=== PATIENT | female | born 1990 | race Caucasian/White ===

== ENCOUNTER 2018-06-02 06:55 | Emergency (ER) | payer MEDICAID, SELFPAY ==
[2018-06-02 07:55] LABS: Absolute Lymphocytes (CBC) 2.1 K/uL (0.7-4.9); Absolute Monocytes 0.4 K/uL (0.1-1.3); Absolute Neutrophil 4.2 K/uL (1.8-8.0); Basophils % 0.5 % (0-1.3); Eosinophils % 1.3 % (0-4.4); Lymphocytes % 31.2 % (15.3-44.8); MCH 32.2 pg (27.0-35.0); MCV 92.1 fL (80-100); MPV 10.5 fL (7.6-11.3); Monocytes % 5.3 % (3.3-12.3); RBC Red Blood Cell Count 4.56 M/uL (3.86-4.86)
[2018-06-02 08:13] LABS: BUN Blood Urea Nitrogen 10 mg/dL (7-18); Bicarbonate 24 mmol/L (21-32); Glucose Level 97 mg/dL (74-106); Potassium 3.7 mmol/L (3.5-5.1); Sodium Level 137 mmol/L (136-145)
[2018-06-02 08:22] LABS: HCG, Quantitative 1038 mIU/mL (1-3)
[2018-06-02 08:42] LABS: Urine RBC <5 /HPF (NONE SEEN)
[2018-06-02 08:43] LABS: Urine Bacteria <20 /HPF (<20); Urine Culture Reflex Order NOT NEEDED
[2018-06-02 09:21] LABS: Urine Blood NEGATIVE (NEG); Urine Glucose NEGATIVE (NEG); Urine Protein NEGATIVE (NEG); Urine Specific Gravity 1.025 (1.005-1.030)
--- NOTE | 2018-06-02 10:07 | EDPHYS ---
Physician Documentation [facility] Name: Verenice Ovalle Age: 27 yrs Sex: Female : 1990 Arrival Date: 06/02/2018 Time: 06:58 Bed 8 Private MD: ED Physician Patric Martinez HPI: 06/02 07:42 This 27 yrs old Female presents to ER via Ambulatory with complaints of rn Vaginal Bleeding, + Preg <12wks. 07:42 The patient presents to the emergency department with vaginal bleeding, that is light, rn with no clots. The estimated gestational age is 6 weeks. course: care: none, Leakage of Fluid: none appreciated, Ultrasound: the patient has not had an ultrasound. Previous pregnancies: in previous pregnancies patient has had. The patient has experienced similar episodes in the past. at approx 6-7 weeks by LMP presents with vaginal bleeding, light, assoc with lower abd cramping, similar episodes in past with 2 previous miscarriages as well as when she had her daughter. No trauma. States is RH-.. 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 - Social history:: Smoking status: Patient/guardian denies using tobacco. - Ebola Screening: : No symptoms or risks identified at this time. - Family history:: not pertinent. - Hospitalizations: : No recent hospitalization is reported. ROS: 07:42 Constitutional: Negative for fever, chills, and weight loss, Eyes: Negative for injury, rn pain, redness, and discharge, Neck: Negative for injury, pain, and swelling, Cardiovascular: Negative for chest pain, palpitations, and edema, Respiratory: Negative for shortness of breath, cough, wheezing, and pleuritic chest pain, Abdomen/GI: + lower abd cramping Back: Negative for injury and pain, : + vaginal bleeding MS/Extremity: Negative for injury and deformity, Skin: Negative for injury, rash, and discoloration, Neuro: Negative for headache, weakness, numbness, tingling, and seizure. Exam: 07:42 Constitutional: This is a well developed, well nourished patient who is awake, alert, rn and in no acute distress. Head/Face: Normocephalic, atraumatic. Eyes: Pupils equal round and reactive to light, extra-ocular motions intact. Lids and lashes normal. Conjunctiva and sclera are non-icteric and not injected. Cornea within normal limits. Periorbital areas with no swelling, redness, or edema. Abdomen/GI: soft, non-tender Back: No spinal tenderness. No costovertebral tenderness. Full range of motion. Skin: Warm, dry with normal turgor. Normal color with no rashes, no lesions, and no evidence of cellulitis. MS/ Extremity: Pulses equal, no cyanosis. Neurovascular intact. Full, normal range of motion. Equal circumference. Neuro: Awake and alert, GCS 15, oriented to person, place, time, and situation. Cranial nerves II-XII grossly intact. Motor strength 5/5 in all extremities. Sensory grossly intact. Cerebellar exam normal. Normal gait. Vital Signs: 07:03 BP 139 / 99; Pulse 87; Resp 18 S; Temp 98.8(O); Pulse Ox 98% on R/A; Weight 86.18 kg aa5 (R); Height 5 ft. 10 in. (177.80 cm) (R); Pain 7/10; 07:03 Body Mass Index 27.26 (86.18 kg, 177.80 cm) aa5 MDM: 07:01 Patient medically screened. rn 10:05 Differential diagnosis: ectopic . Data reviewed: vital signs, nurses notes, rn family practice test result(s), radiologic studies, ultrasound, and as a result, I will discharge patient. Counseling: I had a detailed discussion with the patient and/or guardian regarding: the historical points, exam findings, and any diagnostic results supporting the discharge/admit diagnosis, lab results, radiology results, the need for outpatient follow up, to return to the emergency department if symptoms worsen or persist or if there are any questions or concerns that arise at home. Special discussion: I discussed with the patient/guardian in detail that at this point there is no indication for admission to the hospital. It is understood, however, that if the symptoms persist or worsen the patient needs to return immediately for re-evaluation. Based on the history and exam findings, there is no indication for further emergent testing or inpatient evaluation. I discussed with the patient/guardian the need to see the OB Gyne specialist for further evaluation of the symptoms. ED course: Unclear ultrasound, mild bleeding, normal labs, normal urine, UPT +, beta 1000, return in 48 hours for repeat. Rhogam given.. 06/02 07:13 Order name: Quantitative Hcg; Complete Time: 08:39 rn 06/02 07:13 Order name: Abo/rh Typing 06/02 07:13 Order name: Basic Metabolic Panel; Complete Time: 08:39 rn 06/02 07:13 Order name: CBC with Diff; Complete Time: 08:03 rn 06/02 08:06 Order name: Urine Microscopic Only; Complete Time: 10:04 06/02 08:11 Order name: Urine Dipstick--Ancillary (enter results); Complete Time: 10:04 06/02 07:13 Order name: US Transvaginal Ob; Complete Time: 10:30 rn 06/02 08:11 Order name: Urine --Ancillary (enter results); Complete Time: 10:04 06/02 08:51 Order name: Antibody Screen [facility] 06/02 09:16 Order name: Rh Typing [facility] 06/02 09:16 Order name: Fetalscreen [facility] 06/02 09:16 Order name: Cord Rh type [facility] 06/02 09:16 Order name: Rhogam [facility] 06/02 07:13 Order name: Urine Test (obtain specimen); Complete Time: 07:48 06/02 07:13 Order name: IV Saline Lock; Complete Time: 07:43 06/02 07:13 Order name: Labs collected and sent; Complete Time: 07:43 rn 06/02 07:13 Order name: NPO; Complete Time: 07:43 rn 06/02 07:13 Order name: Urine Dipstick-Ancillary (obtain specimen); Complete Time: 07:43 rn Administered Medications: 10:28 Drug: RhoGAM (Human) 300 mcg Route: IM; Site: right deltoid; jl7 10:52 Follow up: Response: No adverse reaction aa5 Disposition: 06/02/18 10:06 Discharged to Home. Impression: Threatened . - Condition is Stable. - Discharge Instructions: Threatened Miscarriage, Vaginal Bleeding During , First Trimester, Pelvic Rest. - Medication Reconciliation Form, Thank You Letter, Antibiotic Education, Prescription Opioid Use form. - Follow up: Private Physician; When: As needed; Reason: Recheck today's complaints, Re-evaluation by your physician. - Problem is new. - Symptoms have improved. Signatures: Dispatcher [employer] EDMS Patric Martinez MD MD rn Calderon, Audri RN RN aa5 Misty Gómez RN RN jl7 Corrections: (The following items were deleted from the chart) 10:54 10:06 06/02/2018 10:06 Discharged to Home. Impression: Threatened . Condition aa5 is Stable. Forms are Medication Reconciliation Form, Thank You Letter, Antibiotic Education, Prescription Opioid Use. Follow up: Private Physician; When: As needed; Reason: Recheck today's complaints, Re-evaluation by your physician. Problem is new. Symptoms have improved. rn
--- NOTE | 2018-06-02 10:07 | ER ---
Nurse's Notes [facility] Name: Verenice Ovalle Age: 27 yrs Sex: Female : 1990 Arrival Date: 06/02/2018 Time: 06:58 Bed 8 Private MD: Diagnosis: Threatened Presentation: 06/02 07:00 Presenting complaint: Patient states: lower abd cramping and vaginal bleeding that aa5 began this morning. 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 Pt reports positive test yesterday. 07:00 Transition of care: patient was not received from another setting of care. Onset of aa5 symptoms was June 02, 2018. Risk Assessment: Do you want to hurt yourself or someone else? Patient reports no desire to harm self or others. Initial Sepsis Screen: Does the patient meet any 2 criteria? No. Patient's initial sepsis screen is negative. Does the patient have a suspected source of infection? No. Patient's initial sepsis screen is negative. Care prior to arrival: None. 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 - Social history:: Smoking status: Patient/guardian denies using tobacco. - Ebola Screening: : No symptoms or risks identified at this time. - Family history:: not pertinent. - Hospitalizations: : No recent hospitalization is reported. Screenin:37 Abuse screen: Denies threats or abuse. Denies injuries from another. Nutritional jl7 screening: No deficits noted. Tuberculosis screening: No symptoms or risk factors identified. Fall Risk IV access (20 points). Total Babocck Fall Scale indicates No Risk (0-24 pts). Assessment: 07:37 Obstetrical Assessment: General assessment: awake and alert, skin warm and dry, jl7 respirations even and unlabored. Pain: Complains of pain in suprapubic area Quality of pain is described as crampy, Pain began This morning Is continuous. GI: No signs and/or symptoms were reported involving the gastrointestinal system. : Reports cramping, vaginal bleeding that is light flow. 08:30 Reassessment: No changes from previously documented assessment. Patient and/or family jl7 updated on plan of care and expected duration. Pain level reassessed. Patient is alert, oriented x 3, equal unlabored respirations, skin warm/dry/pink. 09:48 Reassessment: Patient appears in no apparent distress at this time. Patient and/or sg family updated on plan of care and expected duration. Pain level reassessed. awaiting lab results at this time, pt stated understanding, will continue to monitor. 10:06 Reassessment: Awaiting RhoGam from blood bank. Updated pt, pt verbalized understanding. jl7 10:52 Reassessment: Patient is alert, oriented x 3, equal unlabored respirations, skin aa5 warm/dry/pink. Vital Signs: 07:03 BP 139 / 99; Pulse 87; Resp 18 S; Temp 98.8(O); Pulse Ox 98% on R/A; Weight 86.18 kg aa5 (R); Height 5 ft. 10 in. (177.80 cm) (R); Pain 7/10; 07:03 Body Mass Index 27.26 (86.18 kg, 177.80 cm) aa5 Vitals: 07:40 Heart Tones Does not meet criteria. jl7 ED Course: 06:58 Patient arrived in ED. am2 07:00 Arm band placed on Patient placed in an exam room, on a stretcher. aa5 07:01 Patric Martinez MD is Attending Physician. rn 07:07 Triage completed. aa5 07:16 Radiology exam delayed due to lab results not completed at this time. (HCG) aa4 test not completed at this time. 07:34 Misty Gómez, RN is Primary Nurse. jl7 07:37 Patient has correct armband on for positive identification. Placed in gown. Bed in low jl7 position. Call light in reach. Side rails up X 1. Pulse ox on. NIBP on. 07:37 Initial lab(s) drawn, by me, sent to lab. Inserted saline lock: 20 gauge in right jl7 antecubital area, using aseptic technique. Blood collected. 08:09 Urine collected: clean catch specimen, clear, eusebio colored. jb1 08:41 US Transvaginal Ob In Process Unspecified. EDMS 10:51 No provider procedures requiring assistance completed. IV discontinued, intact, aa5 bleeding controlled, No redness/swelling at site. Pressure dressing applied. Administered Medications: 10:28 Drug: RhoGAM (Human) 300 mcg Route: IM; Site: right deltoid; jl7 10:52 Follow up: Response: No adverse reaction aa5 Outcome: 10:06 Discharge ordered by . rn 10:52 Discharged to home ambulatory. aa5 10:52 Condition: stable 10:52 Discharge instructions given to patient, Instructed on discharge instructions, follow up and referral plans. Demonstrated understanding of instructions, follow-up care. 10:54 Patient left the ED. aa5 Signatures: Dispatcher [employer] EDMS Michael Casiano jb1 Marvin Schreiber RN RN Kira Hagan4 Patric Martinez MD MD rn Calderon, Audri, RN RN aa5 Misty Gómez RN RN jl7 Kira Jurado
--- NOTE | 2018-06-02 10:11 | RAD REPORT ---
EXAM DESCRIPTION: US - Transvaginal OB - 06/02/2018 9:11 am CLINICAL HISTORY: Abd pain;Vaginal bleeding COMPARISON: TRANSVAGINALOB dated 03/26/2014 FINDINGS: An irregularly-shaped collection is present in the fundal region of the endometrium measur ing 15 x 13 x 6 mm. This does not have the appearance or shape of a normal gestational sac. There is no abnormal internal IUP finding. Endometrial thickening is seen to measure up to 2 cm. The maternal adnexa and ovaries are within normal limits. Normal Doppler blood flow was demonstrated to both ovaries. 2.8 x 2.6 cm right ovarian cyst. IMPRESSION: Normal findings of an IUP are not seen. There is an a irregular shaped fluid collection in the fundal endometrium. In the setting of a positive HCG, findings indicate a of unknown location. Advise follow-up serial HCG levels and ultrasound in 10-12 days.
== END 2018-06-02 10:54 | disposition home or self-care (01) ==
LOC: ER 06:55
DX: O20.0 Threatened abortion (principal); Z3A.01 Less than 8 weeks gestation of pregnancy; Z88.0 Allergy status to penicillin
CPT/HCPCS: 36415; 76817; 80048; 81003; 81015; 81025; 84702; 85025; 86850; 86900; 86901; 96372; 99284; J2790

== ENCOUNTER 2018-06-04 06:39 | Emergency (ER) | payer OTHER, SELFPAY ==
--- NOTE | 2018-06-04 08:01 | ER ---
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 Transition of care: patient was not received from another setting of care. Onset of symptoms is unknown. Risk Assessment: Do you want to hurt yourself or someone else? Patient reports no desire to harm self or others. Initial Sepsis Screen: Does the patient meet any 2 criteria? No. Patient's initial sepsis screen is negative. Does the patient have a suspected source of infection? No. Patient's initial sepsis screen is negative. Care prior to arrival: None. 07:03 Method Of Arrival: Ambulatory bb 07:03 Acuity: YUDI 4 bb Triage Assessment: 07:06 General: Appears in no apparent distress. Behavior is calm, cooperative. Pain: Denies bb pain. Neuro: Level of Consciousness is awake, alert, obeys commands, Oriented to person, place, time, situation. : Denies vaginal bleeding. SLP: 07:06 4, Full Term 1, Premature 0, 2, Living 1, LMP 04/19/2018 bb Historical: - Allergies: 07:06 PENICILLINS; bb - Home Meds: 07:06 None [Active]; bb - PMHx: 07:06 None; bb - PSHx: 07:06 Tonsillectomy; bb - Immunization history:: Adult Immunizations up to date. - Social history:: Smoking status: Patient/guardian denies using tobacco, Patient/guardian denies using alcohol, street drugs. - Ebola Screening: : No symptoms or risks identified at this time. Screenin:08 Abuse screen: Denies threats or abuse. Nutritional screening: No deficits noted. bb Tuberculosis screening: No symptoms or risk factors identified. Fall Risk None identified. Assessment: 07:08 Reassessment: No changes from previously documented assessment. see triage assessment. bb 07:54 Reassessment: Patient appears in no apparent distress at this time. Patient and/or em family updated on plan of care and expected duration. Pain level reassessed. Patient is alert, oriented x 3, equal unlabored respirations, skin warm/dry/pink. Vital Signs: 07:06 BP 134 / 96; Pulse 77; Resp 16 S; Temp 98.4(O); Pulse Ox 97% on R/A; Weight 86.18 kg bb (R); Height 5 ft. 10 in. (177.80 cm) (R); Pain 0/10; 07:54 BP 128 / 86; Pulse 68; Resp 19; Pulse Ox 100% on R/A; Pain 0/10; em 07:06 Body Mass Index 27.26 (86.18 kg, 177.80 cm) ED Course: 06:41 Patient arrived in ED. 07:02 Brittni Carl NP is PHCP. 1 07:02 Kenrick Main MD is Attending Physician. 1 07:05 Triage completed. bb 07:06 Arm band placed on Patient placed in an exam room, on a stretcher, on pulse oximetry. bb 07:08 Patient has correct armband on for positive identification. Bed in low position. Call bb light in reach. Side rails up X 1. 07:08 No provider procedures requiring assistance completed. 07:09 Louie Marie LVN is Primary Nurse. em 08:00 Alli Biswas MD is Referral Physician. rh1 08:17 Patient did not have IV access during this emergency room visit. em Administered Medications: No medications were administered Outcome: 08:00 Discharge ordered by MD. 1 08:17 Discharged to home ambulatory. em 08:17 Condition: good 08:17 Discharge instructions given to patient, Instructed on discharge instructions, follow up and referral plans. Demonstrated understanding of instructions, follow-up care. 08:18 Patient left the ED. em Signatures: Vannesa Vazquez Louie Marie LVN LVN em Tracy Lee RN RN bb Brittni Carl NP HYDRAULIC DREDGE OPERATOR rh1
--- NOTE | 2018-06-04 08:01 | EDPHYS ---
Physician Documentation [facility] Name: Verenice Ovalle Age: 27 yrs Sex: Female : 1990 Arrival Date: 06/04/2018 Time: 06:41 Bed 18 Private MD: ED Physician Kenrick Main HPI: 06/04 07:15 This 27 yrs old Female presents to ER via Ambulatory with complaints of Want rh1 hcg levels checked. 07:15 She was here 2 days ago with Hcg 1000 and here to have repeat level. US showed rh1 irregular fluid collection in fundus, without normal IUP findings. She denies any further bleeding, last night had some cramping which is resolved today.. Onset: The symptoms/episode began/occurred 3 day(s) ago. Associated signs and symptoms: The patient has no apparent associated signs or symptoms. Severity of symptoms: At their worst the symptoms were moderate in the emergency department the symptoms have improved. The patient has experienced similar episodes in the past. The patient has been recently seen by a physician: 2 day(s) ago. 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 - Social history:: Smoking status: Patient/guardian denies using tobacco, Patient/guardian denies using alcohol, street drugs. - Ebola Screening: : No symptoms or risks identified at this time. ROS: 07:15 Constitutional: Negative for fever, chills rh1 07:15 Cardiovascular: Negative for chest pain, edema. 07:15 Respiratory: Negative for shortness of breath. 07:15 Abdomen/GI: Negative for abdominal pain, nausea, vomiting, and diarrhea. 07:15 : Negative for vaginal bleeding, vaginal discharge. 07:15 Skin: Negative for diaphoresis, discoloration. 07:15 Neuro: Negative for dizziness, syncope, near syncope. 07:15 All other systems are negative. Exam: 07:15 Constitutional: This is a well developed, well nourished patient who is awake, alert, rh1 and in no acute distress. Head/Face: Normocephalic, atraumatic. Cardiovascular: Regular rate and rhythm with a normal S1 and S2. No gallops, murmurs, or rubs. No JVD. No pulse deficits. Respiratory: Lungs have equal breath sounds bilaterally, clear to auscultation. No rales, rhonchi or wheezes noted. No increased work of breathing. Abdomen/GI: Soft, non-tender, with normal bowel sounds. No distension. No guarding or rebound. No evidence of tenderness throughout. Back: No spinal tenderness. No costovertebral tenderness. Full range of motion. Skin: Warm, dry with normal turgor. Normal color with no rashes, no lesions, and no evidence of cellulitis. 07:15 Eyes: Pupils: equal, right pupil is approximately 3 mm(s), left pupil is approximately 3 mm(s), Extraocular movements: intact throughout. 07:15 Cardiovascular: Edema: is not appreciated. 07:15 Musculoskeletal/extremity: Calves: are non-tender, have equal circumference. 07:15 Neuro: Orientation: is normal, to person, place \T\ time. Mentation: is normal, lucid, able to follow commands, Motor: is normal, moves all fours, Sensation: is normal, no obvious gross deficits, Gait: is steady, at a normal pace, without difficulty. Vital Signs: 07:06 BP 134 / 96; Pulse 77; Resp 16 S; Temp 98.4(O); Pulse Ox 97% on R/A; Weight 86.18 kg bb (R); Height 5 ft. 10 in. (177.80 cm) (R); Pain 0/10; 07:54 BP 128 / 86; Pulse 68; Resp 19; Pulse Ox 100% on R/A; Pain 0/10; em 07:06 Body Mass Index 27.26 (86.18 kg, 177.80 cm) bb MDM: 07:15 Patient medically screened. rh1 07:59 Data reviewed: vital signs, nurses notes, lab test result(s), and as a result, I will 1 discharge patient. Data interpreted: Pulse oximetry: on room air is 97 %. Interpretation: normal. Counseling: I had a detailed discussion with the patient and/or guardian regarding: the historical points, exam findings, and any diagnostic results supporting the discharge/admit diagnosis, lab results, the need for outpatient follow up, an OB/Gyne specialist, to return to the emergency department if symptoms worsen or persist or if there are any questions or concerns that arise at home. 06/04 07:09 Order name: HCG-Quantitative; Complete Time: 07:59 rh1 Administered Medications: No medications were administered Disposition: 08:19 Co-signature as Attending Physician, Kenrick Main MD I agree with the assessment and kdr plan of care. Disposition: 06/04/18 08:00 Discharged to Home. Impression: Threatened . - Condition is Stable. - Discharge Instructions: Threatened Miscarriage, Vaginal Bleeding During , First Trimester, Pelvic Rest. - Medication Reconciliation Form, Thank You Letter, Antibiotic Education, Prescription Opioid Use form. - Follow up: Alli Biswas MD; When: 1 - 2 days; Reason: Further diagnostic work-up, Recheck today's complaints, Continuance of care. Follow up: Emergency Department; When: As needed; Reason: Fever > 102 F, If symptoms return, Trouble breathing, Worsening of condition. - Problem is an ongoing problem. - Symptoms are unchanged. - Notes: 06/03/18: Hcg 1038 06/04/18: Hcg [address] Biswas in 2 - 3 days for re - check of Hcg and repeat US. Signatures: Dispatcher [employer] Knerick Valdes MD MD kdr Munoz, Edgar, VEGETABLE GROWER VEGETABLE GROWER em Tracy Lee, RAAD RN Brittni Acosta, WAITER/WAITRESS CAFETERIA WAITER/WAITRESS CAFETERIA rh1 Corrections: (The following items were deleted from the chart) 07:17 07:15 She was here 2 days ago with Hcg 1000 and here to have repeat level. She denies rh1 any further bleeding, last night had some cramping which is resolved today.. rh1 08:18 08:00 06/04/2018 08:00 Discharged to Home. Impression: Threatened . Condition em is Stable. Forms are Medication Reconciliation Form, Thank You Letter, Antibiotic Education, Prescription Opioid Use. Follow up: Alli Biswas; When: 1 - 2 days; Reason: Further diagnostic work-up, Recheck today's complaints, Continuance of care. Follow up: Emergency Department; When: As needed; Reason: Fever > 102 F, If symptoms return, Trouble breathing, Worsening of condition. Problem is an ongoing problem. Symptoms are unchanged. rh1
== END 2018-06-04 08:18 | disposition home or self-care (01) ==
LOC: ER 06:39
DX: O20.0 Threatened abortion (principal); Z3A.01 Less than 8 weeks gestation of pregnancy; Z88.0 Allergy status to penicillin
CPT/HCPCS: 36415; 84702; 99283

== ENCOUNTER 2018-06-18 20:02 | Emergency (ER) | payer OTHER ==
[2018-06-18 20:40] LABS: Urine Blood NEGATIVE (NEG); Urine Glucose NEGATIVE (NEG); Urine Protein NEGATIVE (NEG); Urine pH 6.5 (5.0-7.0)
[2018-06-18 20:48] LABS: Absolute Lymphocytes (CBC) 2.2 K/uL (0.7-4.9); Absolute Monocytes 0.5 K/uL (0.1-1.3); Absolute Neutrophil 7.8 K/uL (1.8-8.0); Basophils % 0.5 % (0-1.3); Eosinophils % 0.4 % (0-4.4); Lymphocytes % 20.8 % (15.3-44.8); MCH 31.8 pg (27.0-35.0); MCV 91.2 fL (80-100); MPV 10.3 fL (7.6-11.3); Monocytes % 4.8 % (3.3-12.3); RBC Red Blood Cell Count 4.72 M/uL (3.86-4.86)
[2018-06-18 21:38] LABS: BUN Blood Urea Nitrogen 9 mg/dL (7-18); Bicarbonate 25 mmol/L (21-32); Glucose Level 91 mg/dL (74-106); HCG, Quantitative 39188 mIU/mL (1-3); Potassium 3.7 mmol/L (3.5-5.1); Sodium Level 139 mmol/L (136-145)
--- NOTE | 2018-06-18 22:38 | RAD REPORT ---
EXAM DESCRIPTION: US - Transvaginal OB - 06/18/2018 10:24 pm CLINICAL HISTORY: ABD CRAMPING, COMPARISON: Transvaginal OB dated 06/02/2018 FINDINGS: A single gestational sac is seen within the uterus. The shape of the sac is within normal limits for gestational age. Within the sac is a single pole with crown-rump length of 11 mm, co rrelating to estimated gestational age of 7 weeks 1 day. Estimated date of delivery is 02/04/2019. Heart rate is 140 BPM, normal. The placenta is not yet developed due to early gestational age. The maternal adnexa and right ovary are within normal limits. Normal Doppler blood flow was demonstra lul to the right ovary. The left ovary was obscured by bowel gas. IMPRESSION: Single live early intrauterine gestation with estimated gestational age of 7 weeks 0 day s, EMA 02/04/2019. No unusual or unexpected finding.
--- NOTE | 2018-06-18 22:52 | ER ---
Nurse's Notes [facility] Name: Verenice Ovalle Age: 27 yrs Sex: Female : 1990 Arrival Date: 06/18/2018 Time: 20:03 Bed 24 Private MD: Diagnosis: related conditions, unspecified, first trimester Presentation: 06/18 20:07 Presenting complaint: Patient states: I was and I think I had a miscarriage la1 one month ago, I had an ultrasound at that time and it said there was no sac or anything and told be to follow up with an OB. I have not been able to get an appointment so I am here to get checked out. Pt denies vaginal bleeding or discharge. Transition of care: patient was not received from another setting of care. Onset of symptoms was June 18, 2018. Risk Assessment: Do you want to hurt yourself or someone else? Patient reports no desire to harm self or others. Initial Sepsis Screen: Does the patient meet any 2 criteria? No. Patient's initial sepsis screen is negative. Does the patient have a suspected source of infection? No. Patient's initial sepsis screen is negative. Care prior to arrival: None. 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 - Social history:: Smoking status: Patient/guardian denies using tobacco. - Ebola Screening: : No symptoms or risks identified at this time. Screenin:15 Abuse screen: Denies threats or abuse. Denies injuries from another. Nutritional kr2 screening: No deficits noted. Tuberculosis screening: No symptoms or risk factors identified. Fall Risk None identified. Assessment: 20:15 General: Appears in no apparent distress. comfortable, well groomed, well developed, kr2 well nourished, Behavior is calm, cooperative, appropriate for age. Pain: Denies pain. Neuro: Level of Consciousness is awake, alert, obeys commands, Oriented to person, place, time, situation, Appropriate for age. Cardiovascular: Capillary refill < 3 seconds in bilateral fingers Patient's skin is warm and dry. Respiratory: Airway is patent Respiratory effort is even, unlabored, Respiratory pattern is regular, symmetrical, Breath sounds are clear bilaterally. GI: Abdomen is flat, non-distended. : Urine is clear, Denies vaginal bleeding. EENT: Oral mucosa is moist. Derm: Skin is intact, is healthy with good turgor, Skin is pink, warm \T\ dry. Musculoskeletal: Circulation, motion, and sensation intact. 21:15 Reassessment: Patient appears in no apparent distress at this time. Patient and/or kr2 family updated on plan of care and expected duration. Pain level reassessed. Patient is alert, oriented x 3, equal unlabored respirations, skin warm/dry/pink. Patient denies pain at this time. 22:04 Reassessment: Patient appears in no apparent distress at this time. Patient and/or kr2 family updated on plan of care and expected duration. Pain level reassessed. Patient is alert, oriented x 3, equal unlabored respirations, skin warm/dry/pink. Ultrasound in room at this time. 22:58 Reassessment: Patient appears in no apparent distress at this time. Patient and/or kr2 family updated on plan of care and expected duration. Pain level reassessed. Patient is alert, oriented x 3, equal unlabored respirations, skin warm/dry/pink. Patient denies pain at this time. Vital Signs: 20:08 BP 120 / 81; Pulse 85; Resp 16; Temp 97.3; Pulse Ox 98% on R/A; Weight 88 kg; Height 5 la1 ft. 10 in. (177.80 cm); 22:00 BP 122 / 78; Pulse 80; Resp 16; Pulse Ox 100% ; kr2 23:00 BP 118 / 80; Pulse 84; Resp 17; Pulse Ox 99% ; kr2 20:08 Body Mass Index 27.84 (88.00 kg, 177.80 cm) la1 ED Course: 20:03 Patient arrived in ED. es 20:07 Arm band placed on right wrist. la1 20:08 Triage completed. la1 20:09 Declan Melendrez PA is PHCP. cp 20:09 Wyatt Lopez MD is Attending Physician. cp 20:15 Bed in low position. Call light in reach. Side rails up X 1. Side rails up X2. jp3 20:30 Urine collected: clean catch specimen, clear, eusebio colored. jp3 20:45 Initial lab(s) drawn, by me, sent to lab. Inserted saline lock: 20 gauge in right jp3 antecubital area, using aseptic technique. Blood collected. 20:45 T\T\S collected, blood band applied to patient. jp3 20:46 Warm blanket given. Pillow given. Pulse ox on. NIBP on. jp3 20:47 Quantitative Hcg Sent. jp3 20:47 Abo/rh Typing Sent. jp3 20:47 Basic Metabolic Panel Sent. jp3 20:47 CBC with Diff Sent. jp3 21:40 Eugenia Nicole, RN is Primary Nurse. kr2 22:25 Transvaginal Ob In Process Unspecified. EDWA 22:41 Romaine Davila MD is Referral Physician. cp 22:59 No provider procedures requiring assistance completed. IV discontinued, intact, kr2 bleeding controlled, No redness/swelling at site. Pressure dressing applied. Administered Medications: No medications were administered Outcome: 22:42 Discharge ordered by MD. cp 22:59 Discharged to home ambulatory. kr2 22:59 Condition: good 22:59 Discharge instructions given to patient, Instructed on discharge instructions, follow up and referral plans. medication usage, Demonstrated understanding of instructions, follow-up care, medications, Prescriptions given X 1. 23:01 Patient left the ED. kr2 Signatures: Dispatcher [employer] EDWA Vannesa Vazquez Lee, RN RN la1 Declan Melendrez PA PA Eugenia Nicole, RAAD RN kr2 [place] jp3 Corrections: (The following items were deleted from the chart) 22:59 20:15 : Urine is clear, kr2 kr2
--- NOTE | 2018-06-18 22:52 | EDPHYS ---
Physician Documentation [facility] Name: Verenice Ovalle Age: 27 yrs Sex: Female : 1990 Arrival Date: 06/18/2018 Time: 20:03 Bed 24 Private MD: ED Physician Wyatt Lopez HPI: 06/18 20:30 This 27 yrs old Female presents to ER via Ambulatory with complaints of CHECK cp FOR BABY. 20:30 The patient presents to the emergency department with lower lateral abdomen cramping. cp 20:30 course: care: none, Leakage of Fluid: none appreciated, Ultrasound: cp the patient had an ultrasound, which showed no gestational sac noted. Associated signs and symptoms: Pertinent positives: vaginal discharge, Pertinent negatives: chest pain, diarrhea, dysuria, fever, vaginal bleeding, vomiting. 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 - Social history:: Smoking status: Patient/guardian denies using tobacco. - Ebola Screening: : No symptoms or risks identified at this time. ROS: 20:35 Constitutional: Negative for body aches, chills, fever, poor PO intake. cp 20:35 Eyes: Negative for injury, pain, redness, and discharge. cp 20:35 ENT: Negative for drainage from ear(s), ear pain, sore throat, difficulty swallowing, difficulty handling secretions. 20:35 Cardiovascular: Negative for chest pain, palpitations. 20:35 Respiratory: Negative for cough, shortness of breath, wheezing. 20:35 Abdomen/GI: Positive for abdominal cramps, of the lateral lower abomen bilaterally, Negative for vomiting, diarrhea, constipation, anorexia, black/tarry stool, rectal bleeding. 20:35 Back: Negative for pain at rest, pain with movement. 20:35 : Positive for vaginal discharge, Negative for urinary symptoms, vaginal bleeding, leakage of fluids. 20:35 Skin: Negative for cellulitis, rash. 20:35 Neuro: Negative for altered mental status, headache, weakness. Exam: 20:42 Constitutional: The patient appears in no acute distress, alert, awake, non-toxic, well cp developed, well nourished. 20:42 Head/Face: Normocephalic, atraumatic. cp 20:42 Eyes: Periorbital structures: appear normal, Conjunctiva: normal, no exudate, no injection, Sclera: no appreciated abnormality, Lids and lashes: appear normal, bilaterally. 20:42 ENT: External ear(s): are unremarkable, Nose: is normal, Mouth: Lips: moist, Oral mucosa: pink and intact, moist, Posterior pharynx: is normal, airway is patent, no erythema, no exudate, Voice: is normal. 20:42 Chest/axilla: Inspection: normal, Palpation: is normal, no crepitus, no tenderness. 20:42 Cardiovascular: Rate: normal, Rhythm: regular, Edema: is not appreciated. 20:42 Respiratory: the patient does not display signs of respiratory distress, Respirations: normal, no use of accessory muscles, no retractions, no splinting, no tachypnea, labored breathing, is not present, Breath sounds: are clear throughout, no decreased breath sounds, no stridor, no wheezing. 20:42 Abdomen/GI: Inspection: abdomen appears normal, Bowel sounds: active, all quadrants, Palpation: abdomen is soft and non-tender, in all quadrants, rebound tenderness, is not appreciated, voluntary guarding, is not appreciated, involuntary guarding, is not appreciated. 20:42 Back: pain, is absent, ROM is normal. 20:42 Skin: cellulitis, is not appreciated, no rash present. 20:42 Neuro: Orientation: to person, place \T\ time. Mentation: is normal, Cerebellar function: is grossly normal, Motor: is normal, Sensation: is normal. Vital Signs: 20:08 BP 120 / 81; Pulse 85; Resp 16; Temp 97.3; Pulse Ox 98% on R/A; Weight 88 kg; Height 5 la1 ft. 10 in. (177.80 cm); 22:00 BP 122 / 78; Pulse 80; Resp 16; Pulse Ox 100% ; kr2 23:00 BP 118 / 80; Pulse 84; Resp 17; Pulse Ox 99% ; kr2 20:08 Body Mass Index 27.84 (88.00 kg, 177.80 cm) la1 MDM: 20:10 Patient medically screened. cp 20:30 Differential diagnosis: STD, ectopic . cp 22:40 Data reviewed: vital signs, nurses notes, lab test result(s), radiologic studies, cp ultrasound. 22:40 Counseling: I had a detailed discussion with the patient and/or guardian regarding: the cp historical points, exam findings, and any diagnostic results supporting the discharge/admit diagnosis, lab results, radiology results, the need for outpatient follow up, an OB/Gyne specialist, to return to the emergency department if symptoms worsen or persist or if there are any questions or concerns that arise at home. 06/18 20:24 Order name: Urine Dipstick--Ancillary (enter results); Complete Time: 21:04 mw2 06/18 20:24 Order name: Urine --Ancillary (enter results); Complete Time: 21:04 mw2 06/18 21:05 Interpretation: Abnormal: URINE PREG POS. cp 06/18 20:25 Order name: Quantitative Hcg; Complete Time: 21:40 06/18 20:25 Order name: Abo/rh Typing; Complete Time: 21:40 06/18 20:25 Order name: Basic Metabolic Panel; Complete Time: 21:40 06/18 20:25 Order name: CBC with Diff; Complete Time: 21:04 06/18 20:10 Order name: Urine Dipstick-Ancillary (obtain specimen); Complete Time: 20:22 06/18 20:10 Order name: Urine Test (obtain specimen); Complete Time: 20:22 06/18 20:25 Order name: IV Saline Lock; Complete Time: 20:47 06/18 20:25 Order name: Labs collected and sent; Complete Time: 20:47 06/18 20:25 Order name: NPO; Complete Time: 20:47 06/18 21:40 Order name: US Transvaginal Ob cp Administered Medications: No medications were administered Disposition: 06/18/18 22:42 Discharged to Home. Impression: related conditions, unspecified, first trimester. - Condition is Stable. - Discharge Instructions: Abdominal Pain During . - Prescriptions for Vitamin 27- 0.8 mg Oral Tablet - take 1 tablet by ORAL route once daily; 60 tablet. - Medication Reconciliation Form, Thank You Letter, Antibiotic Education, Prescription Opioid Use form. - Follow up: Romaine Davila MD; When: 1 week; Reason: Recheck today's complaints. - Problem is new. - Symptoms have improved. Addendum: 06/26/2018 20:00 Co-signature as Attending Physician, Wyatt Lopez MD. tony [email or web address] Signatures: Dispatcher [employer] EDWyatt De Leon MD MD pkl Attema, Lee RN RN la1 Declan Melendrez PA PA Eugenia Cannon RN RN kr2 Corrections: (The following items were deleted from the chart) 06/18 23:01 22:42 06/18/2018 22:42 Discharged to Home. Impression: related conditions, kr2 unspecified, first trimester. Condition is Stable. Forms are Medication Reconciliation Form, Thank You Letter, Antibiotic Education, Prescription Opioid Use. Follow up: Romaine Davila; When: 1 week; Reason: Recheck today's complaints. Problem is new. Symptoms have improved. cp
== END 2018-06-18 23:01 | disposition home or self-care (01) ==
LOC: ER 20:02
DX: O26.891 Other specified pregnancy related conditions, first trimester (principal); R10.9 Unspecified abdominal pain; Z3A.01 Less than 8 weeks gestation of pregnancy
CPT/HCPCS: 36415; 76817; 80048; 81003; 81025; 84702; 85025; 86900; 86901; 99284

== ENCOUNTER 2022-12-13 01:46 | Observation (INO) | payer OTHER, SELFPAY ==
--- OUTSIDE RECORDS SUMMARY | 2022-12-13 01:49 | XMS REPORT | Continuity of Care Document ---
:1990 Author Organization [facility] t Address [address] [place] [address] [place] [id number] Care Team Providers Name Role Phone STELLA WHEELER Primary Care Physician Unavailable STELLA WHEELER Attending Clinician Unavailable Stella Wheeler MD Attending Clinician 2, [facility] Lab Attending Clinician Unavailable MEAGAN GRACE Attending Clinician Unavailable Meagan Grace MD Attending Clinician Frank Gonsalves MD Attending Clinician Ultrasound, Adc Mf Attending Clinician Unavailable Ortega Sommer MD Attending Clinician [phone] ORTEGA SOMMER Attending Clinician Unavailable Doctor Unassigned, [place] Attending Clinician Unavailable Khushboo Mcgovern MD Attending Clinician Jm Turner Attending Clinician KHUSHBOO MCGOVERN Attending Clinician Unavailable Angela Escoto PA-C Attending Clinician ANGELA ESCOTO Attending Clinician Unavailable Nurse, [facility] Attending Clinician Unavailable Pob, Ad[facility] Lab Main Attending Clinician Unavailable Only, Adc Test Attending Clinician Unavailable Room, Adc Wh Nst Attending Clinician Unavailable Ultrasound, [facility] Attending Clinician Unavailable Luanne JIMÉNEZ, Nano Amezquita Attending Clinician Jacqui Esposito MD Attending Clinician MEAGAN GRACE Admitting Clinician Unavailable LIAM, STELLA BARILLAS Admitting Clinician Unavailable Meagan Grace MD Admitting Clinician KHUSHBOO MCGOVERN Admitting Clinician Unavailable Khushboo Mcgovern MD Admitting Clinician Stella Wheeler MD Admitting Clinician Payers Payer Name Policy Type Policy Number Effective Date Expiration Date Paulo pabon [facility] [id number] 2020 00:00:00 [place] OF [place] [id number] 2020 00:00:00 Problems Condition Condition Condition Status Onset Resolution Last Treating Co mments Source Name Details Category Date Date Treatment Clinician Date Acute low Acute low Disease Active Uni vers back pain back pain 03-02 ity of without without 00:00: [place] sciatica, sciatica, 00 Medi ameena unspecifie unspecifie Br anch d back d back pain pain laterality laterality Acute Acute Disease Active Univers nonintract nonintract 8 it y of able able 00:00: [place] headache, headache, 00 Medi ameena unspecifie unspecifie Br anch d headache d headache type type Acute Acute Disease Active Univers blood loss blood loss 7-28 it y of anemia anemia 00:00: [place] [address] [facility] Branch Liveborn Liveborn Disease Active Unive rs infant, of infant, of 7-27 [place] y of [place] , , 00 [place] dical born in born in [facility] hospital by vaginal by vaginal delivery delivery Mild Mild Disease Active Univers pre-eclamp pre-eclamp 7-26 it y of jr in jr in 00:00: [place] third third 00 Medical trimester trimester Bran ch Obesity Obesity Disease Active Univers (BMI (BMI 5-26 ity of 30-39.9) 30-39.9) 00:00: [place] 00 Medical Branch History of History of Disease Active U john paul depression depression -03 it y of 00:00: [place] 00 [facility] Obesity Obesity Disease Active Univers during during 01-29 [place] [facility] Allergies, Adverse Reactions, Alerts Allergy Allergy Status Severity Reaction(s) Onset Inactive Treating Comm ents Source Name Type Date Date Clinician Penicill Propensi Active Hives Patient Unive rs in ty to 12-30 reported ity of adverse 00:00: hives and [place] reaction 00 itching, Medica l s denies Branch having her throat swell or close up PENICILL DRUG Active Hives Univers IN INGREDI 12-30 ity of 00:00: [place] 00 [facility] Social History Social Habit Start Date Stop Date Quantity Comments Source History of Current smoker [place] of tobacco use [facility] Exposure to 2022-03-14 2022-03-24 Not sure [facility] SARS-CoV-2 00:00:00 14:02:00 [facility] (event) [place] Alcohol intake 2022-03-24 2022-03-24 Ex-drinker [facility] 00:00:00 00:00:00 (finding) [facility] Tobacco use and 2022-02-12 2022-02-12 Smokeless tobacco Un iversity of exposure 00:00:00 00:00:00 non-user [facility] Sex [birth year] Universit y of 00:00:00 00:00:00 [facility] Smoking Status Start Date Stop Date Source Ex-smoker 2022-02-12 00:00:00 2022-02-12 00:00:00 Universi ty of [facility] Medications Ordered Filled Start Stop Current Ordering Indication Dosage Frequency Signature Comments Components Source Medication Medication Date Date Medication? Clinician (SIG) Name Name acetaminoph Yes [id number] 1{capsu Take 1 Univers en-caff-but 8- le} capsule by it y of albital 00:00: mouth [place] (ESGIC) per 00 every 4 Medic al capsule (four) Branch hours as needed (headache) . acetaminoph Yes [id number] 1{capsu Take 1 Univers en-caff-but 8- le} capsule by it y of albital 00:00: mouth [place] (ESGIC) per 00 every 4 Medic al capsule (four) Branch hours as needed (headache) . acetaminoph Yes [id number] 1{capsu Take 1 Univers en-caff-but 8- le} capsule by it y of albital 00:00: mouth [place] (ESGIC) per 00 every 4 Medic al capsule (four) Branch hours as needed (headache) . docusate 0 Yes [id number] 200mg Take 2 U nivers 100 mg 7-28 capsules ity of capsule 00:00: by mouth [place] 00 once daily Medical as needed Branch for Constipati on. ferrous 0 Yes [id number] 325mg Take 1 Un iggy sulfate 325 7-28 tablet by ity of mg (65 mg 00:00: [place] iron) 00 the Medical tablet morning. Branch ibuprofen 2021-0 Yes [id number] 600mg Take 1 Univers 600 mg 7-28 tablet by ity of tablet 00:00: mouth [place] 00 every 6 Medical (six) Branch hours as needed (Pain). Take with food or milk. PNV 67-iron 0 Yes [id number] 1{capsu Take 1 Univers ps-folate 7-28 le} capsule by ity of no.1-dha 00:00: mouth [place] (VITAFOL 00 daily. Medical ULTRA) 29 Branch mg iron- 1 mg-200 mg Cap docusate 0 Yes [id number] 200mg Take 2 U nivers 100 mg 7-28 capsules ity of capsule 00:00: by mouth [place] 00 once daily Medical as needed Branch for Constipati on. ferrous 2021-0 Yes [id number] 325mg Take 1 Un iggy sulfate 325 7-28 tablet by ity of mg (65 mg 00:00: [place] iron[place] 00 the Medical tablet morning. Branch ibuprofen 2021-0 Yes [id number] 600mg Take 1 Univers 600 mg 7-28 tablet by ity of tablet 00:00: mouth [place] 00 every 6 Medical (six) Branch hours as needed (Pain). Take with food or milk. PNV 67-iron 2021-0 Yes [id number] 1{capsu Take 1 Univers ps-folate 7-28 le} capsule by ity of no.1-dha 00:00: mouth [place] (VITAFOL 00 daily. Medical ULTRA) 29 Branch mg iron- 1 mg-200 mg Cap docusate Yes [id number] 200mg Take 2 U nivers 100 mg 7-28 capsules ity of capsule 00:00: by mouth [place] 00 once daily Medical as needed Branch for Constipati on. ferrous Yes [id number] 325mg Take 1 Un iggy sulfate 325 7-28 tablet by ity of mg (65 mg 00:00: mouth in [facility] s iron) 00 the Medical tablet morning. Branch ibuprofen Yes [id number] 600mg Take 1 Univers 600 mg 7-28 tablet by ity of tablet 00:00: mouth [place] 00 every 6 Medical (six) Branch hours as needed (Pain). Take with food or milk. PNV 67-iron Yes [id number] 1{capsu Take 1 Univers ps-folate 7-28 le} capsule by ity of no.1-dha 00:00: mouth [place] (VITAFOL 00 daily. Medical ULTRA) 29 Branch mg iron- 1 mg-200 mg Cap Immunizations Ordered Filled Immunization Date Status Comments [facility] e Immunization Name Name Rho (d) Immune 2022-02-26 Completed University of Globulin 00:00:00 [facility] Rho (d) Immune 2022-02-26 Completed University of Globulin 00:00:00 [facility] Rho (d) Immune 2022-02-26 Completed University of Globulin 00:00:00 [facility] Rho (d) Immune 2021-12-12 Completed University of Globulin 00:00:00 [facility] Rho (d) Immune 2021-12-12 Completed University of Globulin 00:00:00 [facility] Rho (d) Immune 2021-12-12 Completed University of Globulin 00:00:00 [facility] TDAP 2021-12-04 Completed University of 00:00:00 [facility] TDAP 2021-12-04 Completed University of 00:00:00 [facility] TDAP 2021-12-04 Completed University of 00:00:00 [facility] Rho (d) Immune 2021 Completed University of Globulin 00:00:00 [facility] Rho (d) Immune 2021 Completed University of Globulin 00:00:00 [facility] Rho (d) Immune 2021 Completed University of Globulin 00:00:00 [facility] Influenza Virus 2021-07-28 Completed Universit y of Vaccine Quad IM, 00:00:00 [place] Me dical Preserv and ABX Branch Free 6 MO-64 YRS Influenza Virus 2021-07-28 Completed Universit y of Vaccine [place] IM, 00:00:00 [place] Me dical Preserv and ABX Branch Free 6 MO-64 YRS Influenza Virus 2021-07-28 Completed Universit y of Vaccine [place] IM, 00:00:00 [facility] dical Preserv and ABX Branch Free 6 MO-64 YRS Rho (d) Immune 2020-11-27 Completed University of Globulin 00:00:00 [facility] Rho (d) Immune 2020-11-27 Completed University of Globulin 00:00:00 [facility] Rho (d) Immune 2020-11-27 Completed University of Globulin 00:00:00 [facility] Rho (d) Immune 2020-09-13 Completed University of Globulin 00:00:00 [facility] Rho (d) Immune 2020-09-13 Completed University of Globulin 00:00:00 [facility] Rho (d) Immune 2020-09-13 Completed University of Globulin 00:00:00 [facility] TDAP 2020-09-11 Completed University of 00:00:00 [facility] TDAP 2020-09-11 Completed University of 00:00:00 [facility] TDAP 2020-09-11 Completed University of 00:00:00 [facility] Influenza Virus 2020-06-18 Completed Universit y of Vaccine Quad .5 mL 00:00:00 [facility] IM 6+ MO Branch Influenza Virus 2020-06-18 Completed Universit y of Vaccine [place] .5 mL 00:00:00 [facility] IM 6+ MO Branch Influenza Virus 2020-06-18 Completed Universit y of Vaccine [place] .5 mL 00:00:00 [facility] IM 6+ MO Branch Rho (d) Immune 2019-01-29 Completed University of Globulin 00:00:00 [facility] Rho (d) Immune 2019-01-29 Completed University of Globulin 00:00:00 [facility] Rho (d) Immune 2019-01-29 Completed University of Globulin 00:00:00 [facility] TDAP (ADACEL) 2018-12-30 Completed University of VACCINE 00:00:00 [facility] TDAP (ADACEL) 2018-12-30 Completed University of VACCINE 00:00:00 [facility] TDAP (ADACEL) 2018-12-30 Completed University of VACCINE 00:00:00 [facility] Influenza Virus 2018-06-22 Completed Universit y of Vaccine Quad .5 mL 00:00:00 [facility] IM 6+ MO Branch Influenza Virus 2018-06-22 Completed Universit y of Vaccine Quad .5 mL 00:00:00 [facility] IM 6+ MO Branch Influenza Virus 2018-06-22 Completed Universit y of Vaccine Quad .5 mL 00:00:00 [facility] IM 6+ MO Branch Rho (d) Immune 2018-06-02 Completed University of Globulin 00:00:00 [facility] Rho (d) Immune 2018-06-02 Completed University of Globulin 00:00:00 [facility] Rho (d) Immune 2018-06-02 Completed University of Globulin 00:00:00 [facility] Vital Signs Vital Name Observation Time Observation Value Comments Source Systolic blood 2022-03-24 19:31:00 121 mm[Hg] Univer sity of pressure [facility] Diastolic blood 2022-03-24 19:31:00 77 mm[Hg] Unive rsity of [facility] Heart rate 2022-03-24 19:31:00 78 /min Universi ty [facility] Body temperature 2022-03-24 19:31:00 37.06 Annika [facility] Body height 2022-03-24 19:31:00 167.6 cm [facility] Body weight 2022-03-24 19:31:00 96.888 kg [facility] BMI 2022-03-24 19:31:00 34.48 kg/m2 [facility] Systolic blood 2022-03-04 19:10:00 137 mm[Hg] Univer sity of pressure [facility] Diastolic blood 2022-03-04 19:10:00 80 mm[Hg] Unive rsity of pressure [facility] Heart rate 2022-03-04 19:09:00 91 /min Universi ty [facility] Body temperature 2022-03-04 19:09:00 37.28 Annika [facility] Body height 2022-03-04 19:09:00 167.6 cm Universi ty [facility] Body weight 2022-03-04 19:09:00 96.979 kg Universi ty [facility] BMI 2022-03-04 19:09:00 34.51 kg/m2 Universi [facility] Systolic blood 2022-03-02 19:34:00 142 mm[Hg] [facility] Diastolic blood 2022-03-02 19:34:00 96 mm[Hg] [facility] 2022-03-02 19:33:00 71 /min [facility] Body temperature 2022-03-02 19:33:00 37.06 Annika [facility] Respiratory rate 2022-03-02 19:33:00 19 /min [facility] Body height 2022-03-02 19:33:00 167.6 cm [facility] Body weight 2022-03-02 19:33:00 99.791 kg [facility] BMI 2022-03-02 19:33:00 35.51 kg/m2 [facility] Procedures Procedure Date / Time Performed Performing Clinician Sourc e COMP. METABOLIC PANEL 2022-03-02 20:12:00 Stella Wheeler [facility] ([id number]) [facility] Encounters Start End Encounter Admission Attending Care Care Encounter Source Date/Time Date/Time Type Type Clinicians Facility Department ID 2021-09-20 Outpatient X [facility]ADE [id number] Univers 19:19:16 ity [facility] 2021-06-01 Outpatient P [facility]ADE [id number] Univers 14:01:23 ity [facility] 2021-06-01 Outpatient P [facility] WADE [id number] Univers 13:56:21 ity [facility] 2022-09-28 2022-09-28 Outpatient R STELLA WHEELER WYDENEEN [facility] [id number] Univers 09:30:00 09:30:00 ity [facility] 2022-03-24 2022-03-24 Outpatient R STELLA WHEELER [facility] [id number] Univers 14:15:00 15:03:40 ity [facility] 2022-03-24 2022-03-24 Routine Stella Wheeler WYDENEEN [id number] Univers 14:15:00 15:03:40 Cam [place] [id number] ity of [place].2.[place].2.686 [place] [id number] [facility] [address] [facility] 2022-03-04 2022-03-04 Routine Liam [facility] [id number] Univers 14:00:00 14:15:00 Cam [place] [id number] ity of [place] 4.[place].7.2.686 [place] PROF[place] [id number] [address] 2022-03-04 2022-03-04 Outpatient R [facility] [id number] Univers 14:00:00 14:00:00 ity of [facility] 2022-03-02 2022-03-02 Hammer Repairer 2, Adc Lab [facility] [id number] Univers 14:45:00 15:00:00 Visit Stella WheelerTON [id number] ity of [place] 4.2.7.2.686 [place] PROF[place] [id number] [address] 2022-03-02 2022-03-02 Outpatient R STELLA WHEELER [facility] [id number] Univers 13:45:00 14:57:40 ity of [facility] 2022-03-02 2022-03-02 Routine Liam [facility] [id number] Univers 13:45:00 14:57:40 Cam [place] [id number] ity of Visit [place] 4.2.7.2.686 [place] PROFESS[place] [id number] [address] 2022-03-02 2022-03-02 Outpatient R LIAM STELLA [facility] [id number] Univers 14:00:00 14:00:00 ity of [facility] 2022-02-24 2022-02-26 [facility] [id number] Univers 13:41:00 15:00:00 MEAGAN ity of [facility] 2022-02-24 2022-02-26 [facility] Stella Wheeler [facility] [id number] Univers 13:41:00 15:00:00 Encounter Sanjay, Meagan Muñoz DELL [id number] ity of [facility] 4.2.7.2.686 [facility] [id number] [address] 2022-02-26 2022-02-26 Outpatient R STELLA WHEELER [facility] [id number] Univers 13:00:00 13:00:00 ity [facility] 2022-02-25 2022-02-25 [facility] [id number] [id number] Univers 01:43:00 07:18:00 Event Frank Bates DELL [id number] ity of [place] 4.2.7.2.686 [facility] [id number] [address] 2022-02-24 2022-02-24 Anest[facility] [id number] Univers 21:59:05 21:59:05 Event Frank Bates DELL [id number] ity of [facility] 4.2.7.2.686 [facility] [id number] [address] 2022-02-24 2022-02-24 Hammer Repairer Ultrasound, [facility] 1.2 .840.114 [id number] Univers 08:30:00 09:00:00 Visit Ortega Sommer 350.1 .13.10 ity of [facility] 4.2.7.2.686 [facility] PROFESSIO [id number] Ok dical [facility] 134 Branch [facility] 2022-02-24 2022-02-24 Outpatient P HARRISON [facility] [id number] Univers 08:30:00 08:30:00 OSEI it y of Paulo VIVAS [facility] 2022-02-24 2022-02-24 Orders Doctor ULLOA 1.2.840.114 [id number] Univers 00:00:00 00:00:00 Only Unassigned, BRIANNA 350.1.13.[address] [facility] 4.2.7.2.686 Ralf as [id number] [facility] 009 [place] 2022-02-19 2022-02-19 Outpatient R STELLA WHEELER [facility] [id number] Univers 13:00:00 14:16:03 ity of [facility] 2022-02-19 2022-02-19 Routine Stella Wheeler [facility] [id number] Univers 13:00:00 14:16:03 Cam [place] 350.1.13.10 ity of Visit [place] 4.2.7.2.[place] PROF[place] [id number] Ok dical NAL [address] [place] [address] 2022-02-13 2022-02-13 Routine Khushboo Mcgovern [facility] 1.2.840.114 [id number] Univers 16:00:00 16:00:00 [place] 350.1.13.10 ity of Visit [place] 4.2.7.2.686 [place] [id number] Ok dicor NAL [address] [place] [address] 2022-02-13 2022-02-13 Outpatient X STELAL WHEELER [facility] [id number] Univers 11:27:00 14:20:00 ity of [facility] 2022-02-13 2022-02-13 Emergency AmyJm Lorenza [facility] 1.2.840. [id number] Univers 11:27:00 14:20:00 Khushboo Mcgovern 350.1.13.10 ity of Stella Wheeler [place] 4.2.7.2.686 [facility] [id number] [facility] 083 [place] 2022-02-13 2022-02-13 Outpatient R KHUSHBOO MCGOVERN [facility] [id number] Univers 16:00:00 11:06:42 ity of [facility] 2022-02-13 2022-02-13 Telephone Stella Wheeler [facility] 1.2.840.114 [id number] Univers 00:00:00 00:00:00 Cam [place] 350.1.13.10 i ty of [place] 4.2.7.2.[place] [id number] Ok dical NAL [address] [facility] 2022-02-13 2022-02-13 Orders Doctor ULLOA 1.2.840.114 [id number] Univers 00:00:00 00:00:00 Only Unassigned, BRIANNA 350.1.13.10 ity of [place] [facility] 4.2.7.2.686 Ralf as [id number] [address] 2022-02-12 2022-02-12 Outpatient R LIAM STELLA [facility] [id number] Univers 08:45:00 09:28:41 ity of [facility] 2022-02-12 2022-02-12 Routine Liam [facility] [id number] Univers 08:45:00 09:28:41 Duncan CARLITOSMIKE 350.1.13.10 ity of Visit [place] 4.2.7.2.686 [place] [id number] Ok dical NAL [address] [place] [address] 2022-02-12 2022-02-12 Outpatient R LIAM STELLA [facility] [id number] Univers 08:45:00 08:45:00 ity of [facility] 2022-02-05 2022-02-05 Hammer Repairer 2, Adc Lab [facility] 1.2.840.114 [id number] Univers 10:00:00 10:15:00 Visit Angela Escoto 350.1.13.10 ity of [place] 4.2.7.2.[place] [id number] Ok dical [facility] [address] [facility] 2022-02-05 2022-02-05 Outpatient R JEVON [facility] [id number] Univers 08:45:00 09:32:56 ANGELA ity [facility] 2022-02-05 2022-02-05 Routine Jevon [facility] [id number] Univers 08:45:00 09:32:56 Angela SHARPE 350.1.13.10 ity of Visit [place] 4.2.7.2.686 [place] [id number] Ok dical NAL [address] [place] [address] 2022-02-05 2022-02-05 Orders Doctor LAILA 1.2.840.114 [id number] Univers 00:00:00 00:00:00 Only Unassigned, BRIANNA 350.1.13.10 ity of [place] [facility] 4.2.7.2.686 Ralf as [id number] [address] 2022-01-30 2022-01-30 Outpatient R SANJAY, [facility] [id number] Univers 08:15:00 08:59:51 MEAGAN ity of [facility] 2022-01-30 2022-01-30 Routine [facility] 1.2.840.114 [id number] Univers 08:15:00 08:59:51 Meagan SHAR[place] 350.1.13.10 ity of Visit [place] 4.2.7.2.686 [place] [id number] Ok dic[address] 2022-01-28 2022-01-28 Telephone Stella Wheeler [facility] 1.2.840.114 [id number] Univers 00:00:00 00:00:00 Duncan SHARPE 350.1.13.10 i ty of [place] 4.2.7.2.686 [place] [id number] Ok dic[address] 2022-01-27 2022-01-27 Hammer Repairer Ultrasound, [facility] 1.2 .840.114 [id number] Univers 08:30:00 09:00:00 Visit Ortega Sommer 350.1 .13.10 ity of [place] 4.2.7.2.686 [place] [id number] Ok dical [address] 2022-01-27 2022-01-27 Outpatient P HARRISON [facility] [id number] Univers 08:30:00 08:30:00 OSEI it y of ORTEGA Bates [facility] 2022-01-22 2022-01-22 Outpatient R STELLA WHEELER [facility] [id number] Univers 08:45:00 09:35:54 ity of [facility] 2022-01-22 2022-01-22 Routine Liam [facility] [id number] Univers 08:45:00 09:35:54 Cam [place] 350.1.13.10 ity of Visit [place] 4.2.7.2.686 [place] [id number] Ok dical [address] 2022-01-13 2022-01-13 Outpatient R JEVON [facility] [id number] Univers 08:45:00 08:45:00 ANGELA ity [facility] 2022-01-09 2022-01-09 Outpatient R KHUSHBOO MCGOVERN [facility] [id number] Univers 15:30:00 15:38:41 ity of [facility] 2022-01-09 2022-01-09 Routine Froilan Khushboo [facility] 1.2.840.114 [id number] Univers 15:30:00 15:38:41 [place] 350.1.13.10 ity of Visit [place] 4.2.7.2.686 [place] [id number] [address] 2022-01-08 2022-01-08 Outpatient R JEVON [facility] [id number] Univers 08:15:00 08:15:00 [facility] 2022-01-06 2022-01-06 Outpatient P [facility] [id number] Univers 14:15:00 14:15:00 ity of [facility] 2021-12-25 2021-12-25 Outpatient R STELLA WHEELER [facility] [id number] Univers 08:15:00 08:50:32 ity of [facility] 2021-12-25 2021-12-25 Routine Stella Wheeler [facility] [id number] Univers 08:15:00 08:50:32 Cam [place] 350.1.13.10 ity of [place] [phone] [place] dic[address] 2021-12-23 2021-12-23 Hammer Repairer Ultrasound, [facility] 1.2 .840.114 [id number] Univers 14:00:00 14:30:00 Visit Ortega Sommer DELL 350.1 .13.10 it[facility] [place] [phone] Ok dical NAL [address] [place] [address] 2021-12-23 2021-12-23 Outpatient P HARRISON [facility] [id number] Univers 14:00:00 14:00:00 NANCYGIL it y of [place] Bates [facility] 2021-12-12 2021-12-12 Outpatient R STELLA WHEELER [facility] [id number] Univers 08:00:00 08:16:05 ity of [facility] 2021-12-12 2021-12-12 Nurse Nurse, [facility] 1.2.840.114 [id number] Univers 08:00:00 08:16:05 Visit Stella Wheeler Duncan SHARPE 350.1.13.10 ity of [place] [phone] Ok dical NAL [address] [place] [address] 2021-12-09 2021-12-09 [facility] 1.2.840.114 [id number] Univers 00:00:00 00:00:00 Duncan SHARPE 350.1.13.10 i ty of [facility] [place] [phone] Ok dical NAL [address] [place] [address] 2021-12-04 2021-12-04 Outpatient R MOHAMUD [facility] [id number] Univers 11:15:00 11:48:04 ity of [facility] 2021-12-04 2021-12-04 Routine Angela Escoto [facility] 1.2.840.11 [id number] Univers 11:15:00 11:48:04 Stella Wheeler DELL 350.1.13.10 ity of [place] [phone] Ok dical NAL [address] [place] [address] 2021-12-04 2021-12-04 Hammer Repairer 2, [facility] Lab [facility] 1.2.840.114 [id number] Univers 09:00:00 09:15:00 Visit Stella Wheeler 350.1.13.10 ity of [place] [id number] [facility] 2021-12-04 2021-12-04 Telephone Stella Wheeler [facility] 1.2.840.114 [id number] Univers 00:00:00 00:00:00 Cam [place] 350.1.13.10 i ty of [place] [phone] [facility] [address] [facility] 2021-11-28 2021-11-28 Telephone Stella Wheeler [facility] 1.2.840.114 [id number] Univers 00:00:00 00:00:00 Cam [place] 350.1.13.10 i ty of [place] [phone] [address] 2021-11-18 2021-11-18 Hammer Repairer Ultrasound, [facility] 1.2 .840.114 [id number] Univers 10:30:00 11:15:00 Visit Ortega Sommer DELL 350.1 .13.10 ity of [place] [phone] [address] 2021-11-18 2021-11-18 Outpatient P [facility] [id number] Univers 10:30:00 10:30:00 OSEI it y of [place] [facility] 2021-11-11 2021-11-11 Refill Liam Stella [facility] 1.2.299.759 [id number] Univers 00:00:00 00:00:00 Duncan [place] 350.1.13.10 i ty of [place] [phone] [address] 2021-11-05 2021-11-05 Outpatient George ESCOTO [facility] [id number] Univers 10:30:00 10:46:08 ANGELA ity [facility] 2021-11-05 2021-11-05 Routine Jevon [facility] 1.2.388.037 [id number] Univers 10:30:00 10:46:08 Angela SHARPE 350.1.13.10 ity of [place] [phone] Ok dical NAL [address] [place] [address] 2021-10-21 2021-10-21 Hammer Repairer Ultrasound, [facility] 1.2 .840.114 [id number] Univers 09:00:00 10:04:17 Visit Ortega SommerMIKE 350.1 .13.10 ity of [place] [id number] Ok dical NAL [address] [place] [address] 2021-10-21 2021-10-21 Outpatient P [facility] [id number] Univers 09:00:00 09:00:00 ity of [facility] 2021-10-21 2021-10-21 Outpatient P [facility] [id number] Univers 09:00:00 09:00:00 OSEI it y of [place] [facility] 2021-10-08 2021-10-08 Outpatient R LIAM STELLA [facility] [id number] Univers 11:15:00 12:05:15 ity of [facility] 2021-10-08 2021-10-08 Routine Liam [facility] 1.2.345.235 [id number] Univers 11:15:00 12:05:15 Duncan SHARPE 350.1.13.10 ity of [place] [id number] Ok dical NAL [address] [place] [address] 2021-10-08 2021-10-08 Outpatient R LIAM STELLA [facility] [id number] Univers 11:15:00 11:15:00 ity of [facility] 2021-09-25 2021-09-25 Routine Liam [facility] 1.2.767.117 [id number] Univers 14:45:00 15:00:00 Cam DELL 350.1.13.10 ity of [place] [phone] Ok dical NAL [address] [facility] 2021-09-25 2021-09-25 Outpatient R STELLA WHEELER [facility] [id number] Univers 14:45:00 14:45:00 ity [facility] 2021 2021-09-20 Outpatient X ADUM, [facility] WADE [id number] Univers 16:42:00 17:55:00 MEAGAN ity [facility] 2021 2021-09-20 [facility] 1.2.841.100 [id number] Univers 16:42:00 17:55:00 Meagan SHARPE 350.1.13.10 ity of [place] [phone] [address] 2021 2021 Telephone Stella Wheeler [facility] 1.2.840.114 [id number] Univers 00:00:00 00:00:00 Duncan SHARPE 350.1.13.10 i ty of [place] 4[place].2.[place] [phone] Ok dical NAL [address] [facility] 2021 2021 Telephone WheelerStella [facility] 1.2.840.114 [id number] Univers 00:00:00 00:00:00 Cam [place] 350.1.13.10 i ty of [place].2.[place] [id number] Ok dical NAL [address] [facility] 2021-09-10 2021-09-10 Hammer Repairer Oswaldo, Elia Lab Main [facility] 1.2.8 40.114 [id number] Univers 11:00:00 11:15:00 Visit Angela Escoto 350.1.13.10 ity of [place] 4[place].2.[place] [phone] Ok dical NAL [address] [facility] 2021-09-10 2021-09-10 Outpatient R JEVON [facility] [id number] Univers 10:15:00 10:15:00 ANGELA azul [facility] 2021-09-10 2021-09-10 Outpatient R JEVON [facility] [id number] Univers 10:00:00 10:11:08 ANGELA azul [facility] 2021-09-10 2021-09-10 Routine Jevon [facility] 1.2.433.826 [id number] Univers 10:00:00 10:11:08 Angela SHARPE 350.1.13.10 ity of [place] [phone] [place] dic[address] 2021-09-10 2021-09-10 Orders Doctor LAILA 1.2.840.114 [id number] Univers 00:00:00 00:00:00 Only Unassigned, BRIANNA 350.1.13.10 ity of [place] [facility] 4.2.7.2.686 Ralf as [phone] [address] 2021-09-02 2021-09-02 Telephone Stella Wheeler [facility] 1.2.840.114 [id number] Univers 00:00:00 00:00:00 Cam DELL 350.1.13.10 i ty of [place] 4[place] [id number] Ok dic[address] 2021-09-01 2021-09-01 Outpatient R [facility]EVON [facility] [id number] Univers 11:00:00 11:00:00 ANGELA latha [facility] 2021-08-22 2021-08-22 Outpatient R SANJAY [facility] [id number] Univers 09:00:00 09:00:00 MEAGAN latha [facility] 2021-08-04 2021-08-04 Outpatient R STELLA WHEELER [facility] [id number] Univers 08:30:00 09:09:40 ity of [facility] 2021-08-04 2021-08-04 Initial Stella Wheeler [facility] 1.2.126.846 [id number] Univers 08:30:00 09:09:40 Cam DELL 350.1.13.10 ity of [place] 4[place] [phone] Ok dical NAL [address] [facility] 2021-07-28 2021-07-28 Outpatient R JEVON [facility] [id number] Univers 11:15:00 11:15:00 ANGELA latha [facility] 2021-07-28 2021-07-28 Hammer Repairer 2, Adc Lab [facility] 1.2.840.114 [id number] Univers 11:15:00 11:15:00 Visit Angela Escoto 350.1.13.10 ity of [place] [phone] Ok dical NAL [address] [facility] 2021-07-28 2021-07-28 Outpatient R JEVON [facility] [id number] Univers 09:45:00 10:18:04 ANGELA rebecca [facility] 2021-07-28 2021-07-28 Office Jevon [facility] 1.2.083.149 [id number] Univers 09:45:00 10:18:04 Visit Angela SHARPE 350.1.13.10 i ty [facility] 4.2.7.2.[place] [phone] Ok dical NAL [address] [facility] 2021-07-28 2021-07-28 Orders Doctor LAILA 1.2.840.114 [id number] Univers 00:00:00 00:00:00 Only Unassigned, BRIANNA 350.1.13.10 ity of [place] [facility] 4.2.7.2.686 Ralf as [phone] [address] 2021-06-30 2021-06-30 Outpatient George ESCOTO [facility] [id number] Univers 10:30:00 10:30:00 ANGELA azul [facility] 2021-05-07 2021-05-07 Outpatient R JEVON [facility] [id number] Univers 11:45:00 11:45:00 ANGELA azul [facility] 2021-05-07 2021-05-07 Telemedici Jevon [facility] 1.2.840.114 [id number] Univers 11:04:25 11:19:25 ne Visit Angela Sharpe 350.1.13.10 ity of [place].2.[place] [phone] [address] 2021-04-09 2021-04-09 Outpatient R JEVON [facility] [id number] Univers 11:45:00 11:45:00 ANGELA azul [facility] 2021-04-09 2021-04-09 [facility] 1.2.840.114 [id number] [facility] 11:24:27 11:39:27 ne Visit Angela Sharpe 350.1.13.10 ity of [place] [phone] [address] 2021-03-12 2021-03-12 [facility] 1.2.840.114 [id number] [facility] 10:20:35 12:11:47 ne Visit Angela Sharpe 350.1.13.10 ity of [place] 4[place].2.[place] [id number] [address] 2021-03-12 2021-03-12 Outpatient R [facility]EVON [facility] [id number] Univers 11:45:00 11:45:00 ANGELA azul [facility] 2021-01-28 2021-01-28 Outpatient R [facility] [id number] Univers 11:45:00 11:45:00 ANGELA azul [facility] 2021-01-27 2021-01-27 Outpatient R [facility]ON [facility] [id number] Univers 14:30:00 14:30:00 ANGELA azul [facility] 2020-12-26 2020-12-26 Routine Jevon [facility] 1.2.978.205 [id number] Univers 10:34:29 10:49:29 Angela Sharpe 350.1.13.10 ity of [place]2.[place] [phone] [address] 2020-12-26 2020-12-26 Outpatient R [facility]ON [facility] [id number] Univers 10:45:00 10:45:00 [facility] 2020-12-24 2020-12-24 Outpatient R JEVON [facility] [id number] Univers 08:00:00 08:00:00 ANGELA itrebecca [facility] 2020-11-26 2020-11-27 Hospital Stella Wheeler [facility] 1.2.840.114 [id number] Univers 04:00:00 16:00:00 Encounter Duncan Sharpe 350.1.13.10 ity of [place] 4.2.7.2.686 [place] [facility] [phone] [facility] [address] [place] 2020-11-26 2020-11-26 [facility] [id number] Univers 11:30:00 11:30:00 [facility] 2020-11-26 2020-11-26 Orders Doctor LAILA 1.2.840.114 [id number] Univers 00:00:00 00:00:00 Only Unassigned, BRIANNA 350.1.13.10 ity of [place] [facility] 4.2.7.2.686 Ralf as [phone] [facility] [address] [place] 2020-11-25 2020-11-25 Laboratory Only, [facility] Test [facility] 1.2.840. 114 [id number] Univers 11:19:27 11:34:27 Only Stella Wheeler 350.1.13.10 ity of [place] 4[place].2.686 [place] [phone] [facility] [address] [place] 2020-11-25 2020-11-25 Routine Room, [facility] Nst [facility] 1.2.840.1 14 [id number] Univers 09:55:48 10:55:14 Stella Wheeler 350.1.13.10 ity of [place].7.2.686 [place] [phone] Ok dical nal 134 [facility] 2020-11-25 2020-11-25 Outpatient R [facility] [id number] Univers 10:00:00 10:00:00 ity of [facility] 2020-11-25 2020-11-25 Orders Doctor LAILA 1.2.840.114 [id number] Univers 00:00:00 00:00:00 Only Unassigned, BRIANNA 350.1.13.10 ity of [place] [facility] 4.2.7.2.686 Ralf as [phone] [facility] [address] [place] 2020-11-21 2020-11-21 Routine Room, [facility] 1.2.840.1 14 [id number] Univers 10:44:50 11:34:35 Stella Wheeler Duncan Mccoy 350.1.13.10 ity of [place].2.[place] [phone] Ok dical nal 134 [facility] 2020-11-21 2020-11-21 Outpatient R [facility] [id number] Univers 11:00:00 11:00:00 ity of [facility] 2020-11-18 2020-11-19 Hospital Mohamud Wheeleren [facility] 1.2.840.114 [id number] Univers 18:24:00 09:10:00 Encounter Cam Mccoy 350.1.13.10 ity of [place]2.7.2.[place] [phone] [facility] [address] [place] 2020-11-18 2020-11-18 Routine Stella Wheeler [facility] 1.2.853.145 [id number] Univers 14:47:49 15:49:02 Cam Mccoy 350.1.13.10 ity of [place] 4[place]2.7.2.686 [place] [phone] Ok dical nal 134 [facility] 2020-11-18 2020-11-18 Outpatient R LIAM STELLA [facility] [id number] Univers 14:45:00 14:45:00 ity of [facility] 2020-11-18 2020-11-18 Telephone Stella Wheeler [facility] 1.2.840.114 [id number] Univers 00:00:00 00:00:00 Cam Mccoy 350.1.13.10 i ty of [place] 4[place]2.7.2.[place] [phone] Ok dical nal 134 [facility] 2020-11-11 2020-11-11 Hammer Repairer 2, Adc [facility] 1.2.840.114 [id number] Univers 13:16:08 13:31:08 Visit Angela Escoto 350.1.13.10 ity of [place] 4[place]2.7.2.[place] [phone] Ok dical nal [address] [facility] 2020-11-11 2020-11-11 Routine Jevon [facility] 1.2.318.772 [id number] Univers 11:24:40 12:22:36 Angela Sharpe 350.1.13.10 ity of [place] 4.2.7.2.686 [place] [phone] Ok dical nal 134 [facility] 2020-11-11 2020-11-11 Outpatient R JEVON [facility] [id number] Univers 11:30:00 11:30:00 ANGELA ity [facility] 2020-11-11 2020-11-11 Orders Doctor LAILA 1.2.840.114 [id number] Univers 00:00:00 00:00:00 Only Unassigned, BRIANNA 350.1.13.10 ity of [place] [facility] 4.2.7.2.686 Ralf as [phone] [address] 2020-10-31 2020-10-31 Outpatient R JEVON [facility] [id number] Univers 11:15:00 11:15:00 ANGELA itrebecca [facility] 2020-10-17 2020-10-17 Routine Stella Wheeler [facility] 1.2.380.402 [id number] Univers 10:57:52 11:35:04 Duncan Sharpe 350.1.13.10 ity of [place] 4.2.7.2.686 [place] [phone] Ok dical nal 134 [facility] 2020-10-17 2020-10-17 Outpatient R STELLA WHEELER [facility] [id number] Univers 11:15:00 11:15:00 ity of [facility] 2020-10-10 2020-10-10 Outpatient R STELLA WHEELER [facility] [id number] Univers 13:45:00 13:45:00 ity of [facility] 2020-09-25 2020-09-25 Routine Angela Escoto [facility] 1.2.840.11 [id number] Univers 13:55:51 14:10:51 Stella Wheeler 350.1.13.10 ity of [place] 4.2.7.2.686 [place] [phone] Ok dical nal 134 [facility] 2020-09-25 2020-09-25 Outpatient R STELLA WHEELER [facility] [id number] Univers 14:00:00 14:00:00 ity of [facility] 2020-09-13 2020-09-13 Nurse Nurse, [facility] 1.2.840.114 [id number] Univers 07:57:48 08:45:54 Visit Stella Wheeler 350.1.13.10 ity of [place] 4.2.7.2.686 [place] [phone] Ok dical nal 134 [facility] 2020-09-13 2020-09-13 Outpatient R [facility] [id number] Univers 08:00:00 08:00:00 ity of [facility] 2020-09-12 2020-09-12 Hammer Repairer 2, [facility] Lab [facility] 1.2.840.114 [id number] Univers 10:09:26 10:24:26 Visit Stella Wheeler 350.1.13.10 ity of [place] 4.2.7.2.686 [place] [phone] Ok dical nal [address] [facility] 2020-09-12 2020-09-12 Outpatient R [facility] [id number] Univers 10:15:00 10:15:00 ity of [facility] 2020-09-11 2020-09-11 Routine Jevon [facility] 1.2.477.251 [id number] Univers 15:56:47 16:11:47 Angela [place] 350.1.13.10 ity of [place] 4.2.7.2.686 [place] [phone] [address] 2020-09-11 2020-09-11 Outpatient R JEVON [facility] [id number] Univers 16:00:00 16:00:00 ANGELA ity [facility] 2020-08-14 2020-08-14 Hammer Repairer Ultrasound, [facility] 1.2 .840.114 [id number] Univers 12:53:32 13:25:02 Visit Nano Stroud [employer] SERV[employer] REPRESENTATIVE 350.1.13.10 ity of [facility] 4.2.7.2.686 Ralf as MATERNAL [phone] [facility] CHILD [address] [place] [address] 2020-08-14 2020-08-14 Outpatient P [facility] [id number] Univers 13:00:00 13:00:00 ity [facility] 2020-07-18 2020-07-18 Routine Liam [facility] 1.2.958.704 [id number] Univers 15:50:18 16:58:13 Duncan Sharpe 350.1.13.10 ity of [place] 4.2.7.2.686 [place] [phone] [address] 2020-07-18 2020-07-18 Outpatient R [facility] [id number] Univers 15:45:00 15:45:00 ity [facility] 2020-07-17 2020-07-17 Hammer Repairer Ultrasound, [facility] 1.2 .840.114 [id number] Univers 09:04:59 10:04:59 Visit Jacqui Esposito V[employer]ER[employer] SERVICE REPRESENTATIVE 350.1.13.10 ity [facility] 4.2.7.2.686 Ralf as MATERNAL [phone] [facility] & [address] 2020-07-17 2020-07-17 Outpatient P [facility] [id number] Univers 09:30:00 09:30:00 ity [facility] 2020-07-16 2020-07-16 Outpatient R WHEELER, [facility] [id number] Univers 15:45:00 15:45:00 ity of [facility] 2020-06-18 2020-06-18 Hammer Repairer 2, [facility] 1.2.840.114 [id number] Univers 15:08:41 15:23:41 Visit Angela Escoto 350.1.13.10 ity of [place] 4.2.7.2.686 [place] [phone] Ok dical formerly [facility] [address] [facility] 2020-06-18 2020-06-18 Routine Jevon [facility] 1.2.591.195 [id number] Univers 13:51:43 14:52:35 Angela Sharpe 350.1.13.10 ity of [place] 4.2.7.2.686 [place] [phone] Ok dical formerly [facility] 134 [facility] 2020-06-18 2020-06-18 Outpatient R JEVON [facility] [id number] Univers 14:30:00 14:30:00 ANGELA ity of [facility] 2020-06-14 2020-06-14 Telephone Stella Wheeler [facility] 1.2.840.114 [id number] Univers 00:00:00 00:00:00 Duncan Sharpe 350.1.13.10 i ty of [place] 4.2.7.2.686 [place] Profess[place] [phone] Ok dic[address] 2020-06-03 2020-06-03 Outpatient R [facility] [id number] Univers 10:30:00 10:30:00 ity of [facility] 2020-06-01 2020-06-01 Outpatient R [facility] [id number] Univers 09:00:00 09:00:00 ity of [facility] 2020-05-30 2020-05-30 Outpatient R [facility] [id number] Univers 16:00:00 16:00:00 ity of [facility] 2020-05-21 2020-05-29 Initial Stella Wheeler [facility] 1.2.709.913 [id number] Univers 14:22:34 15:36:37 Duncan Sharpe 350.1.13.10 ity of [place] 4.2.7.2.686 [place] [phone] Ok dical nal 134 [facility] 2020-05-29 2020-05-29 Telephone Stella Wheeler [facility] 1.2.840.114 [id number] Univers 00:00:00 00:00:00 Cam Mccoy 350.1.13.10 i ty of [place] 4.2.7.2.686 [place] [phone] Ok dical nal 134 [facility] 2020-05-23 2020-05-23 Telephone Stella Wheeler [facility] 1.2.840.114 [id number] Univers 00:00:00 00:00:00 Cam Mccoy 350.1.13.10 i ty of [place] 4.2.7.2.686 [place] [phone] Ok dical nal 134 [facility] 2020-05-21 2020-05-21 Hammer Repairer 2, [facility] 1.2.840.114 [id number] Univers 16:02:06 16:17:06 Visit Stella Wheeler 350.1.13.10 ity of [place] 4.2.7.2.686 [place] [phone] Ok dicmilli hitchcock 353 [facility] 2020-05-21 2020-05-21 Outpatient R STELLA WHEELER [facility] [id number] [facility] 14:30:00 14:30:00 ity of [facility] 2020-05-21 2020-05-21 Orders Doctor LAILA 1.2.840.114 [id number] Univers 00:00:00 00:00:00 Only Unassigned, BRIANNA 350.1.13.10 ity of [place] [facility] 4.2.7.2.686 Ralf as [phone] [address] Results Test Description Test Time Test Comments Results Result Comments Source COMP. METABOLIC PANEL (94454) 2022-03-02 21:17:55 Test Item Value Reference Range Interpretation Comme nts NA (test code = 5789168174) 138 mmol/L 135-145 K (test code = 2820597238) 4.4 mmol/L 3.5-5 CL (test code = 4047365050) 105 mmol/L 98-108 CO2 TOTAL (test code = 0621363241) 24 mmol/L 23-31 AGAP (test code = 0811592824) 2-16 BUN (test code = 0002981623) 11 mg/dL 7-23 GLUCOSE (test code = 4049210562) 83 mg/dL 70-110 CREATININE (test code = 0.65 mg/dL 0.5-1.04 9987201295) TOTAL BILI (test code = 0.3 mg/dL 0.1-1.1 5309084306) CALCIUM (test code = 8292129910) 8.8 mg/dL 8.6-10.6 T PROTEIN (test code = 5153423896) 6.1 g/dL 6.3-8.2 L ALBUMIN (test code = 8925683148) 3.4 g/dL 3.5-5 L ALK PHOS (test code = 9746887101) 95 U/L 34-122 ALTv (test code = 1742-6) 26 U/L 5-35 AST(SGOT) (test code = 9617333120) 19 U/L 13-40 eGFR (test code = 4976561112) mL/min/1.73m2 ASA (test code = ASA) Association of Glomerular Filtration Rate (GFR) and Staging of Kidney Disease* + +-------- + ------+| GFR (mL/min/1.73 m2) ?| With Kidney Damage ?| ?Without Kidney Damage+ +-- + +| ?>90 ?| ?Stage one ?| ? Normal ?+ +------- + -------+| ?60-89 ?| ?Stage two ?| ? Decreased GFR ? + +-------- + ------+| ?30-59 ?| ?Stage three ?| ? Stage three ? + +-------- + ------+| ?15-29 ?| ?Stage four ? | ? Stage four ?+ +------- + -------+| ?<15 (or dialysis) ? ?| ?Stage five ? | ? Stage five ?+ +------- + -------+ *Each stage assumes the associated GFR level has been in effect for at least three months. ?Stages 1 to 5, with or without kidney disease, indicate chronic kidney disease. Notes: Determination of stages one and two (with eGFR >59mL/min/1.73 m2) requires estimation of kidney damage for at least three months as defined by structural or functional abnormalities of the kidney, manifested by either:Pathological abnormalities or Markers of kidney damage (including abnormalities in the composition of the blood or urine or abnormalities in imaging tests). Lab Interpretation (test code = Abnormal 61637-8) [facility] Test Item Value Reference Range Interpretation Comments GLUCOSE (test code = URGLU) 250 MG/DL NEG-100 BILIRUBN (test code = URBILI) NEGATIVE NEGATIVE KETONE (test code = URKET) NEGATIVE MG/DL NEGATIVE BLOOD (test code = URBLD) NEGATIVE UR PH (test code = URPH) 7.0 5.0-7.5 PROTEIN (test code = URPRO) NEGATIVE MG/DL NEGATIVE NITRITES (test code = URNIT) NEGATIVE NEGATIVE UROBILINGEN (test code = 0.2 EU/DL 0.2-1.0 URURO) LEUKOCYT (test code = URLEU) NEGATIVE NEGATIVE UA COLOR (test code = UA YELLOW YELLOW COLOR) CLARITY (test code = CLARITY) CLEAR CLEAR SP GRAV (test code = URSPGRAV) 1.002 1.000-1.025 UAMICRO (test code = UAMICRO) NO"
[2022-12-13 02:24] LABS: Absolute Lymphocytes (CBC) 2.7 K/uL (0.7-4.9); Hematocrit 43.8 % (36.0-45.0); Lymphocytes % 31.2 % (15.3-44.8); MCV 87.9 fL (80-100); MPV 10.2 fL (7.6-11.3); RBC Red Blood Cell Count 4.98 M/uL (3.86-4.86)
[2022-12-13 02:27] LABS: Specific Gravity 1.019 (1.005-1.030)
[2022-12-13] MEDS ORDERED: MAGNES/ALUMIN/SIMET 30ML UCUP ONE (02:27)
[2022-12-13] MEDS ORDERED: ONDANSETRON 4 MG/2 ML VIAL ONE ×2 (02:27→13:33)
[2022-12-13] MEDS ORDERED: LIDOCAINE VISCOUS 2% SOLN 15 ML UDC ONE (02:27)
[2022-12-13] MEDS ORDERED: FAMOTIDINE 20 MG/2 ML VIAL IV ONE (02:27)
[2022-12-13 02:30] LABS: Specific Gravity 1.019 (1.005-1.030); Urine Bacteria <20 /HPF (<20); Urine Bilirubin NEGATIVE (Negative); Urine Blood Negative (Negative); Urine Clarity Clear (Clear); Urine Color Yellow (Yellow); Urine Glucose NEGATIVE (Negative); Urine Mucus 1+ /HPF (None Seen); Urine Protein TRACE (Negative); Urine RBC <5 /HPF (None Seen); Urine Urobilinogen Normal (Normal); Urine pH 5.5 (5.0-7.0)
[2022-12-13 02:42] LABS: Albumin 3.8 g/dL (3.4-5.0); Bilirubin Total 0.4 mg/dL (0.2-1.0); Potassium 3.6 mEq/L (3.5-5.1); Protein, Total 7.2 g/dL (6.4-8.2)
[2022-12-13] MEDS ORDERED: MORPHINE 4 MG/ML SYR ONE (03:32)
[2022-12-13] MEDS ORDERED: ACETAMINOPHEN 500 MG TAB PO PRN (03:38)
--- NOTE | 2022-12-13 03:45 | ER ---
Nurse's Notes [facility] Name: Verenice Ovalle Age: 32 yrs Sex: Female : 1990 Arrival Date: 12/13/2022 Time: 01:46 Bed 14 Private MD: Diagnosis: Other cholelithiasis without obstruction Presentation: 12/13 01:57 Chief complaint: Patient states: epigastric pain nausea began at 6 pm. Coronavirus kl screen: Vaccine status: Patient reports being unvaccinated. Ebola Screen: Patient negative for fever greater than or equal to 101.5 degrees Fahrenheit, and additional compatible Ebola Virus Disease symptoms. Initial Sepsis Screen: Does the patient meet any 2 criteria? No. Patient's initial sepsis screen is negative. Does the patient have a suspected source of infection? No. Patient's initial sepsis screen is negative. Risk Assessment: Do you want to hurt yourself or someone else? Patient reports no desire to harm self or others. 01:57 Method Of Arrival: Ambulatory 01:57 Acuity: YUDI 3 kl 04:31 Onset of symptoms was December 12, 2022. lg3 Triage Assessment: 02:01 General: Appears uncomfortable, Behavior is calm, cooperative. Pain: Complains of pain kl in epigastric area Pain radiates to posterior chest Pain currently is 9 out of 10 on a pain scale. GI: Reports nausea. CHILD WELFARE CONSULTANT: 02:01 LMP N/A - Irregular menses kl Historical: - Allergies: 02:00 PENICILLINS; kl - Home Meds: 02:00 None [Active]; kl - PMHx: 02:00 None; kl - Immunization history:: Adult Immunizations not up to date. - Social history:: Smoking status: Reported history of juuling and/or vaping. Screenin:29 [facility] ED Fall Risk Assessment (Adult) History of falling in the last 3 months, lg3 including since admission No falls in past 3 months (0 pts). Abuse screen: Denies threats or abuse. Denies injuries from another. Nutritional screening: No deficits noted. Tuberculosis screening: No symptoms or risk factors identified. Assessment: 02:29 General: Appears in no apparent distress. uncomfortable, Behavior is calm, cooperative. lg3 Pain: Complains of pain in epigastric area Pain radiates to right upper quadrant and back. Neuro: No deficits noted. Joseph Agitation-Sedation Scale (RASS): 0 - Alert and Calm Level of Consciousness is awake, alert, obeys commands, Oriented to person, place, time, situation. Cardiovascular: No deficits noted. Denies chest pain, shortness of breath, Capillary refill < 3 seconds Clubbing of nail beds is absent JVD is absent Patient's skin is warm and dry. Respiratory: No deficits noted. Airway is patent Respiratory effort is even, unlabored, Respiratory pattern is regular, symmetrical. GI: Abdomen is round non-distended, Pt is actively vomiting undigested food, Bowel sounds present X 4 quads. Abd is soft X 4 quads Abdomen is tender to palpation in umbilical area and right upper quadrant. : No deficits noted. No signs and/or symptoms were reported regarding the genitourinary system. EENT: No deficits noted. No signs and/or symptoms were reported regarding the EENT system. Derm: No deficits noted. No signs and/or symptoms reported regarding the dermatologic system. Skin is intact, is healthy with good turgor, Skin is dry, Skin is normal, Skin temperature is warm. Musculoskeletal: No deficits noted. No signs and/or symptoms reported regarding the musculoskeletal system. Circulation, motion, and sensation intact. Range of motion: intact in all extremities. 03:28 Reassessment: Patient appears in no apparent distress at this time. No changes from lg3 previously documented assessment. Patient and/or family updated on plan of care and expected duration. Pain level reassessed. Patient is alert, oriented x 3, equal unlabored respirations, skin warm/dry/pink. Patient states symptoms have not improved. Pain: Complains of pain in epigastric area Pain radiates to right upper quadrant and back Also complains of nausea, vomiting. Vital Signs: 01:57 BP 156 / 116; Pulse 58; Resp 19; Temp 97.3(TE); Pulse Ox 100% ; Weight 88.9 kg (R); kl Height 5 ft. 6 in. ; Pain 9/10; 03:31 BP 141 / 96; Pulse 62; Resp 18 S; Pulse Ox 100% on R/A; lg3 01:57 Body Mass Index 31.63 (88.90 kg, 167.64 cm) 01:57 Pain Scale: Adult ED Course: 01:48 Patient arrived in ED. jj6 01:49 Bashir, Madhavi, MD is Attending Physician. sd2 02:00 Triage completed. kl 02:14 Soraida Rahman, RAAD is Primary Nurse. lg3 02:14 Inserted saline lock: 22 gauge in right antecubital area, using aseptic technique. lg3 Blood collected. 02:29 Placed in gown. Bed in low position. Call light in reach. Side rails up X 1. Client lg3 placed on continuous cardiac and pulse oximetry monitoring. NIBP monitoring applied. Door closed. Noise minimized. Warm blanket given. Family accompanied patient. 03:17 US Abdomen Limited In Process Unspecified. EDMS 03:44 Jadon Valverde MD is Hospitalizing Provider. sd2 04:30 No provider procedures requiring assistance completed. Patient admitted, IV remains in lg3 place. intact, No redness/swelling at site. Administered Medications: 02:32 CANCELLED (Other Intervention Used): Famotidine PO 20 mg PO once lg3 02:32 Drug: GI Cocktail without - (Maalox PO Suspension 30 ml, Lidocaine Mucous lg3 Membrane Liquid 2 % 15 ml) Route: PO; 04:32 Follow up: Response: No adverse reaction; No change in condition lg3 02:32 Drug: Ondansetron IVP 4 mg Route: IVP; Site: right antecubital; lg3 04:32 Follow up: Response: No adverse reaction; Marked relief of symptoms lg3 02:32 Drug: Famotidine IVP 20 mg Route: IVP; Site: right antecubital; lg3 04:32 Follow up: Response: No adverse reaction; No change in condition lg3 03:29 Drug: morphine IVP or IV 4 mg Route: IVP; Infused Over: 4 mins; Site: right antecubital;lg3 04:32 Follow up: Response: No adverse reaction; Marked relief of symptoms lg3 Medication: 04:31 VIS not applicable for this client. lg3 Outcome: 03:45 Decision to Hospitalize by Provider. sd2 04:30 Admitted to Med/surg accompanied by tech, via wheelchair, room 412, Report called to 3 Teddy 04:30 Condition: stable 04:30 Instructed on the need for admit, Demonstrated understanding of instructions. 04:41 Patient left the ED. lg3 Signatures: Dispatcher [employer] EDHeidi Kent, RN RN kl Soraida Rahman RN RN lg3 Jasmyn Rivera jj6 Madhavi Camejo MD MD sd2
--- NOTE | 2022-12-13 03:45 | EDPHYS ---
Physician Documentation [facility] Name: Verenice Ovalle Age: 32 yrs Sex: Female : 1990 Arrival Date: 12/13/2022 Time: 01:46 Bed 14 Private MD: ED Physician Madhavi Camejo HPI: 12/13 02:11 This 32 yrs old Female presents to ER via Ambulatory with complaints of Nausea, sd2 Abdominal Pain. 02:11 32-year-old female presents with chief complaint of abdominal pain in the epigastric sd2 area and nausea. She reports it started around 6 PM last night but was not bad and she was able to go to work for 4 hours. She then had tacos from [id number] and her pain worsened thereafter. She denies any associated vomiting, diarrhea, constipation or urinary symptoms. No known fevers. The patient reports when she belches that she takes stomach acid as well. She has no prior history of acid reflux in the past. Denies any chance of . She did take Tylenol at home with no relief. . 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 - Social history:: Smoking status: Reported history of juuling and/or vaping. ROS: 02:11 Constitutional: Negative for fever, chills, and weight loss, Eyes: Negative for injury, sd2 pain, redness, and discharge, Cardiovascular: Negative for chest pain, palpitations, and edema, Respiratory: Negative for shortness of breath, cough, wheezing. 02:11 : Negative for dysuria, urinary frequency, hesitancy, urgency and hematuria. MS/Extremity: Negative for injury and deformity, Skin: Negative for injury, rash, and discoloration, Neuro: Negative for headache, numbness and tingling. 02:11 Abdomen/GI: Positive for abdominal pain, nausea, Negative for vomiting, diarrhea, constipation. Exam: 02:11 Constitutional: This is a well developed, well nourished patient who is awake, alert, sd2 and in no acute distress. Head/Face: Normocephalic, atraumatic. Eyes: EOMI, normal conjunctiva bilaterally Chest/axilla: Normal chest wall appearance and motion. Nontender with no deformity. Cardiovascular: Regular rate and rhythm with a normal S1 and S2. No gallops, murmurs, or rubs. 2+ distal pulses. Respiratory: Lungs have equal breath sounds bilaterally, clear to auscultation and percussion. No rales, rhonchi or wheezes noted. No increased work of breathing, no retractions or nasal flaring. Abdomen/GI: Soft. No guarding or rebound. Mild epigastric TTP without rebound or guarding. Negative Diaz's sign. Skin: Warm, dry with normal turgor. Normal color with no rashes, no lesions, and no evidence of cellulitis. MS/ Extremity: Pulses equal, no cyanosis. Neurovascular intact. Full, normal range of motion. Ambulatory without difficulty. Psych: Awake, alert, with orientation to person, place and time. Behavior, mood, and affect are within normal limits. Vital Signs: 01:57 BP 156 / 116; Pulse 58; Resp 19; Temp 97.3(TE); Pulse Ox 100% ; Weight 88.9 kg (R); kl Height 5 ft. 6 in. ; Pain 9/10; 03:31 BP 141 / 96; Pulse 62; Resp 18 S; Pulse Ox 100% on R/A; lg3 01:57 Body Mass Index 31.63 (88.90 kg, 167.64 cm) kl 01:57 Pain Scale: Adult kl MDM: 02:10 Patient medically screened. sd2 02:11 Differential diagnosis: Gastritis, cholecystitis, pancreatitis, SBO, diverticulitis, sd2 kidney stone, appendicitis, UTI, dehydration, electrolyte abnormality among others. Data reviewed: vital signs, nurses notes, lab test result(s). I considered the following discharge prescriptions or medication management in the emergency department Medications were administered in the Emergency Department. See SEP. 03:42 Data reviewed: radiologic studies, ultrasound. Consideration of Admission/Observation sd2 Patient was admitted/placed on observation. Management of patient was discussed with the following: Maintenance Tech: Dr. Valverde, General Surgery. Test considered but Not performed: CT: US is diagnostic. Counseling: I had a detailed discussion with the patient and/or guardian regarding: the historical points, exam findings, and any diagnostic results supporting the discharge/admit diagnosis, lab results, radiology results, the need for further work-up and treatment in the hospital. Response to treatment: the patient's symptoms have mildly improved after treatment. ED course: Labs and imaging reviewed. Gallstone in neck of gallbladder with uncontrolled pain. General Surgery consulted for further management and will admit to surgery service with plan for OR later today. No abx for now per surgery. Pt in agreement with treatment plan. . 12/13 02:11 Order name: CBC with Diff; Complete Time: 02:49 sd2 12/13 02:11 Order name: CMP; Complete Time: 02:49 sd2 12/13 02:11 Order name: Lipase; Complete Time: 02:49 sd12/13 02:11 Order name: Test, Urine; Complete Time: 02:49 sd2 12/13 02:11 Order name: Urinalysis w/ reflexes; Complete Time: 02:49 sd2 12/13 03:42 Order name: Basic Metabolic Panel EDMS 12/13 03:42 Order name: Basic Metabolic Panel EDMS 12/13 03:42 Order name: CBC with Automated Diff EDMS 12/13 03:42 Order name: CBC with Automated Diff EDMS 12/13 02:56 Order name: US Abdomen Limited sd2 12/13 03:42 Order name: NPO EDMS 12/13 02:11 Order name: IV Saline Lock; Complete Time: 02:32 sd2 12/13 02:11 Order name: Labs collected and sent; Complete Time: 02:32 sd2 Administered Medications: 02:32 CANCELLED (Other Intervention Used): Famotidine PO 20 mg PO once lg3 02:32 Drug: GI Cocktail without - (Maalox PO Suspension 30 ml, Lidocaine Mucous lg3 Membrane Liquid 2 % 15 ml) Route: PO; 04:32 Follow up: Response: No adverse reaction; No change in condition lg3 02:32 Drug: Ondansetron IVP 4 mg Route: IVP; Site: right antecubital; lg3 04:32 Follow up: Response: No adverse reaction; Marked relief of symptoms lg3 02:32 Drug: Famotidine IVP 20 mg Route: IVP; Site: right antecubital; lg3 04:32 Follow up: Response: No adverse reaction; No change in condition lg3 03:29 Drug: morphine IVP or IV 4 mg Route: IVP; Infused Over: 4 mins; Site: right antecubital;lg3 04:32 Follow up: Response: No adverse reaction; Marked relief of symptoms lg3 Disposition Summary: 12/13/22 03:45 Hospitalization Ordered Hospitalization Status: Observation sd2 Provider: Jadon Valverde2 [facility] sd2 Condition: Stable sd2 Problem: new sd2 Symptoms: have improved sd2 Bed/Room Type: Standard ks2 Room Assignment: 412(12/13/22 03:50) cg Diagnosis - Other cholelithiasis without obstruction sd2 Forms: - Medication Reconciliation Form sd2 - SBAR form sd2 Signatures: Dispatcher [employer] EDHeidi Kent RN RN kl Garcia, Cindy, RN RN cg Gibson, Lacie, RN RN lg3 Madhavi Camejo MD MD sd2 Corrections: (The following items were deleted from the chart) 02:32 02:11 Famotidine PO 20 mg PO once ordered. sd2 lg3 03:50 03:45 sd2 cg
[2022-12-13] MEDS: NA CHLORIDE 0.9% 1,000 ML IV SCH ×2 (04:48→16:09)
[2022-12-13 04:55] VITALS: BMI 32.0
[2022-12-13] MEDS: ONDANSETRON 4 MG/2 ML VIAL IV PRN ×2 (10:50→16:34)
[2022-12-13] MEDS: MORPHINE 4 MG/ML SYR IV PRN ×2 (10:51→16:34)
--- NOTE | 2022-12-13 13:26 | P.HP ---
Date of Service: 12/13/22 PC: This 32-year-old female presented to the emergency room with severe right upper quadrant abdominal pain for diagnosis and treatment. HPC: This patient, had been at work, went to get something to eat. Shortly thereafter she experienced severe right upper quadrant abdominal pain, radiating to her back. She says episodes of this off and on for the last few months, but this is the worst she is ever had. PSHx: Negative PMHx: No other medical issues Social Hx: Allergic to penicillin Sys R: Negative O/E: Awake alert mildly uncomfortable at the moment HEENT: Not jaundiced Chest: Chest movement equal bilaterally Abd: Mild right upper quadrant tenderness at the moment [place]: Intact Data: Has possible sludge or stones around the neck of the gallbladder Impression: Cholelithiasis with biliary colic Plan: I will taken to the operating room for laparoscopic possible open cholecystectomy with a cholangiogram. The risks of this procedure have been discussed. The possibility of bleeding, infection, injury to bile ducts blood vessels and intestines has been described. The possible need for an open and or further surgeries and procedures was discussed. She understands and wants us to proceed.
[2022-12-13] MEDS ORDERED: Ringers Lactate 1,000 ML IV ONE (13:30)
[2022-12-13] MEDS ORDERED: FENTANYL CITR 100 MCG/2 ML ONE (13:32)
[2022-12-13] MEDS ORDERED: GLYCOPYRROLATE 0.2 MG/ML SYR ONE (13:32)
[2022-12-13] MEDS ORDERED: LIDOCAINE 1% MPF 5 ML VIAL ONE (13:32)
[2022-12-13] MEDS ORDERED: MIDAZOLAM HCL 2 MG/2 ML INJ ONE (13:32)
[2022-12-13] MEDS ORDERED: propofoL 200 MG/20 ML VIAL IV ONE (13:32)
[2022-12-13] MEDS ORDERED: NEOSTIGMINE 1 MG/ML -10 ML VIAL ONE (13:33)
[2022-12-13] MEDS ORDERED: KETOROLAC 30 MG/ML INJ ONE (13:33)
[2022-12-13] MEDS ORDERED: dexAMETHasone 4 MG/ML VIAL ONE (13:33)
[2022-12-13] MEDS ORDERED: ROCURONIUM 50 MG/5 ML VIAL IV ONE (13:33)
--- NOTE | 2022-12-13 14:36 | P.OP ---
Preoperative diagnosis: Cholecystitis with cholelithiasis, biliary colic Postoperative diagnosis: The same Primary procedure: Laparoscopic cholecystectomy with cholangiogram Secondary procedure: Tap block Anesthesia: General Estimated blood loss: Less than 10 cc Specimen: 1 gallbladder and contents Operative Technique: The patient brought the operating room and placed supine on the table. After the induction of adequate general endotracheal anesthesia, the area of the abdomen was prepped with a DuraPrep solution, she was draped in the usual aseptic manner. Attention was turned towards the umbilicus. After injecting 1.25% Marcaine, a skin incision was made. This was brought down through the skin and subcutaneous tissue. The Visiport was used to enter the peritoneal cavity and created pneumoperitoneum to approximately 12 mmHg. With the patient's head elevated and the table turned towards the left we could visualize the right upper quadrant. A tap block was done now 1.25% Marcaine to allow for adequate analgesia both intra and postoperatively. A skin incision was made. A 5 mm trocar was placed in the upper midline, and 2 other fives on the right lateral side. The gallbladder was then inspected. It was seen to have mild edema throughout the serosal surface. A grasper was placed on the fundus of the gallbladder. Another been down by Jane's pouch. Applying lateral traction we were able to take down some omental adhesions from the serosal surface. As we came around Jane's pouch general dissection allowed us to expose the cystic duct and artery. Having obtained the critical view, we were able to place a clip between the gallbladder and the cystic duct. An opening was made into the cystic duct through which we obtained a normal intraoperative cholangiogram the cholangiocatheter was removed. The cystic duct was now clipped and divided. The cystic artery was identified and 2 clips were placed in this area. The gallbladder was now dissected free from the liver bed, placed into an Endo Catch, and brought out through the umbilical trocar site at this point the abdomen was inspected to ensure adequate hemostasis. The patient was returned to the neutral position on the OR table. The irrigating fluid aspirated from the right paracolic gutter and the subhepatic hepatic space. At this point the Endo Close was used to approximate the umbilical fascial defect. The pneumoperitoneum was now collapsed, the sutures tied, and the trocars removed. At the end of the procedure she was in a stable condition was sent to the recovery room. Needle sponge instrument count were correct. No drains were placed. Complications: None Transferred to: Recovery Room Condition: Good
[2022-12-13] MEDS ORDERED: HYDROMORPHONE HCL 1 MG/ML INJ ONE (14:54)
[2022-12-13] MEDS ORDERED: MEPERIDINE HCL 25 MG/ML SYR ONE (15:02)
[2022-12-13 15:16] VITALS: O2SAT 96
--- NOTE | 2022-12-13 16:33 | RAD REPORT ---
EXAM DESCRIPTION: RAD - Cholangiogram Oper-Xray Or - 12/13/2022 4:25 pm CLINICAL HISTORY: LAP CATERINA WITH IOC DONE WITH DR SANTOS OR ROOM 4 COMPARISON: Abdomen Exam Limited dated 12/13/2022 FINDINGS: Cystic duct injection performed by operating surgeon. Common bile duct is normal in calibe r without evidence of retained stone. Total fluoro time: 0.5 minutes. IMPRESSION: No evidence of retained common duct stone.
[2022-12-13] MEDS ORDERED: PROMETHAZINE INJ 25 MG/ML AMP IV PRN (19:23)
[2022-12-13] MEDS: HYDROCODONE/APAP 7.5/325 MG TAB PO PRN (20:20)
[2022-12-14] MEDS: MORPHINE 4 MG/ML SYR IV PRN ×2 (02:06→12:01)
[2022-12-14] MEDS: NA CHLORIDE 0.9% 1,000 ML IV SCH ×2 (02:07→10:00)
[2022-12-14] MEDS: ONDANSETRON 4 MG/2 ML VIAL IV PRN (07:02)
[2022-12-14] MEDS: HYDROCODONE/APAP 7.5/325 MG TAB PO PRN ×2 (07:02→15:47)
[2022-12-14 13:20] VITALS: BP 155/88; TEMP 98.2
--- NOTE | 2022-12-14 14:31 | P.DS ---
Admission Date: 12/13/22 Discharge Date: 12/14/22 Disposition: ROUTINE DISCHARGE Discharge Condition: GOOD Reason for Admission: Acute postoperative abdominal pain Procedures: Laparoscopic cholecystectomy with intraoperative cholangiogram Brief History of Present Illness: Patient presented to the emergency room with right upper quadrant abdominal pain for diagnosis and treatment Hospital Course: On work-up the patient was found to have acute on chronic cholecystitis with biliary colic. She was admitted for antibiotics and pain control. She was brought to the operating room where she underwent a laparoscopic cholecystectomy as well as an intraoperative cholangiogram. The cholangiogram was negative and she tolerated this procedure well. She was admitted postoperatively for observation and pain control. Today she is up ambulating, tolerating a diet, and is deemed fit for discharge. Vital Signs/Physical Exam: Temp Pulse Resp BP Pulse Ox 98.2 F 64 16 155/88 H 99 12/14/22 12:00 12/14/22 12:00 12/14/22 12:31 12/14/22 12:00 12/14/22 12:31 Laboratory Data at Discharge: WBC 8.70 thou/uL (4.3-10.9) 12/13/22 02:11 Hgb 15.0 g/dL (12.0-15.0) 12/13/22 02:11 Hct 43.8 % (36.0-45.0) 12/13/22 02:11 Plt Count 216 thou/uL (152-406) 12/13/22 02:11 Sodium 135 mEq/L (136-145) L 12/13/22 02:11 Potassium 3.6 mEq/L (3.5-5.1) 12/13/22 02:11 BUN 9 mg/dL (7-18) 12/13/22 02:11 Creatinine 0.87 mg/dL (0.55-1.02) 12/13/22 02:11 Glucose 133 mg/dL (74-106) H 12/13/22 02:11 Total Bilirubin 0.4 mg/dL (0.2-1.0) 12/13/22 02:11 AST 17 U/L (15-37) 12/13/22 02:11 ALT 28 U/L (13-56) 12/13/22 02:11 Alkaline Phosphatase 68 U/L (45-117) 12/13/22 02:11 Lipase 26 U/L (13-75) 12/13/22 02:11 Home Medications: NK [No Home Meds] 12/13/22 Physician Discharge Instructions: DC IV, DC home. See me next Wednesday. Pain medicine as needed, diet as tolerated. Milk of magnesia as needed. You may shower, change dressings as needed. Any questions or problems, go to the emergency room, or contact me.
--- NOTE | 2022-12-15 14:13 | RAD REPORT ---
EXAM DESCRIPTION: US Abdomen Limited, Right Upper Quadrant CLINICAL HISTORY: The patient is 32 years old and is Female; Abd pain;Nausea / vomiting [facility] MA IN TECHNIQUE: Real-time ultrasound of the gallbladder fossa with image documentation. COMPARISON: No relevant prior studies available. FINDINGS: LIVER: Unremarkable as visualized. GALLBLADDER: Estimated 1.3 cm posterior shadowing stone demonstrated within the gallbladder neck. Reportedly negative sonographic Diaz sign. No significant gallbladder wall thickening. Minimal gallbladder sludge. No pericholecystic fr ee fluid or edema. COMMON BILE DUCT: Unremarkable as visualized. No stones. No dilation. Common bile duct measures 0.4 cm in diameter. IMPRESSION: Estimated 1.3 cm posterior shadowing stone demonstrated within the gallbladder neck. N o sonographic findings to suggest acute cholecystitis. If there is high clinical suspicion for acute cholecystitis, or to evaluate for chronic cholecystitis or biliary dyskinesia, further evaluation by HIDA scan could be performed. Electronically signed by: Jamie Cristobal MD 12/13/2022 3:31 AM CDT Due to temporary technical issues with the PACS/Fluency reporting system, reports are being signed by the in house radiologist without review as a courtesy to ensure prompt reporting. The interpreting r adiologist is fully responsible for the content of the report.
== END 2022-12-14 15:57 | disposition home or self-care (01) ==
LOC: ER 01:46 → 4TH 03:40
PROVIDERS: ADMIT Surgery; ATTEND Surgery
PROC: BF10YZZ Fluoroscopy of Bile Ducts using Other Contrast (ICD-10-PCS; 2022-12-13)
PROC: 0FT44ZZ Resection of Gallbladder, Percutaneous Endoscopic Approach (ICD-10-PCS; principal; 2022-12-13 14:00)
DX: K80.10 Calculus of gallbladder with chronic cholecystitis without obstruction (principal)
CPT/HCPCS: 85025; 81001; 36415; 81025; 88304; 83690; 80053; 74300; 76705; 96375; 96374; 99285; 47605; J2550; J2704; J1100; J2710; J2001; J2250; J3010; J2175; J1170; J2405 ×5; G0378 ×4; J7120; J7030 ×3

== ENCOUNTER 2022-12-23 09:32 | Emergency (ER) | payer OTHER ==
--- OUTSIDE RECORDS SUMMARY | 2022-12-23 09:35 | XMS REPORT | Continuity of Care Document ---
:1990 Author Organization [facility] t Address [address] [place] [address] [place] [id number] Care Team Providers Name Role Phone STELLA WHEELER Primary Care Physician Unavailable STELLA WHEELER Attending Clinician Unavailable Stella Wheeler MD Attending Clinician 2, [facility] Attending Clinician Unavailable MEAGAN GRACE Attending Clinician Unavailable Meagan Grace MD Attending Clinician Frank Gonsalves MD Attending Clinician Ultrasound, [facility] Attending Clinician Unavailable Ortega Sommer MD Attending Clinician [phone] ORTEGA SOMMER Attending Clinician Unavailable Doctor Unassigned, [place] Attending Clinician Unavailable Khushboo Mcgovern MD Attending Clinician Jm Turner Attending Clinician KHUSHBOO MCGOVERN Attending Clinician Unavailable Angela Escoto PA-C Attending Clinician ANGELA ESCOTO Attending Clinician Unavailable Nurse, [facility] Attending Clinician Unavailable Pob, [...] Number Effective Date Expiration Date Paulo pabon [facility] [id number] 2020 00:00:00 [place] [id number] 2020 00:00:00 Problems Condition Condition Condition Status Onset Resolution Last Treating Co mments Source Name Details Category Date Date Treatment Clinician Date Acute low Acute low Disease Active Uni vers back pain back pain 03-02 ity of without without 00:00: [place] sciatica, sciatica, 00 Medi ameena unspecifie unspecifie Br anch d back d back pain pain laterality laterality Acute Acute Disease Active Univers nonintract nonintract 03-02 it y of able able 00:00: [place] headache, headache, 00 Medi ameena unspecifie unspecifie Br anch d headache d headache type type Acute Acute Disease Active Univers blood loss blood loss 7-28 it y of anemia anemia 00:00: [place] 00 [facility] Liveborn Liveborn Disease Active Unive rs infant, of infant, of 7-27 it y of [place] , , 00 Me dical born in born in [facility] hospital by vaginal by vaginal delivery delivery Mild Mild Disease Active Univers pre-eclamp pre-eclamp 7-26 it y of jr in jr in 00:00: [place] third third 00 Medical trimester trimester Bran ch Obesity Obesity Disease Active Univers (BMI (BMI 5-26 ity of 30-39.9) 30-39.9) 00:00: [place] 00 Medical Branch History of History of Disease Active U nivers depression depression -03 it y of 00:00: [place] 00 Medical [place] Obesity Obesity Disease Active Univers during during 01-29 [place] of [place] 00 [facility] Allergies, Adverse Reactions, Alerts Allergy Allergy Status [...] Univers IN INGREDI 12-30 ity of 00:00: [place] 00 Medical Branch Social History Social Habit Start Date Stop Date Quantity Comments Source History of Current smoker [place] of tobacco use [facility] Exposure to 2022-03-14 2022-03-24 Not sure [facility] SARS-CoV-2 00:00:00 14:02:00 [facility] (event) [place] Alcohol intake 2022-03-24 2022-03-24 Ex-drinker [facility] 00:00:00 00:00:00 (finding) [facility] Tobacco use and 2022-02-12 2022-02-12 Smokeless tobacco Un iversity of exposure 00:00:00 00:00:00 non-user [facility] Sex Assigned At [birth year] Universit y of 00:00:00 00:00:00 [facility] Smoking Status Start Date Stop Date Source Ex-smoker 2022-02-12 00:00:00 2022-02-12 00:00:00 Universi ty of [facility] Medications Ordered Filled Start Stop Current Ordering Indication Dosage Frequency Signature Comments Components Source Medication Medication Date Date Medication? Clinician (SIG) Name Name acetaminoph Yes [id number] 1{capsu Take 1 Univers en-caff-but 8- le} capsule by it y of albital 00:00: mouth [place] (ESGIC) per 00 every 4 Medic al capsule (four) Branch hours as needed (headache) . acetaminoph Yes [id number] 1{capsu Take 1 Univers en-caff-but 8- le} capsule by it y of albital 00:00: mouth [place] (ESGIC) per 00 every 4 Medic al capsule (four) Branch hours as needed (headache) . acetaminoph Yes [id number] 1{capsu Take 1 Univers en-caff-but 8-01 le} capsule by it y of albital 00:00: mouth [place] (ESGIC) per 00 every 4 Medic al capsule (four) Branch hours as needed (headache) . docusate 0 Yes [id number] 200mg Take 2 U nivers 100 mg 7-28 capsules ity of capsule 00:00: by mouth [place] 00 once daily Medical as needed Branch for Constipati on. ferrous 0 Yes [id number] 325mg Take 1 Un iggy sulfate 325 7-28 tablet by ity of mg (65 mg 00:00: [place] iron) 00 the Medical tablet morning. Branch ibuprofen 0 Yes [id number] 600mg Take 1 Univers 600 mg 7-28 tablet by ity of tablet 00:00: mouth [place] 00 every 6 Medical (six) Branch hours as needed (Pain). Take with food or milk. PNV 67-iron 0 Yes [id number] 1{capsu Take 1 Univers ps-folate 7-28 le} capsule by ity of no.1-dha 00:00: mouth [place] (VITAFOL 00 daily. Medical ULTRA) 29 Branch mg iron- 1 mg-200 mg Cap docusate 0 Yes [id number] 200mg Take 2 U nivers 100 mg 7-28 capsules ity of capsule 00:00: by mouth [place] 00 once daily Medical as needed Branch for Constipati on. ferrous 2021-0 Yes [id number] 325mg Take 1 Un iggy sulfate 325 7-28 tablet by ity of mg (65 mg 00:00: [place] iron) 00 the Medical tablet morning. Branch ibuprofen 2021-0 Yes [id number] 600mg Take 1 Univers 600 mg 7-28 tablet by ity of tablet 00:00: mouth [place] 00 every 6 Medical (six) Branch hours as needed (Pain). Take with food or milk. PNV 67-iron 2021-0 Yes [id number] 1{capsu Take 1 Univers ps-folate 7-28 le} capsule by ity of no.1-dha 00:00: mouth [place] (VITAFOL 00 daily. Medical ULTRA) 29 Branch mg iron- 1 mg-200 mg Cap docusate Yes [id number] 200mg Take 2 U nivers 100 mg 7-28 capsules ity of capsule 00:00: by mouth [place] 00 once daily Medical as needed Branch for Constipati on. ferrous Yes [id number] 325mg Take 1 Un iggy sulfate 325 7-28 tablet by ity of mg (65 mg 00:00: mouth in [facility] s iron) 00 the Medical tablet morning. Branch ibuprofen Yes [id number] 600mg Take 1 Univers 600 mg 7-28 tablet by ity of tablet 00:00: mouth [place] 00 every 6 Medical (six) Branch hours as needed (Pain). Take with food or milk. PNV 67-iron Yes [id number] 1{capsu Take 1 Univers ps-folate 7-28 le} capsule by ity of no.1-dha 00:00: mouth [place] (VITAFOL 00 daily. Medical ULTRA) 29 Branch mg iron- 1 mg-200 mg Cap Immunizations Ordered Filled Immunization Date Status Comments [facility] e Immunization Name Name Rho (d) Immune 2022-02-26 Completed University of Globulin 00:00:00 [facility] Rho (d) Immune 2022-02-26 Completed University of Globulin 00:00:00 [facility] Rho (d) Immune 2022-02-26 Completed University of Globulin 00:00:00 [facility] Rho (d) Immune 2021-12-12 Completed University of Globulin 00:00:00 [facility] Rho (d) Immune 2021-12-12 Completed University of Globulin 00:00:00 [facility] Rho (d) Immune 2021-12-12 Completed University of Globulin 00:00:00 [facility] TDAP 2021-12-04 Completed University of 00:00:00 [facility] TDAP 2021-12-04 Completed University of 00:00:00 [facility] TDAP 2021-12-04 Completed University of 00:00:00 [facility] Rho (d) Immune 2021 Completed University of Globulin 00:00:00 [facility] Rho (d) Immune 2021 Completed University of Globulin 00:00:00 [facility] Rho (d) Immune 2021 Completed University of Globulin 00:00:00 [facility] Influenza Virus 2021-07-28 Completed Universit y of Vaccine Quad IM, 00:00:00 [place] Me dical Preserv and ABX Branch Free 6 MO-64 YRS Influenza Virus 2021-07-28 Completed Universit y of Vaccine Quad IM, 00:00:00 [place] Me dical Preserv and ABX Branch Free 6 MO-64 YRS Influenza Virus 2021-07-28 Completed Universit y of Vaccine Quad IM, 00:00:00 [place] Me dical Preserv and ABX Branch Free 6 MO-64 YRS Rho (d) Immune 2020-11-27 Completed University of Globulin 00:00:00 [facility] Rho (d) Immune 2020-11-27 Completed University of Globulin 00:00:00 [facility] Rho (d) Immune 2020-11-27 Completed University of Globulin 00:00:00 [facility] Rho (d) Immune 2020-09-13 Completed University of Globulin 00:00:00 [facility] Rho (d) Immune 2020-09-13 Completed University of Globulin 00:00:00 [facility] Rho (d) Immune 2020-09-13 Completed University of Globulin 00:00:00 [facility] TDAP 2020-09-11 Completed University of 00:00:00 [facility] TDAP 2020-09-11 Completed University of 00:00:00 [facility] TDAP 2020-09-11 Completed University of 00:00:00 [facility] Influenza Virus 2020-06-18 Completed Universit y of Vaccine Quad .5 mL 00:00:00 [facility] IM 6+ MO Branch Influenza Virus 2020-06-18 Completed Universit y of Vaccine Quad .5 mL 00:00:00 [facility] IM 6+ MO Branch Influenza Virus 2020-06-18 Completed Universit y of Vaccine Quad .5 mL 00:00:00 [facility] 6+ MO Branch Rho (d) Immune 2019-01-29 Completed University of Globulin 00:00:00 [facility] Rho (d) Immune 2019-01-29 Completed University of Globulin 00:00:00 [facility] Rho (d) Immune 2019-01-29 Completed University of Globulin 00:00:00 [facility] TDAP (ADACEL) 2018-12-30 Completed University of VACCINE 00:00:00 [facility] TDAP (ADACEL) 2018-12-30 Completed University of VACCINE 00:00:00 [facility] TDAP (ADACEL) 2018-12-30 Completed University of VACCINE 00:00:00 [facility] Influenza Virus 2018-06-22 Completed Universit y of Vaccine Quad .5 mL 00:00:00 [facility] IM 6+ MO Branch Influenza Virus 2018-06-22 Completed Universit y of Vaccine Quad .5 mL 00:00:00 [facility] IM 6+ MO Branch Influenza Virus 2018-06-22 Completed Universit y of Vaccine Quad .5 mL 00:00:00 [facility] IM 6+ MO Branch Rho (d) Immune 2018-06-02 Completed University of Globulin 00:00:00 [facility] Rho (d) Immune 2018-06-02 Completed University of Globulin 00:00:00 [facility] Rho (d) Immune 2018-06-02 Completed University of Globulin 00:00:00 [facility] Vital Signs Vital Name Observation Time Observation Value Comments Source Systolic blood 2022-03-24 19:31:00 121 mm[Hg] Univer sity of pressure [facility] Diastolic blood 2022-03-24 19:31:00 77 mm[Hg] Unive rsity of [facility] Heart rate 2022-03-24 19:31:00 78 /min Universi ty [facility] Body temperature 2022-03-24 19:31:[address] [facility] Body height 2022-03-24 19:31:00 167.6 cm Universi ty [facility] Body weight 2022-03-24 19:31:00 96.888 kg General acute hospital BMI 2022-03-24 19:31:00 34.48 kg/m2 [facility] Systolic blood 2022-03-04 19:10:00 137 mm[Hg] Univer sity of pressure [facility] Diastolic blood 2022-03-04 19:10:00 80 mm[Hg] Unive rsity of pressure [facility] Heart rate 2022-03-04 19:09:00 91 /min Universi ty [facility] Body temperature 2022-03-04 19:09:00 37.28 Annika [facility] Body height 2022-03-04 19:09:00 167.6 cm Universi ty [facility] Body weight 2022-03-04 19:09:00 96.979 kg Universi [facility] BMI 2022-03-04 19:09:00 34.51 kg/m2 Universi [facility] Systolic blood 2022-03-02 19:34:00 142 mm[facility]Hg[facility] Diastolic blood 2022-03-02 19:34:00 96 mm[facility]Hg] [facility] 2022-03-02 19:33:00 71 /min [facility] Body temperature 2022-03-02 19:33:[address] [facility] [address] [facility] Respiratory rate 2022-03-02 19:33:00 19 /min [facility] Body height 2022-03-02 19:33:00 167.6 cm General acute hospital Body weight 2022-03-02 19:33:00 99.791 kg General acute hospital BMI 2022-03-02 19:33:00 35.51 kg/m2 General acute hospital Procedures Procedure Date / Time Performed Performing Clinician Sourc e COMP. METABOLIC PANEL 2022-03-02 20:12:00 Stella Wheeler [facility] ([id number]) [facility] Encounters Start End Encounter Admission Attending Care Care Encounter Source Date/Time Date/Time Type Type Clinicians Facility Department ID 2021-09-20 Outpatient X [facility] [id number] Univers 19:19:16 ity [facility] 2021-06-01 Outpatient P [facility] [id number] Univers 14:01:23 ity [facility] 2021-06-01 Outpatient P [facility] [id number] Univers 13:56:21 ity [facility] 2022-09-28 2022-09-28 Outpatient R STELLA WHEELER NCDENEEN [facility] [id number] Univers 09:30:00 09:30:00 ity [facility] 2022-03-24 2022-03-24 Outpatient R STELLA WHEELER NCDENEEN [facility] [id number] Univers 14:15:00 15:03:40 ity [facility] 2022-03-24 2022-03-24 Routine Stella Wheeler NCDENEEN [id number] Univers 14:15:00 15:03:40 Cam [place] [id number] ity of [place].2.686 [place] [id number] [facility] [address] [facility] 2022-03-04 2022-03-04 Routine [facility] [id number] Univers 14:00:00 14:15:00 Cam [place] [id number] ity of Visit [place] 4.2.7.2.686 [place] [id number] [address] 2022-03-04 2022-03-04 Outpatient R LIAM STELLA [facility] [id number] Univers 14:00:00 14:00:00 ity of [facility] 2022-03-02 2022-03-02 Recreation Director 2, Adc Lab [facility] [id number] Univers 14:45:00 15:00:00 Visit Stella WheelerTON [id number] ity of [place] 4.2.7.2.686 [place] [id number] [address] 2022-03-02 2022-03-02 Outpatient R STELLA WHEELER [facility] [id number] Univers 13:45:00 14:57:40 ity of [facility] 2022-03-02 2022-03-02 Routine [facility] [id number] Univers 13:45:00 14:57:40 Cam [place] [id number] ity of Visit [place] 4[place]2.7.2.686 [place] [id number] [address] 2022-03-02 2022-03-02 Outpatient R LIAM STELLA [facility] [id number] Univers 14:00:00 14:00:00 ity of [facility] 2022-02-24 2022-02-26 [facility] [id number] Univers 13:41:00 15:00:00 MEAGAN ity of [facility] 2022-02-24 2022-02-26 [facility] Stella Wheeler [facility] [id number] Univers 13:41:00 15:00:00 Encounter Johnkris, Meagan Muñoz DELL [id number] ity of [facility] 4.2.7.2.686 [facility] [id number] [address] 2022-02-26 2022-02-26 Outpatient R STELLA WHEELER [facility] [id number] Univers 13:00:00 13:00:00 ity [facility] 2022-02-25 2022-02-25 [facility] [id number] Univers 01:43:00 07:18:00 Event Frank Bates DELL [id number] ity of [place] 4.2.7.2.686 [facility] [id number] [address] 2022-02-24 2022-02-24 [facility] [id number] Univers 21:59:05 21:59:05 Event Frank Bates DELL [id number] ity of [facility] [id number] [facility] [id number] [address] 2022-02-24 2022-02-24 Recreation Director Ultrasound, [facility] 1.2 .840.114 [id number] Univers 08:30:00 09:00:00 Visit Ortega Sommer 350.1 .13.10 ity of [facility] 4.2.7.2.[address] [facility] PROFESSIO [id number] Mn dical [facility] 134 Branch [facility] 2022-02-24 2022-02-24 Outpatient P HARRISON [facility] [id number] Univers 08:30:00 08:30:00 OSEI it y of Paulo VIVAS [facility] 2022-02-24 2022-02-24 Orders Doctor ULLOA 1.2.840.114 [id number] Univers 00:00:00 00:00:00 Only Unassigned, BRIANNA 350.1.13.[address] [facility] 4.2.7.2.686 Ralf as [id number] [facility] 009 [place] 2022-02-19 2022-02-19 Outpatient R STELLA WHEELER [facility] [id number] Univers 13:00:00 14:16:03 ity of [facility] 2022-02-19 2022-02-19 Routine Stella Wheeler [facility] [id number] Univers 13:00:00 14:16:03 Cam [place] 350.1.13.10 ity of [place] 4[place]2.[place].2.[place] [id number] Mn dical NAL [address] [place] [address] 2022-02-13 2022-02-13 Routine Khushboo Mcgovern [facility] 1.2.840.114 [id number] Univers 16:00:00 16:00:00 [place] 350.1.13.10 ity of Visit [place] 4.2.7.2.686 [place] [id number] Mn dical NAL [address] [place] [address] 2022-02-13 2022-02-13 Outpatient X STELLA WHEELER [facility] [id number] Univers 11:27:00 14:20:00 ity of [facility] 2022-02-13 2022-02-13 Emergency AmyJm Lorenza [facility] 1.2.840. [id number] Univers 11:27:00 14:20:00 Khushboo Mcgovern 350.1.13.10 ity of Stella Wheeler [place] 4.2.7.2.686 [facility] [id number] [facility] 083 [place] 2022-02-13 2022-02-13 Outpatient R KHUSHBOO MCGOVERN [facility] [id number] Univers 16:00:00 11:06:42 ity of [facility] 2022-02-13 2022-02-13 Telephone Stella Wheeler [facility] 1.2.840.114 [id number] Univers 00:00:00 00:00:00 Cam [place] 350.1.13.10 i ty of [place] 4.2.7.2.[place] [id number] Mn dical NAL [address] [facility] 2022-02-13 2022-02-13 Orders Doctor ULLOA 1.2.840.114 [id number] Univers 00:00:00 00:00:00 Only Unassigned, BRIANNA 350.1.13.10 ity of [place] [facility] 4.2.7.2.686 Ralf as [id number] [address] 2022-02-12 2022-02-12 Outpatient R LIAM STELLA [facility] [id number] Univers 08:45:00 09:28:41 ity of [facility] 2022-02-12 2022-02-12 Routine [facility] [id number] Univers 08:45:00 09:28:41 Duncan SHARPE 350.1.13.10 ity of [place] 4[place]7.2.[place] [id number] Mn dical NAL [address] [place] [address] 2022-02-12 2022-02-12 Outpatient R LIAM STELLA [facility] [id number] Univers 08:45:00 08:45:00 ity of [facility] 2022-02-05 2022-02-05 Recreation Director 2, [facility] Lab [facility] 1.2.840.114 [id number] Univers 10:00:00 10:15:00 Visit Angela Escoto 350.1.13.10 ity of [place] 4.2.7.2.686 [place] [id number] Mn dical [facility] [address] [facility] 2022-02-05 2022-02-05 Outpatient R JEVON [facility] [id number] Univers 08:45:00 09:32:56 ANGELA ity [facility] 2022-02-05 2022-02-05 Routine Jevon [facility] [id number] Univers 08:45:00 09:32:56 Angela SHARPE 350.1.13.10 ity of Visit [place] 4.2.7.2.[place] [id number] Mn dical NAL [address] [place] [address] 2022-02-05 2022-02-05 Orders Doctor LAILA 1.2.840.114 [id number] Univers 00:00:00 00:00:00 Only Unassigned, BRIANNA 350.1.13.10 ity of [place] [facility] 4.2.7.2.686 Arlf as [id number] [address] 2022-01-30 2022-01-30 Outpatient R BLELO [facility] [id number] Univers 08:15:00 08:59:51 MEAGAN ity of [facility] 2022-01-30 2022-01-30 [facility] 1.2.840.114 [id number] Univers 08:15:00 08:59:51 Meagan SHAR[place] 350.1.13.10 ity of Visit [place] 4[place]2.7.2.[place] [id number] [address] 2022-01-28 2022-01-28 Telephone Stella Wheeler [facility] 1.2.840.114 [id number] Univers 00:00:00 00:00:00 Duncan SHARPE 350.1.13.10 i ty of [place] 4[place]2.7.2.[place] [id number] Mn dic[address] 2022-01-27 2022-01-27 Recreation Director Ultrasound, [facility] 1.2 .840.114 [id number] Univers 08:30:00 09:00:00 Visit Ortega Sommer 350.1 .13.10 ity of [place] 4[place]2.[place].2.[place] [id number] Mn dic[address] 2022-01-27 2022-01-27 Outpatient P HARRISON [facility] [id number] Univers 08:30:00 08:30:00 OSEI it y of ORTEGA Bates [facility] 2022-01-22 2022-01-22 Outpatient R STELLA WHEELER [facility] [id number] Univers 08:45:00 09:35:54 ity of [facility] 2022-01-22 2022-01-22 Routine [facility] [id number] Univers 08:45:00 09:35:54 Cam [place] 350.1.13.10 ity of Visit [place] 4[place]7.2.[place] [id number] Mn dical [address] 2022-01-13 2022-01-13 Outpatient R JEVON [facility] [id number] Univers 08:45:00 08:45:00 ANGELA ity [facility] 2022-01-09 2022-01-09 Outpatient R KHUSHBOO MCGOVERN [facility] [id number] Univers 15:30:00 15:38:41 ity of [facility] 2022-01-09 2022-01-09 Routine Froilan Khushboo [facility] 1.2.840.114 [id number] Univers 15:30:00 15:38:41 [place] 350.1.13.10 ity of Visit [place] 4.2.7.2.686 [place] [id number] [address] 2022-01-08 2022-01-08 Outpatient R JEVON [facility] [id number] Univers 08:15:00 [facility]:15[facility] 2022-01-06 Outpatient P [facility] [id number] Univers 14:15:00 14:15:00 ity of [facility] 2021-12-25 2021-12-25 Outpatient R STELLA WHEELER [facility] [id number] Univers 08:15:00 08:50:32 ity of [facility] 2021-12-25 2021-12-25 Routine Liam Stella [facility] [id number] Univers 08:15:00 08:50:32 Cam [place] 350.1.13.10 ity of [place] 4[place]2.7.2.[place] [id number] [address] 2021-12-23 2021-12-23 Recreation Director Ultrasound, [facility] 1.2 .840.114 [id number] Univers 14:00:00 14:30:00 Visit Ortega SomemrTON 350.1 .13.10 ity of [facility] 4.2.7.2.686 [place] [id number] Mn dical NAL [address] [place] [address] 2021-12-23 2021-12-23 Outpatient P HARRISON [facility] [id number] Univers 14:00:00 14:00:00 OSEI it y of [place] [facility] 2021-12-12 2021-12-12 Outpatient R STELLA WHEELER [facility] [id number] Univers 08:00:00 08:16:05 ity of [facility] 2021-12-12 2021-12-12 Nurse Nurse, [facility] 1.2.840.114 [id number] Univers 08:00:00 08:16:05 Visit Stella Wheeler Dnucan SHARPE 350.1.13.10 ity of [place] [id number] Mn dical NAL [address] [place] [address] 2021-12-09 2021-12-09 [facility] 1.2.840.114 [id number] Univers 00:00:00 00:00:00 Duncan SHARPE 350.1.13.10 i ty of [facility] [place] [phone] Mn dical NAL [address] [place] [address] 2021-12-04 2021-12-04 Outpatient R MOHAMUD WHEELEREN [facility] [id number] Univers 11:15:00 11:48:04 ity of [facility] 2021-12-04 2021-12-04 Routine Angela Escoto [facility] 1.2.840.11 [id number] Univers 11:15:00 11:48:04 Stella Wheeler Duncan SHARPE 350.1.13.10 ity of [place] [phone] Mn dical NAL [address] [place] [address] 2021-12-04 2021-12-04 Recreation Director 2, [facility] Lab [facility] 1.2.840.114 [id number] Univers 09:00:00 09:15:00 Visit Stella Wheeler 350.1.13.10 ity of [place] [phone] Mn dicpa LOLI [address] [facility] 2021-12-04 2021-12-04 Telephone Stella Wheeler [facility] 1.2.840.114 [id number] Univers 00:00:00 00:00:00 Cam [place] 350.1.13.10 i ty of [place] [phone] [facility] 2021-11-28 2021-11-28 Telephone Stella Wheeler [facility] 1.2.840.114 [id number] Univers 00:00:00 00:00:00 Cam [place] 350.1.13.10 i ty of [place] [phone] [address] 2021-11-18 2021-11-18 Recreation Director Ultrasound, [facility] 1.2 .840.114 [id number] Univers 10:30:00 11:15:00 Visit Harrison GrahamOrtega 350.1 .13.10 ity of [place] [phone] [address] 2021-11-18 2021-11-18 Outpatient P HARRISON [facility] [id number] Univers 10:30:00 10:30:00 OSEI it y of [place] [facility] 2021-11-11 2021-11-11 Refill Liam Stella [facility] 1.2.654.853 [id number] Univers 00:00:00 00:00:00 Duncan [place] 350.1.13.10 i ty of [place] [phone] [address] 2021-11-05 2021-11-05 Outpatient George ESCOTO [facility] [id number] Univers 10:30:00 10:46:08 ANGELA azul [facility] 2021-11-05 2021-11-05 Routine Jevon [facility] 1.2.392.423 [id number] Univers 10:30:00 10:46:08 Angela SHARPE 350.1.13.10 ity of [place] [phone] Mn dical NAL [address] [place] [address] 2021-10-21 2021-10-21 Recreation Director Ultrasound, [facility] 1.2 .840.114 [id number] Univers 09:00:00 10:04:17 Visit Ortega Sommer 350.1 .13.10 ity of [place] [id number] Mn dical NAL [address] [place] [address] 2021-10-21 2021-10-21 Outpatient P [facility] [id number] Univers 09:00:00 09:00:00 ity of [facility] 2021-10-21 2021-10-21 Outpatient P HARRISON [facility] [id number] Univers 09:00:00 09:00:00 OSEI it y of [place] [facility] 2021-10-08 2021-10-08 Outpatient R LIAM STELLA [facility] [id number] Univers 11:15:00 12:05:15 ity of [facility] 2021-10-08 2021-10-08 Routine [facility] 1.2.985.946 [id number] Univers 11:15:00 12:05:15 Duncan CARLITOSMIKE 350.1.13.10 ity of Visit [place] [phone] Mn dical NAL [address] [place] [address] 2021-10-08 2021-10-08 Outpatient R LIAM STELLA [facility] [id number] Univers 11:15:00 11:15:00 ity of [facility] 2021-09-25 2021-09-25 Routine [facility] 1.2.134.834 [id number] Univers 14:45:00 15:00:00 Cam [place] 350.1.13.10 ity of [place] [phone] Mn dical NAL [address] [facility] 2021-09-25 2021-09-25 Outpatient R STELLA WHEELER [facility] [id number] Univers 14:45:00 14:45:00 ity [facility] 2021 2021-09-20 Outpatient X ADUM, [facility] WADE [id number] Univers 16:42:00 17:55:00 MEAGAN ity [facility] 2021 2021-09-20 [facility] 1.2.839.951 [id number] Univers 16:42:00 17:55:00 Meagan SHARPE 350.1.13.10 it[place] of [place] [id number] [address] 2021 2021 Telephone Stella Wheeler [facility] 1.2.840.114 [id number] Univers 00:00:00 00:00:00 Duncan SHARPE 350.1.13.10 i ty of [place] [phone] Mn dical NAL 134 [facility] 2021 2021 Telephone Stella Wheeler [facility] 1.2.840.114 [id number] Univers 00:00:00 00:00:00 Cam [place] 350.1.13.10 i ty of [place] [id number] Mn dical NAL 134 [facility] 2021-09-10 2021-09-10 Recreation Director Oswaldo, [facility] Main [facility] 1.2.8 40.114 [id number] Univers 11:00:00 11:15:00 Visit Angela Escoto 350.1.13.10 ity of [place] [phone] Mn dical NAL [address] [facility] 2021-09-10 2021-09-10 Outpatient R JEVON [facility] [id number] Univers 10:15:00 10:15:00 ANGELA azul [facility] 2021-09-10 2021-09-10 Outpatient R JEVON [facility] [id number] Univers 10:00:00 10:11:08 ANGELA azul [facility] 2021-09-10 2021-09-10 [facility] 1.2.432.381 [id number] Univers 10:00:00 10:11:08 Angela SHARPE 350.1.13.10 ity of [place] [id number] Mn dic[address] 2021-09-10 2021-09-10 Orders Doctor LAILA 1.2.840.114 [id number] Univers 00:00:00 00:00:00 Only Unassigned, BRIANNA 350.1.13.10 ity of [place] [facility] 4.2.7.2.686 Ralf as [phone] [address] 2021-09-02 2021-09-02 Telephone Stella Wheeler [facility] 1.2.840.114 [id number] Univers 00:00:00 00:00:00 Cam DELL 350.1.13.10 i ty of [place] [phone] [address] 2021-09-01 2021-09-01 Outpatient R JEVON [facility] [id number] Univers 11:00:00 11:00:00 ANGELA latha [facility] 2021-08-22 2021-08-22 Outpatient R BELLO [facility] [id number] Univers 09:00:00 09:00:00 MEAGAN latha [facility] 2021-08-04 2021-08-04 Outpatient R STELLA WHEELER [facility] [id number] Univers 08:30:00 09:09:40 ity of [facility] 2021-08-04 2021-08-04 Initial Stella Wheeler [facility] 1.2.895.701 [id number] Univers 08:30:00 09:09:40 Cam [place] 350.1.13.10 ity of [place] [phone] Mn dical NAL [address] [facility] 2021-07-28 2021-07-28 Outpatient R JEVON [facility] [id number] Univers 11:15:00 11:15:00 ANGELA latha [facility] 2021-07-28 2021-07-28 Recreation Director 2, [facility] 1.2.840.114 [id number] Univers 11:15:00 11:15:00 Visit Angela Escoto 350.1.13.10 ity of [place] [phone] Mn dical NAL [address] [facility] 2021-07-28 2021-07-28 Outpatient R JEVON [facility] [id number] Univers 09:45:00 10:18:04 ANGELA itrebecca [facility] 2021-07-28 2021-07-28 Office Jevon [facility] 1.2.954.284 [id number] Univers 09:45:00 10:18:04 Visit Angela SHARPE 350.1.13.10 i ty [facility] [place] [phone] Mn dical NAL 134 [facility] 2021-07-28 2021-07-28 Orders Doctor LAILA 1.2.840.114 [id number] Univers 00:00:00 00:00:00 Only Unassigned, BRIANNA 350.1.13.10 [email or web address] 4.2.7.2.686 Ralf as [phone] [address] 2021-06-30 2021-06-30 Outpatient George ESCOTO [facility] [id number] Univers 10:30:00 10:30:00 ANGELA auzl [facility] 2021-05-07 2021-05-07 Outpatient R JEVON [facility] [id number] Univers 11:45:00 11:45:00 ANGELA azul [facility] 2021-05-07 2021-05-07 Telemedici Jevon [facility] 1.2.840.114 [id number] Univers 11:04:25 11:19:25 ne Visit Angela Sharpe 350.1.13.10 ity of [place] [phone] [address] 2021-04-09 2021-04-09 Outpatient R JEVON [facility] [id number] Univers 11:45:00 11:45:00 ANGELA azul [facility] 2021-04-09 2021-04-09 [facility] 1.2.840.114 [id number] [facility] 11:24:27 11:39:27 ne Visit Angela Shapre 350.1.13.10 ity of [place] [phone] [address] 2021-03-12 2021-03-12 [facility] 1.2.840.114 [id number] [facility] 10:20:35 12:11:47 ne Visit Angela Sharpe 350.1.13.10 ity of [place] [phone] [address] 2021-03-12 2021-03-12 Outpatient R JEVON [facility] [id number] Univers 11:45:00 11:45:00 ANGELA azul [facility] 2021-01-28 2021-01-28 Outpatient R JEVON [facility] [id number] Univers 11:45:00 11:45:00 ANGELA azul [facility] 2021-01-27 2021-01-27 Outpatient R JEVON [facility] [id number] Univers 14:30:00 14:30:00 ANGELA azul [facility] 2020-12-26 2020-12-26 Routine Jevon [facility] 1.2.922.408 [id number] Univers 10:34:29 10:49:29 Angela Sharpe 350.1.13.10 ity of [place] [phone] [address] 2020-12-26 2020-12-26 Outpatient R JEVON [facility] [id number] Univers 10:45:00 10:45:[address] [facility] 2020-12-24 2020-12-24 Outpatient R NALLELYMADIHA [facility] [id number] Univers 08:00:00 08:00:00 ANGELA itrebecca [facility] 2020-11-26 2020-11-27 Hospital Stella Wheeler [facility] 1.2.840.114 [id number] Univers 04:00:00 16:00:00 Encounter Duncan Sharpe 350.1.13.10 ity of [place] [phone] [facility] [address] 2020-11-26 2020-11-26 [facility] [id number] Univers 11:30:00 11:30:[facility] 2020-11-26 2020-11-26 Orders Doctor LAILA 1.2.840.114 [id number] Univers 00:00:00 00:00:00 Only Unassigned, BRIANNA 350.1.13.10 ity of [place] [facility] 4.2.7.2.686 Ralf as [phone] [facility] [address] 2020-11-25 2020-11-25 Laboratory Only, [facility] Test [facility] 1.2.840. 114 [id number] Univers 11:19:27 11:34:27 Only Stella Wheeler 350.1.13.10 it[place] of [place] [phone] [facility] [address] 2020-11-25 2020-11-25 Routine Room, [facility] Nst [facility] 1.2.840.1 14 [id number] Univers 09:55:48 10:55:14 Stella Wheeler 350.1.13.10 ity of [place] [phone] Mn dical nal 134 [facility] 2020-11-25 2020-11-25 Outpatient R [facility] [id number] Univers 10:00:00 10:00:00 ity of [facility] 2020-11-25 2020-11-25 Orders Doctor LAILA 1.2.840.114 [id number] Univers 00:00:00 00:00:00 Only Unassigned, BRIANNA 350.1.13.10 ity of [place] [facility] 4.2.7.2.686 Ralf as [phone] [facility] [address] 2020-11-21 2020-11-21 Routine Room, [facility] 1.2.840.1 14 [id number] Univers 10:44:50 11:34:35 Stella Wheeler Cam [place] 350.1.13.10 ity of [place] [phone] Mn dical nal 134 [facility] 2020-11-21 2020-11-21 Outpatient R LIAM STELLA [facility] [id number] Univers 11:00:00 11:00:00 ity of [facility] 2020-11-18 2020-11-19 Hospital Liam Stella [facility] 1.2.840.114 [id number] Univers 18:24:00 09:10:00 Encounter Cam [place] 350.1.13.10 ity of [place] [phone] [facility] [address] 2020-11-18 2020-11-18 Routine Stella Wheeler [facility] 1.2.306.692 [id number] Univers 14:47:49 15:49:02 Cam [place] 350.1.13.10 ity of [place] [phone] Mn dical nal 134 [facility] 2020-11-18 2020-11-18 Outpatient R LIAM STELLA [facility] [id number] Univers 14:45:00 14:45:00 ity of [facility] 2020-11-18 2020-11-18 Telephone Stella Wheeler [facility] 1.2.840.114 [id number] Univers 00:00:00 00:00:00 Cam [place] 350.1.13.10 i ty of [place] [phone] Mn dical nal 134 [facility] 2020-11-11 2020-11-11 Recreation Director 2, [facility] Lab [facility] 1.2.840.114 [id number] Univers 13:16:08 13:31:08 Visit Angela Escoto 350.1.13.10 ity of [place] [phone] Mn dical nal 353 [facility] 2020-11-11 2020-11-11 Routine Jevon [facility] 1.2.847.458 [id number] Univers 11:24:40 12:22:36 Angela Sharpe 350.1.13.10 ity of [place] [phone] Mn dical nal 134 [facility] 2020-11-11 2020-11-11 Outpatient R JEVON [facility] [id number] Univers 11:30:00 11:30:00 ANGELA ity [facility] 2020-11-11 2020-11-11 Orders Doctor LAILA 1.2.840.114 [id number] Univers 00:00:00 00:00:00 Only Unassigned, BRIANNA 350.1.13.10 ity of [place] [facility] 4.2.7.2.686 Ralf as [phone] [address] 2020-10-31 2020-10-31 Outpatient R JEVON [facility] [id number] Univers 11:15:00 11:15:00 ANGELA itrebecca [facility] 2020-10-17 2020-10-17 Routine Stella Wheeler [facility] 1.2.668.287 [id number] Univers 10:57:52 11:35:04 Duncan Sharpe 350.1.13.10 ity of [place] [phone] Mn dical nal 134 [facility] 2020-10-17 2020-10-17 Outpatient R STELLA WHEELER [facility] [id number] Univers 11:15:00 11:15:00 ity of [facility] 2020-10-10 2020-10-10 Outpatient R STELLA WHEELER [facility] [id number] Univers 13:45:00 13:45:00 ity of [facility] 2020-09-25 2020-09-25 Routine Angela Escoto [facility] 1.2.840.11 [id number] Univers 13:55:51 14:10:51 Stella Wheeler 350.1.13.10 ity of [place] [phone] Mn dical nal 134 [facility] 2020-09-25 2020-09-25 Outpatient R STELLA WHEELER [facility] [id number] Univers 14:00:00 14:00:00 ity of [facility] 2020-09-13 2020-09-13 Nurse Nurse, [facility] 1.2.840.114 [id number] Univers 07:57:48 08:45:54 Visit Stella Wheeler 350.1.13.10 ity of [place] [phone] Mn dical nal 134 [facility] 2020-09-13 2020-09-13 Outpatient R [facility] [id number] Univers 08:00:00 08:00:00 ity of [facility] 2020-09-12 2020-09-12 Recreation Director 2, [facility] Lab [facility] 1.2.840.114 [id number] Univers 10:09:26 10:24:26 Visit Stella Wheeler [place] 350.1.13.10 ity of [place] [phone] Mn dical nal 353 [facility] 2020-09-12 2020-09-12 Outpatient R [facility] [id number] Univers 10:15:00 10:15:00 ity of [facility] 2020-09-11 2020-09-11 Routine Jevon [facility] 1.2.774.990 [id number] Univers 15:56:47 16:11:47 Angela Sharpe 350.1.13.10 ity of [place] [phone] [address] 2020-09-11 2020-09-11 Outpatient R JEVON [facility] [id number] Univers 16:00:00 16:00:00 ANGELA ity [facility] 2020-08-14 2020-08-14 Recreation Director Ultrasound, [facility] 1.2 .840.114 [id number] Univers 12:53:32 13:25:02 Visit Nano Stroud KENNEL MANAGER [employer] 350.1.13.10 ity of [facility] 4.2.7.2.686 Ralf as MATERNAL [phone] [facility] CHILD [address] [place] [address] 2020-08-14 2020-08-14 Outpatient P [facility] [id number] Univers 13:00:00 13:00:00 ity [facility] 2020-07-18 2020-07-18 Routine [facility] 1.2.984.332 [id number] Univers 15:50:18 16:58:13 Duncan Sharpe 350.1.13.10 ity of [place] [phone] [address] 2020-07-18 2020-07-18 Outpatient R LIAM [facility] [id number] Univers 15:45:00 15:45:00 ity [facility] 2020-07-17 2020-07-17 Recreation Director Ultrasound, [facility] 1.2 .840.114 [id number] Univers 09:04:59 10:04:59 Visit Jacqui Esposito KENNEL MANAGER [employer]G TRACK 350.1.13.10 ity of [facility] 4.2.7.2.686 Ralf as MATERNAL [phone] [facility] & [address] 2020-07-17 2020-07-17 Outpatient P [facility] [id number] Univers 09:30:00 09:30:00 ity [facility] 2020-07-16 2020-07-16 Outpatient R WHEELER, [facility] [id number] Univers 15:45:00 15:45:00 ity of [facility] 2020-06-18 2020-06-18 Recreation Director 2, [facility] 1.2.840.114 [id number] Univers 15:08:41 15:23:41 Visit Angela Escoto 350.1.13.10 it[place] of [place] [phone] Mn dical [facility] 353 [facility] 2020-06-18 2020-06-18 Routine Jevon [facility] 1.2.434.703 [id number] Univers 13:51:43 14:52:35 Angela Sharpe 350.1.13.10 ity of [place] [phone] Mn dical [facility] 134 [facility] 2020-06-18 2020-06-18 Outpatient R JEVON [facility] [id number] Univers 14:30:00 14:30:00 ANGELA ity of [facility] 2020-06-14 2020-06-14 Telephone Stella Wheeler [facility] 1.2.840.114 [id number] Univers 00:00:00 00:00:00 Duncan Sharpe 350.1.13.10 i ty of [place] [phone] Mn dic[address] 2020-06-03 2020-06-03 Outpatient R [facility] [id number] Univers 10:30:00 10:30:00 ity of [facility] 2020-06-01 2020-06-01 Outpatient R [facility] [id number] Univers 09:00:00 09:00:00 ity of [facility] 2020-05-30 2020-05-30 Outpatient R [facility] [id number] Univers 16:00:00 16:00:00 ity of [facility] 2020-05-21 2020-05-29 Initial WheelerMohamuden [facility] 1.2.199.493 [id number] Univers 14:22:34 15:36:37 Duncan Sharpe 350.1.13.10 ity of [place] [phone] Mn dical nal 134 [facility] 2020-05-29 2020-05-29 Telephone Stella Wheeler [facility] 1.2.840.114 [id number] Univers 00:00:00 00:00:00 Cam [place] 350.1.13.10 i ty of [place] [phone] Mn dical nal 134 [facility] 2020-05-23 2020-05-23 Telephone Stella Wheeler [facility] 1.2.840.114 [id number] Univers 00:00:00 00:00:00 Cam [place] 350.1.13.10 i ty of [place] [phone] Mn dical nal 134 [facility] 2020-05-21 2020-05-21 Recreation Director 2, [facility] Lab [facility] 1.2.840.114 [id number] Univers 16:02:06 16:17:06 Visit Stella Wheeler 350.1.13.10 ity of [place] [phone] Mn dicmilli hitchcock 353 [facility] 2020-05-21 2020-05-21 Outpatient R STELLA WHEELER [facility] [id number] Univers 14:30:00 14:30:00 ity of [facility] 2020-05-21 2020-05-21 Orders Doctor LAILA 1.2.840.114 [id number] Univers 00:00:00 00:00:00 Only Unassigned, BRIANNA 350.1.13.10 ity of [place] [facility] 4.2.7.2.686 Ralf as [phone] [address] Results Test Description Test Time Test Comments Results Result Comments Source COMP. METABOLIC PANEL (67265) 2022-03-02 21:17:55 Test Item Value Reference Range Interpretation Comme nts NA (test code = 2613467827) 138 mmol/L 135-145 K (test code = 4428095385) 4.4 mmol/L 3.5-5 CL (test code = 8258946733) 105 mmol/L 98-108 CO2 TOTAL (test code = 1917708630) 24 mmol/L 23-31 AGAP (test code = 1887438419) 2-16 BUN (test code = 2975066187) 11 mg/dL 7-23 GLUCOSE (test code = 8564981460) 83 mg/dL 70-110 CREATININE (test code = 0.65 mg/dL 0.5-1.04 8602431008) TOTAL BILI (test code = 0.3 mg/dL 0.1-1.6 3442129515) CALCIUM (test code = 8696455001) 8.8 mg/dL 8.6-10.6 T PROTEIN (test code = 9800473926) 6.1 g/dL 6.3-8.2 L ALBUMIN (test code = 5059495032) 3.4 g/dL 3.5-5 L ALK PHOS (test code = 2541273417) 95 U/L 34-122 ALTv (test code = 1742-6) 26 U/L 5-35 AST(SGOT) (test code = 3244422970) 19 U/L 13-40 eGFR (test code = 5723970789) mL/min/1.73m2 ASA (test code = ASA) Association [...] tests). Lab Interpretation (test code = Abnormal 20167-1) [facility]58:00 Test Item Value Reference Range Interpretation [...]
--- NOTE | 2022-12-23 09:57 | EDPHYS ---
Physician Documentation [facility] Name: Verenice Ovalle Age: 32 yrs Sex: Female : 1990 Arrival Date: 12/23/2022 Time: 09:32 Bed 12 Private MD: ED Physician Jeramie Gordon HPI: 12/23 10:37 This 32 yrs old Female presents to ER via Ambulatory with complaints of Staple Removal. rt 10:37 Patient presents to the ED 10 days after uncomplicated cholecystectomy requesting rt staple removal. Patient states that she went to Dr. Valverde's office, states that she could not afford the 200 on office visit so she came to the ED for staple removal. Denies other acute complaints at this time.. 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 - Social history:: Smoking status: . - Family history:: not pertinent. ROS: 10:37 Constitutional: Negative for fever, chills, and weight loss, Eyes: Negative for injury, rt pain, redness, and discharge, Cardiovascular: Negative for chest pain, palpitations, and edema, Respiratory: Negative for shortness of breath, cough, wheezing, and pleuritic chest pain, Abdomen/GI: Negative for abdominal pain, nausea, vomiting, diarrhea, and constipation, Skin: Negative for injury, rash, and discoloration, Neuro: Negative for headache, weakness, numbness, tingling, and seizure, Psych: Negative for depression, anxiety, suicide ideation, homicidal ideation, and hallucinations. Exam: 10:37 Constitutional: This is a well developed, well nourished patient who is awake, alert, rt and in no acute distress. Head/Face: Normocephalic, atraumatic. Skin: Warm, dry with normal turgor. Normal color with no rashes, no lesions, and no evidence of cellulitis. MS/ Extremity: Pulses equal, no cyanosis. Neurovascular intact. Full, normal range of motion. Neuro: Awake and alert, GCS 15, oriented to person, place, time, and situation. Cranial nerves II-XII grossly intact. Motor strength 5/5 in all extremities. Sensory grossly intact. Cerebellar exam normal. Normal gait. Psych: Awake, alert, with orientation to person, place and time. Behavior, mood, and affect are within normal limits. 10:37 Abdomen/GI: Healed surgical incisions that are clean dry and intact, no abdominal tenderness. Vital Signs: 09:38 BP 148 / 84; Pulse 71; Resp 16; Temp 98.1; Pulse Ox 97% on R/A; iw Procedures: 10:37 Suture/Staple removal: Removed 14 jazmyne, from abdomen, site appears well healed, rt Patient tolerated well, Identified jazmyne were removed, reevaluated to ensure that there were no remaining jazmyne. MDM: 09:40 Patient medically screened. bs3 10:37 Data reviewed: vital signs, nurses notes. Management of patient was discussed with the rt following: Clinical Admissions Manager: Discussed with Dr. Valverde's states that it is okay to remove jazmyne and have patient follow-up in clinic. External Records Reviewed: Outpatient record: Reviewed op note from gallbladder surgery. Administered Medications: No medications were administered Disposition Summary: 12/23/22 09:57 Discharge Ordered Location: Home rt Problem: new rt Symptoms: are resolved rt Condition: Stable rt Diagnosis - Encounter for Staple Removal rt Followup: rt - With: Jadon Valverde MD - When: 1 - 2 days - Reason: Discharge Instructions: - Discharge Summary Sheet rt - Minimally Invasive Cholecystectomy, Care After rt Forms: - Medication Reconciliation Form rt - Thank You Letter rt - Antibiotic Education rt - Prescription Opioid Use rt Signatures: Lexis Victoria RN RN iw Cedric Guerra RN RN ll1 Robert Holloway MD MD bs3 Jeramie Gordon MD MD rt
--- NOTE | 2022-12-23 09:57 | ER ---
Nurse's Notes [facility] Name: Verenice Ovalle Age: 32 yrs Sex: Female : 1990 Arrival Date: 12/23/2022 Time: 09:32 Bed 12 Private MD: Diagnosis: Encounter for Staple Removal Presentation: 12/23 09:38 Chief complaint: Patient states: needs staple removed from cholecystectomy site , had iw it removed on December 13, with Dr. Valverde. Coronavirus screen: At this time, the client does not indicate any symptoms associated with coronavirus-19. Ebola Screen: Patient negative for fever greater than or equal to 101.5 degrees Fahrenheit, and additional compatible Ebola Virus Disease symptoms Patient denies exposure to infectious person. Patient denies travel to an Ebola-affected area in the 21 days before illness onset. No symptoms or risks identified at this time. Initial Sepsis Screen: Does the patient meet any 2 criteria? No. Patient's initial sepsis screen is negative. Does the patient have a suspected source of infection? No. Patient's initial sepsis screen is negative. Risk Assessment: Do you want to hurt yourself or someone else? Patient reports no desire to harm self or others. Onset of symptoms was December 23, 2022. 09:38 Method Of Arrival: Ambulatory iw 09:38 Acuity: YUDI 4 iw Triage Assessment: 10:02 General: Appears in no apparent distress. Behavior is calm, cooperative, appropriate ll1 for age. Pain: Denies pain. 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 - Social history:: Smoking status: . - Family history:: not pertinent. Screenin:02 [facility] ED Fall Risk Assessment (Adult) Score/Fall Risk Level 0 - 2 = Low Risk ll1 Oriented to surroundings, Maintained a safe environment, Educated pt \T\ family on fall prevention, incl call for assistance when getting out of bed, Hourly rounding (assess needs \T\ fall precautionary measures) done. Abuse screen: Denies threats or abuse. Nutritional screening: No deficits noted. Tuberculosis screening: No symptoms or risk factors identified. Assessment: 09:44 Reassessment: No changes from previously documented assessment. Patient and/or family ll1 updated on plan of care and expected duration. Pain level reassessed. Patient is alert, oriented x 3, equal unlabored respirations, skin warm/dry/pink. 10:02 Reassessment: No changes from previously documented assessment. Patient and/or family ll1 updated on plan of care and expected duration. Pain level reassessed. Vital Signs: 09:38 BP 148 / 84; Pulse 71; Resp 16; Temp 98.1; Pulse Ox 97% on R/A; iw ED Course: 09:34 Patient arrived in ED. rg4 09:39 Triage completed. iw 09:39 Arm band placed on. iw 09:40 Jeramie Gordon MD is Attending Physician. rt 09:56 Jadon Valverde MD is Referral Physician. rt 10:03 Patient has correct armband on for positive identification. Bed in low position. Call ll1 light in reach. Cardiac monitoring not applicable on this patient. 10:03 No provider procedures requiring assistance completed. Patient did not have IV access ll1 during this emergency room visit. Administered Medications: No medications were administered Medication: 10:03 VIS not applicable for this client. ll1 Outcome: 09:57 Discharge ordered by . rt 10:03 Discharged to home ambulatory. ll1 10:03 Condition: stable 10:03 Discharge instructions given to patient, Instructed on discharge instructions, follow up and referral plans. Demonstrated understanding of instructions, follow-up care. 10:03 Patient left the ED. ll1 Signatures: Lexis Victoria RN RN Lynnette Eduardo rg4 Cedric Guerra RN RN 1 Jeramie Gordon MD MD rt
[2022-12-23 10:12] VITALS: BP 148/84; TEMP 98.1; O2SAT 97
== END 2022-12-23 10:03 | disposition home or self-care (01) ==
LOC: ER 09:32
DX: Z48.02 Encounter for removal of sutures (principal)

== ENCOUNTER 2023-02-16 16:54 | Emergency (ER) | payer OTHER ==
--- OUTSIDE RECORDS SUMMARY | 2023-02-16 17:00 | XMS REPORT | Continuity of Care Document ---
:1990 Author Organization [facility] [place] [facility] t Address [address] [place] [address] [place] [address] Care Team Providers Name Role Phone STELLA WHEELER Primary Care Physician Unavailable STELLA WHEELER Attending Clinician Unavailable Stella Wheeler MD Attending Clinician 2, [facility] Attending Clinician Unavailable MEAGAN GRACE Attending Clinician Unavailable Meagan Grace MD Attending Clinician Frank Gonsalves MD Attending Clinician Ultrasound, [facility] Attending Clinician Unavailable Ortega Sommer MD Attending Clinician [phone] ORTEGA SOMMER Attending Clinician Unavailable Doctor Unassigned, [place] Attending Clinician Unavailable Khushboo Mcgovern MD Attending Clinician Jm Turner Attending Clinician KHUSHBOO MCGOVERN Attending Clinician Unavailable Angela Escoto PA-C Attending Clinician ANGELA ESCOTO Attending Clinician Unavailable Nurse, [facility] Attending Clinician Unavailable Pob, Adc [...] Number Effective Date Expiration Date Paulo pabon [facility] [id number] 2020 00:00:00 [place] [id number] 2020 00:00:00 Problems Condition Condition Condition Status Onset Resolution Last Treating Co mments Source Name Details Category Date Date Treatment Clinician Date Acute low Acute low Disease Active Uni vers back pain back pain 03-02 ity of without without 00:00: [place] sciatica, sciatica, 00 Medi ameena unspecifie unspecifie Br anch d back d back pain pain laterality laterality Acute Acute Disease Active Univers nonintract nonintract 03-02 it y of able able 00:00: [place] headache, headache, 00 Medi ameena unspecifie unspecifie Br anch d headache d headache type type Acute Acute Disease Active Univers blood loss blood loss 7-28 it y of anemia anemia 00:00: [place] 00 [facility] Liveborn Liveborn Disease Active Unive rs , of , of 7-27 [place] y of [place] , , [place] d[place] born in born in [facility] hospital by vaginal by vaginal delivery delivery Mild Mild Disease Active Univers pre-eclamp pre-eclamp 7-26 it y of jr in jr in 00:00: [place] third third 00 Medical trimester trimester Bran ch Obesity Obesity Disease Active Univers (BMI (BMI 5-26 ity of 30-39.9) 30-39.9) 00:00: [place] 00 Medical Branch History of History of Disease Active U nivers depression depression -03 it y of 00:00: [place] 00 Medical [place] Obesity Obesity Disease Active Univers during during 01-29 [place] [facility] Allergies, Adverse Reactions, Alerts Allergy Allergy [...] Quantity Comments Source History of Current smoker [place] of tobacco use [facility] Exposure to 2022-03-14 2022-03-24 Not sure [facility] SARS-CoV-2 00:00:00 14:02:00 [facility] (event) [place] Alcohol intake 2022-03-24 2022-03-24 Ex-drinker [facility] 00:00:00 00:00:00 (finding) [facility] Tobacco use and 2022-02-12 2022-02-12 Smokeless tobacco Un iversity of exposure 00:00:00 00:00:00 non-user [facility] Sex [birth year] At [birth year] Universit y of 00:00:00 00:00:00 [facility] Smoking Status Start Date Stop Date Source Ex-smoker 2022-02-12 00:00:00 2022-02-12 00:00:00 Universi ty of [facility] Medications Ordered Filled Start Stop Current Ordering Indication Dosage Frequency Signature Comments Components Source Medication Medication Date Date Medication? Clinician (SIG) Name Name acetaminoph Yes [id number] 1{capsu Take 1 Univers en-caff-but 8- le} capsule by it y of albital 00:00: mouth [place] (ESGIC) per 00 every 4 Medic al capsule (four) Branch hours as needed (headache) . acetaminoph Yes [id number] 1{capsu Take 1 Univers en-caff-but 8- le} capsule by it y of albital 00:00: mouth [place] (ESGIC) per 00 every 4 Medic al capsule (four) Branch hours as needed (headache) . acetaminoph Yes [id number] 1{capsu Take 1 Univers en-caff-but 8-01 le} capsule by it y of albital 00:00: mouth [place] (ESGIC) per 00 every 4 Medic al capsule (four) Branch hours as needed (headache) . docusate 0 Yes [id number] 200mg Take 2 U nivers 100 mg 7-28 capsules ity of capsule 00:00: by mouth [place] 00 once daily Medical as needed Branch for Constipati on. ferrous 0 Yes [id number] 325mg Take 1 Un iggy sulfate 325 7-28 tablet by ity of mg (65 mg 00:00: [place] iron[place] 00 the Medical tablet morning. Branch ibuprofen 0 Yes [id number] 600mg Take 1 Univers 600 mg 7-28 tablet by ity of tablet 00:00: mouth [place] 00 every 6 Medical (six) Branch hours as needed (Pain). Take with food or milk. PNV 67-iron 0 Yes [id number] 1{capsu Take 1 Univers ps-folate 7-28 le} capsule by ity of no.1-dha 00:00: mouth [place] (VITAFOL 00 daily. Medical ULTRA) 29 Branch mg iron- 1 mg-200 mg Cap docusate 0 Yes [id number] 200mg Take 2 U nivers 100 mg 7-28 capsules ity of capsule 00:00: by mouth [place] 00 once daily Medical as needed Branch for Constipati on. ferrous 2021-0 Yes [id number] 325mg Take 1 Un iggy sulfate 325 7-28 tablet by ity of mg (65 mg 00:00: [place] iron[place] 00 the Medical tablet morning. Branch ibuprofen 2021-0 Yes [id number] 600mg Take 1 Univers 600 mg 7-28 tablet by ity of tablet 00:00: mouth [place] 00 every 6 Medical (six) Branch hours as needed (Pain). Take with food or milk. PNV 67-iron 2021-0 Yes [id number] 1{capsu Take 1 Univers ps-folate 7-28 le} capsule by ity of no.1-dha 00:00: mouth [place] (VITAFOL 00 daily. Medical ULTRA) 29 Branch mg iron- 1 mg-200 mg Cap docusate Yes [id number] 200mg Take 2 U nivers 100 mg 7-28 capsules ity of capsule 00:00: by mouth [place] 00 once daily Medical as needed Branch for Constipati on. ferrous Yes [id number] 325mg Take 1 Un iggy sulfate 325 7-28 tablet by ity of mg (65 mg 00:00: mouth in [facility] s iron) 00 the Medical tablet morning. Branch ibuprofen Yes [id number] 600mg Take 1 Univers 600 mg 7-28 tablet by ity of tablet 00:00: mouth [place] 00 every 6 Medical (six) Branch hours as needed (Pain). Take with food or milk. PNV 67-iron Yes [id number] 1{capsu Take 1 Univers ps-folate 7-28 le} capsule by ity of no.1-dha 00:00: mouth [place] (VITAFOL 00 daily. Medical ULTRA) 29 Branch mg iron- 1 mg-200 mg Cap Immunizations Ordered Filled Immunization Date Status Comments [facility] e Immunization Name Name Rho (d) Immune 2022-02-26 Completed University of Globulin 00:00:00 [facility] Rho (d) Immune 2022-02-26 Completed University of Globulin 00:00:00 [facility] Rho (d) Immune 2022-02-26 Completed University of Globulin 00:00:00 [facility] Rho (d) Immune 2021-12-12 Completed University of Globulin 00:00:00 [facility] Rho (d) Immune 2021-12-12 Completed University of Globulin 00:00:00 [facility] Rho (d) Immune 2021-12-12 Completed University of Globulin 00:00:00 [facility] TDAP 2021-12-04 Completed University of 00:00:00 [facility] TDAP 2021-12-04 Completed University of 00:00:00 [facility] TDAP 2021-12-04 Completed University of 00:00:00 [facility] Rho (d) Immune 2021 Completed University of Globulin 00:00:00 [facility] Rho (d) Immune 2021 Completed University of Globulin 00:00:00 [facility] Rho (d) Immune 2021 Completed University of Globulin 00:00:00 [facility] Influenza Virus 2021-07-28 Completed Universit y of Vaccine Quad IM, 00:00:00 [place] Me dical Preserv and ABX Branch Free 6 MO-64 YRS Influenza Virus 2021-07-28 Completed Universit y of Vaccine [facility] IM, 00:00:00 [place] Me dical Preserv and ABX Branch Free 6 MO-64 YRS Influenza Virus 2021-07-28 Completed Universit y of Vaccine Quad IM, 00:00:00 [place] Me dical Preserv and ABX Branch Free 6 MO-64 YRS Rho (d) Immune 2020-11-27 Completed University of Globulin 00:00:00 [facility] Rho (d) Immune 2020-11-27 Completed University of Globulin 00:00:00 [facility] Rho (d) Immune 2020-11-27 Completed University of Globulin 00:00:00 [facility] Rho (d) Immune 2020-09-13 Completed University of Globulin 00:00:00 [facility] Rho (d) Immune 2020-09-13 Completed University of Globulin 00:00:00 [facility] Rho (d) Immune 2020-09-13 Completed University of Globulin 00:00:00 [facility] TDAP 2020-09-11 Completed University of 00:00:00 [facility] TDAP 2020-09-11 Completed University of 00:00:00 [facility] TDAP 2020-09-11 Completed University of 00:00:00 [facility] Influenza Virus 2020-06-18 Completed Universit y of Vaccine Quad .5 mL 00:00:00 [facility] IM 6+ MO Branch Influenza Virus 2020-06-18 Completed Universit y of Vaccine [place] .5 mL 00:00:00 [facility] IM 6+ MO Branch Influenza Virus 2020-06-18 Completed Universit y of Vaccine Quad .5 mL 00:00:00 [facility] 6+ MO Branch Rho (d) Immune 2019-01-29 Completed University of Globulin 00:00:00 [facility] Rho (d) Immune 2019-01-29 Completed University of Globulin 00:00:00 [facility] Rho (d) Immune 2019-01-29 Completed University of Globulin 00:00:00 [facility] TDAP (ADACEL) 2018-12-30 Completed University of VACCINE 00:00:00 [facility] TDAP (ADACEL) 2018-12-30 Completed University of VACCINE 00:00:00 [facility] TDAP (ADACEL) 2018-12-30 Completed University of VACCINE 00:00:00 [facility] Influenza Virus 2018-06-22 Completed Universit y of Vaccine Quad .5 mL 00:00:00 [facility] IM 6+ MO Branch Influenza Virus 2018-06-22 Completed Universit y of Vaccine Quad .5 mL 00:00:00 [facility] IM 6+ MO Branch Influenza Virus 2018-06-22 Completed Universit y of Vaccine Quad .5 mL 00:00:00 [facility] IM 6+ MO Branch Rho (d) Immune 2018-06-02 Completed University of Globulin 00:00:00 [facility] Rho (d) Immune 2018-06-02 Completed University of Globulin 00:00:00 [facility] Rho (d) Immune 2018-06-02 Completed University of Globulin 00:00:00 [facility] Vital Signs Vital Name Observation Time Observation Value Comments Source Systolic blood 2022-03-24 19:31:00 121 mm[Hg] Univer sity of pressure [facility] Diastolic blood 2022-03-24 19:31:00 77 mm[Hg] Unive rsity of [facility] Heart rate 2022-03-24 19:31:00 78 /min Universi ty [facility] [place] Body temperature 2022-03-24 19:31:00 37.06 Annika [facility] Body height 2022-03-24 19:31:00 167.6 cm Universi ty [facility] [place] Body weight 2022-03-24 19:31:00 96.888 kg [facility] BMI 2022-03-24 19:31:00 34.48 kg/m2 [facility] Systolic blood 2022-03-04 19:10:00 137 mm[Hg] Univer sity of pressure [facility] Diastolic blood 2022-03-04 19:10:00 80 mm[Hg] Unive rsity of pressure [facility] Heart rate 2022-03-04 19:09:00 91 /min Universi ty [facility] [place] Body temperature 2022-03-04 19:09:00 37.28 Annika [facility] Body height 2022-03-04 19:09:00 167.6 cm Universi ty [facility] [place] Body weight 2022-03-04 19:09:00 96.979 kg Universi [facility] BMI 2022-03-04 19:09:00 34.51 kg/m2 Universi [facility] Systolic blood 2022-03-02 19:34:00 142 mm[facility]Hg[facility] Diastolic blood 2022-03-02 19:34:00 96 mm[facility]Hg] [facility] 2022-03-02 19:33:00 71 /min [facility] Body temperature 2022-03-02 19:33:00 37.06 Annika [facility] Respiratory rate 2022-03-02 19:33:00 19 /min [facility] Body height 2022-03-02 19:33:00 167.6 cm [facility] Body weight 2022-03-02 19:33:00 99.791 kg [facility] BMI 2022-03-02 19:33:00 35.51 kg/m2 [facility] Procedures Procedure Date / Time Performed Performing Clinician Sourc e COMP. METABOLIC PANEL 2022-03-02 20:12:00 Stella Wheeler [facility] ([id number]) [facility] Encounters Start End Encounter Admission Attending Care Care Encounter Source Date/Time Date/Time Type Type Clinicians Facility Department ID 2021-09-20 Outpatient X [facility] [id number] Univers 19:19:16 ity [facility] [place] 2021-06-01 Outpatient P [facility] [id number] Univers 14:01:23 ity [facility] [place] 2021-06-01 Outpatient P [facility] [id number] Univers 13:56:21 ity [facility] [place] 2022-09-28 2022-09-28 Outpatient R STELLA WHEELER KYDENEEN [facility] [id number] Univers 09:30:00 09:30:00 ity [facility] [place] 2022-03-24 2022-03-24 Outpatient R STELLA WHEELER KYDENEEN [facility] [id number] Univers 14:15:00 15:03:40 ity [facility] [place] 2022-03-24 2022-03-24 Routine Stella Wheeler KYDENEEN [id number] Univers 14:15:00 15:03:40 Cam [place] [id number] ity of [place] 4[place]2.[place] [id number] [facility] [address] [facility] 2022-03-04 2022-03-04 Routine Liam [facility] [id number] Univers 14:00:00 14:15:00 Cam [place] [id number] ity of [place] 4[place]2.[place].2.[place] [id number] [address] 2022-03-04 2022-03-04 Outpatient R LIAM STELLA [facility] [id number] Univers 14:00:00 14:00:00 ity of [facility] 2022-03-02 2022-03-02 Application Development Liaison 2, Adc Lab [facility] [id number] Univers 14:45:00 15:00:00 Visit Stella WheelerTON [id number] ity of [place] 4[place]2.[place].2.[place] [id number] [address] 2022-03-02 2022-03-02 Outpatient R STELLA WHEELER [facility] [id number] Univers 13:45:00 14:57:40 ity of [facility] 2022-03-02 2022-03-02 Routine Liam [facility] [id number] Univers 13:45:00 14:57:40 Cam [place] [id number] ity of Visit [place] 4[place].2.[place] [id number] [address] 2022-03-02 2022-03-02 Outpatient R LIAM STELLA [facility] [id number] Univers 14:00:00 14:00:00 ity of [facility] 2022-02-24 2022-02-26 [facility] [id number] Univers 13:41:00 15:00:00 MEAGAN ity of [facility] 2022-02-24 2022-02-26 [facility] Stella Wheeler [facility] [id number] Univers 13:41:00 15:00:00 Encounter Johnkris, Meagan Muñoz DELL [id number] ity of [facility] 4.2.7.2.686 [facility] [id number] [address] 2022-02-26 2022-02-26 Outpatient R STELLA WHEELER [facility] [id number] Univers 13:00:00 13:00:00 ity [facility] [place] 2022-02-25 2022-02-25 [facility] [id number] Univers 01:43:00 07:18:00 Event Frank Bates DELL [id number] ity of [place] 4.2.7.2.686 [facility] [id number] [address] 2022-02-24 2022-02-24 [facility] [id number] Univers 21:59:05 21:59:05 Event Frank Bates DELL [id number] ity of [facility] 4.2.7.2.686 [facility] [id number] [address] 2022-02-24 2022-02-24 Application Development Liaison Ultrasound, [facility] 1.2 .840.114 [id number] Univers 08:30:00 09:00:00 Visit Ortega Sommer 350.1 .13.10 ity of [facility] 4.2.7.2.686 [facility] PROFESSIO [id number] Il dical [facility] 134 Branch [facility] 2022-02-24 2022-02-24 Outpatient P HARRISON [facility] [id number] Univers 08:30:00 08:30:00 OSEI it y of Paulo VIVAS [facility] 2022-02-24 2022-02-24 Orders Doctor ULLOA 1.2.840.114 [id number] Univers 00:00:00 00:00:00 Only Unassigned, BRIANNA 350.1.13.10 ity of [facility] 4.2.7.2.686 Ralf as [id number] [facility] 009 [place] 2022-02-19 2022-02-19 Outpatient R STELLA WHEELER [facility] [id number] Univers 13:00:00 14:16:03 ity of [facility] 2022-02-19 2022-02-19 Routine Stella Wheeler [facility] [id number] Univers 13:00:00 14:16:03 Cam [place] 350.1.13.10 ity of [place] [id number] Il dical NAL [address] [place] [address] 2022-02-13 2022-02-13 Routine Khushboo Mcgovern [facility] 1.2.840.114 [id number] Univers 16:00:00 16:00:00 [place] 350.1.13.10 ity of [place] 4[place]2.[place] [id number] Il dical NAL [address] [place] [address] 2022-02-13 2022-02-13 Outpatient X STELLA WHEELER [facility] [id number] Univers 11:27:00 14:20:00 ity of [facility] 2022-02-13 2022-02-13 Emergency AmyJm Lorenza [facility] 1.2.840. 114 [id number] Univers 11:27:00 14:20:00 Khushboo Mcgovern 350.1.13.10 ity of Stella Wheeler [place] 4.2.7.2.686 [facility] [id number] [facility] 083 [place] 2022-02-13 2022-02-13 Outpatient R KHUSHBOO MCGOVERN [facility] [id number] Univers 16:00:00 11:06:42 ity of [facility] 2022-02-13 2022-02-13 Telephone Stella Wheeler [facility] 1.2.840.114 [id number] Univers 00:00:00 00:00:00 Cam [place] 350.1.13.10 i ty of [place] 4[place] [id number] Il dical NAL [address] [facility] 2022-02-13 2022-02-13 Orders Doctor ULLOA 1.2.840.114 [id number] Univers 00:00:00 00:00:00 Only Unassigned, BRIANNA 350.1.13.10 ity of [place] [facility] 4.2.7.2.686 Ralf as [id number] [address] 2022-02-12 2022-02-12 Outpatient R LIAM STELLA [facility] [id number] Univers 08:45:00 09:28:41 ity of [facility] 2022-02-12 2022-02-12 Routine Liam [facility] [id number] Univers 08:45:00 09:28:41 [place] SHAR[place] 350.1.13.10 ity of [place] 4[place] [id number] Il dical NAL [address] [place] [address] 2022-02-12 2022-02-12 Outpatient R LIAM STELLA [facility] [id number] Univers 08:45:00 08:45:00 ity of [facility] 2022-02-05 2022-02-05 Application Development Liaison 2, [facility] Lab [facility] 1.2.840.114 [id number] Univers 10:00:00 10:15:00 Visit Angela Escoto 350.1.13.10 ity of [place] 4[place] [id number] Il dical [facility] [address] [facility] 2022-02-05 2022-02-05 Outpatient R JEVON [facility] [id number] Univers 08:45:00 09:32:56 ANGELA ity [facility] [place] 2022-02-05 2022-02-05 Routine Jevon [facility] [id number] Univers 08:45:00 09:32:56 Angela SHARPE 350.1.13.10 ity of [place] 4[place].2.[place] [id number] Il dical NAL [address] [place] [address] 2022-02-05 2022-02-05 Orders Doctor LAILA 1.2.840.114 [id number] Univers 00:00:00 00:00:00 Only Unassigned, BRIANNA 350.1.13.10 ity of [place] [facility] 4.2.7.2.686 Ralf as [id number] [address] 2022-01-30 2022-01-30 Outpatient R BELLO [facility] [id number] Univers 08:15:00 08:59:51 MEAGAN ity of [facility] 2022-01-30 2022-01-30 [facility] 1.2.840.114 [id number] Univers 08:15:00 08:59:51 Meagan [place] 350.1.13.10 ity of [place] 4[place] [id number] [address] 2022-01-28 2022-01-28 Telephone Stella Wheeler [facility] 1.2.840.114 [id number] Univers 00:00:00 00:00:00 [place] SHAR[place] 350.1.13.10 i ty of [place] 4[place] [id number] [place] dic[address] 2022-01-27 2022-01-27 Application Development Liaison Ultrasound, [facility] 1.2 .840.114 [id number] Univers 08:30:00 09:00:00 Visit Ortega Sommer 350.1 .13.10 ity of [place] 4[place]2.[place].2.[place] [id number] [place] dic[address] 2022-01-27 2022-01-27 Outpatient P HARRISON [facility] [id number] Univers 08:30:00 08:30:00 OSEI it y of ORTEGA Bates [facility] 2022-01-22 2022-01-22 Outpatient R STELLA WHEELER [facility] [id number] Univers 08:45:00 09:35:54 ity of [facility] 2022-01-22 2022-01-22 Routine Liam [facility] [id number] Univers 08:45:00 09:35:54 Cam [place] 350.1.13.10 ity of [place] 4[place].2.[place] [id number] Il dical [address] 2022-01-13 2022-01-13 Outpatient R JEVON [facility] [id number] Univers 08:45:00 08:45:00 ANGELA ity [facility] [place] 2022-01-09 2022-01-09 Outpatient R KHUSHBOO MCGOVERN [facility] [id number] Univers 15:30:00 15:38:41 ity of [facility] 2022-01-09 2022-01-09 Routine Froilan Khushboo [facility] 1.2.840.114 [id number] Univers 15:30:00 15:38:41 [place] 350.1.13.10 ity of [place] 4[place] [id number] [address] 2022-01-08 2022-01-08 Outpatient R JEVON [facility] [id number] Univers 08:15:00 08:15:00 [facility] 2022-01-06 2022-01-06 Outpatient P [facility] [id number] Univers 14:15:00 14:15:00 ity of [facility] 2021-12-25 2021-12-25 Outpatient R STELLA WHEELER [facility] [id number] Univers 08:15:00 08:50:32 ity of [facility] 2021-12-25 2021-12-25 Routine Liam Stella [facility] [id number] Univers 08:15:00 08:50:32 Cam [place] 350.1.13.10 ity of [place] [id number] [address] 2021-12-23 2021-12-23 Application Development Liaison Ultrasound, Adc [facility] 1.2 .840.114 [id number] Univers 14:00:00 14:30:00 Visit Ortega SommerTON 350.1 .13.10 ity of [facility] 4.2.[place].2.[place] [id number] Il dical NAL [address] [place] [address] 2021-12-23 2021-12-23 Outpatient P HARRISON [facility] [id number] Univers 14:00:00 14:00:00 OSEI it y of ORTEGA Bates [facility] 2021-12-12 2021-12-12 Outpatient R STELLA WHEELER [facility] [id number] Univers 08:00:00 08:16:05 ity of [facility] 2021-12-12 2021-12-12 Nurse Nurse, [facility] [facility] 1.2.840.114 [id number] Univers 08:00:00 08:16:05 Visit Stella Wheeler Duncan SHARPE 350.1.13.10 ity of [place] [phone] Il dical NAL [address] [place] [address] 2021-12-09 2021-12-09 [facility] 1.2.840.114 [id number] Univers 00:00:00 00:00:00 Duncan SHARPE 350.1.13.10 i ty [facility] [place] [phone] Il dical NAL [address] [place] [address] 2021-12-04 2021-12-04 Outpatient R MOHAMUD WHEELEREN [facility] [id number] Univers 11:15:00 11:48:04 ity of [facility] 2021-12-04 2021-12-04 Routine Angela Escoto [facility] 1.2.840.11 [id number] Univers 11:15:00 11:48:04 Stella Wheeler Duncan SHARPE 350.1.13.10 ity of Visit [place] [phone] Il dical NAL [address] [place] [address] 2021-12-04 2021-12-04 Application Development Liaison 2, [facility] Lab [facility] 1.2.840.114 [id number] Univers 09:00:00 09:15:00 Visit Stella Wheeler 350.1.13.10 ity of [place] [phone] Il dicco LOLI 353 [facility] 2021-12-04 2021-12-04 Telephone Stella Wheeler [facility] 1.2.840.114 [id number] Univers 00:00:00 00:00:00 Cam [place] 350.1.13.10 i ty of [place] [phone] [facility] 2021-11-28 2021-11-28 Telephone Stella Wheeler [facility] 1.2.840.114 [id number] Univers 00:00:00 00:00:00 Cam [place] 350.1.13.10 i ty of [place] [phone] [address] 2021-11-18 2021-11-18 Application Development Liaison Ultrasound, Adc [facility] 1.2 .840.114 [id number] Univers 10:30:00 11:15:00 Visit Harrison GrahamOrtega 350.1 .13.10 ity of [place] [phone] [address] 2021-11-18 2021-11-18 Outpatient P HARRISON [facility] [id number] Univers 10:30:00 10:30:00 OSEI it y of [place] Bates [facility] 2021-11-11 2021-11-11 Refill Liam Stella [facility] 1.2.426.719 [id number] Univers 00:00:00 00:00:00 Duncan [place] 350.1.13.10 i ty of [place] [phone] [address] 2021-11-05 2021-11-05 Outpatient George ESCOTO [facility] [id number] Univers 10:30:00 10:46:08 ANGELA azul [facility] 2021-11-05 2021-11-05 Routine Jevon [facility] 1.2.050.887 [id number] Univers 10:30:00 10:46:08 Angela SHARPE 350.1.13.10 ity of [place] [phone] Il dical NAL [address] [place] [address] 2021-10-21 2021-10-21 Application Development Liaison Ultrasound, Adc [facility] 1.2 .840.114 [id number] Univers 09:00:00 10:04:17 Visit Ortega Sommer 350.1 .13.10 ity of [place] [phone] Il dical NAL [address] [place] [address] 2021-10-21 2021-10-21 Outpatient P [facility] [id number] Univers 09:00:00 09:00:00 ity of [facility] 2021-10-21 2021-10-21 Outpatient P HARRISON [facility] [id number] Univers 09:00:00 09:00:00 OSEI it y of [place] [facility] 2021-10-08 2021-10-08 Outpatient R LIAM STELLA [facility] [id number] Univers 11:15:00 12:05:15 ity of [facility] 2021-10-08 2021-10-08 Routine Liam [facility] 1.2.788.098 [id number] Univers 11:15:00 12:05:15 Duncan CAR[place] 350.1.13.10 ity of Visit [place] [phone] Il dical NAL [address] [place] [address] 2021-10-08 2021-10-08 Outpatient R LIAM STELLA [facility] [id number] Univers 11:15:00 11:15:00 ity of [facility] 2021-09-25 2021-09-25 Routine Liam [facility] 1.2.856.537 [id number] Univers 14:45:00 15:00:00 Cam [place] 350.1.13.10 ity of [place] [phone] Il dical NAL 134 [facility] 2021-09-25 2021-09-25 Outpatient R STELLA WHEELER [facility] [id number] Univers 14:45:00 14:45:00 ity [facility] 2021 2021-09-20 Outpatient X ADUM, [facility] WADE [id number] Univers 16:42:00 17:55:00 MEAGAN ity [facility] 2021 2021-09-20 [facility] 1.2.619.906 [id number] Univers 16:42:00 17:55:00 Meagan SHARPE 350.1.13.10 it[place] of [place] [phone] [address] 2021 2021 Telephone Stella Wheeler [facility] 1.2.840.114 [id number] Univers 00:00:00 00:00:00 Duncan SHARPE 350.1.13.10 i ty of [place] [phone] Il dical NAL 134 [facility] 2021 2021 Telephone Stella Wheeler [facility] 1.2.840.114 [id number] Univers 00:00:00 00:00:00 Cam [place] 350.1.13.10 i ty of [place] [phone] Il dical NAL 134 [facility] 2021-09-10 2021-09-10 Application Development Liaison Oswaldo, Elia Lab Main [facility] 1.2.8 40.114 [id number] Univers 11:00:00 11:15:00 Visit Angela Escoto 350.1.13.10 ity of [place] [phone] Il dical NAL 353 [facility] 2021-09-10 2021-09-10 Outpatient R JEVON [facility] [id number] Univers 10:15:00 10:15:00 ANGELA azul [facility] 2021-09-10 2021-09-10 Outpatient R JEVON [facility] [id number] Univers 10:00:00 10:11:08 ANGELA azul [facility] 2021-09-10 2021-09-10 [facility] 1.2.546.178 [id number] Univers 10:00:00 10:11:08 Angela SHARPE 350.1.13.10 ity of [place] [phone] Il dic[address] 2021-09-10 2021-09-10 Orders Doctor LAILA 1.2.840.114 [id number] Univers 00:00:00 00:00:00 Only Unassigned, BRIANNA 350.1.13.10 ity of [place] [facility] 4.2.7.2.686 Ralf as [phone] [address] 2021-09-02 2021-09-02 Telephone Stella Wheleer [facility] 1.2.840.114 [id number] Univers 00:00:00 00:00:00 Cam DELL 350.1.13.10 i ty of [place] [phone] [address] 2021-09-01 2021-09-01 Outpatient R JEVON [facility] [id number] Univers 11:00:00 11:00:00 ANGELA latha [facility] 2021-08-22 2021-08-22 Outpatient R BELLO [facility] [id number] Univers 09:00:00 09:00:00 MEAGAN latha [facility] 2021-08-04 2021-08-04 Outpatient R STELLA WHEELER [facility] [id number] Univers 08:30:00 09:09:40 ity of [facility] 2021-08-04 2021-08-04 Initial Stella Wheeler [facility] 1.2.228.821 [id number] Univers 08:30:00 09:09:40 Cam [place] 350.1.13.10 ity of [place] [phone] Il dical NAL 134 [facility] 2021-07-28 2021-07-28 Outpatient R JEVON [facility] [id number] Univers 11:15:00 11:15:00 ANGELA latha [facility] 2021-07-28 2021-07-28 Application Development Liaison 2, Adc Lab [facility] 1.2.840.114 [id number] Univers 11:15:00 11:15:00 Visit Angela Escoto 350.1.13.10 ity of [place] [phone] Il dical NAL 353 [facility] 2021-07-28 2021-07-28 Outpatient R JEVON [facility] [id number] Univers 09:45:00 10:18:04 ANGELA itrebecca [facility] 2021-07-28 2021-07-28 Office Jevon [facility] 1.2.868.578 [id number] Univers 09:45:00 10:18:04 Visit Angela SHARPE 350.1.13.10 i ty [facility] 4[place].2.[place] [phone] Il dical NAL 134 [facility] 2021-07-28 2021-07-28 Orders Doctor LAILA 1.2.840.114 [id number] Univers 00:00:00 00:00:00 Only Unassigned, BRIANNA 350.1.13.10 [facility] 4.2.7.2.686 Ralf as [phone] [address] 2021-06-30 2021-06-30 Outpatient George ESCOTO [facility] [id number] Univers 10:30:00 10:30:00 ANGELA azul [facility] 2021-05-07 2021-05-07 Outpatient R JEVON [facility] [id number] Univers 11:45:00 11:45:00 ANGELA azul [facility] 2021-05-07 2021-05-07 Telemedici Jevon [facility] 1.2.840.114 [id number] Univers 11:04:25 11:19:25 ne Visit Angela Sharpe 350.1.13.10 ity of [place] [phone] [address] 2021-04-09 2021-04-09 Outpatient R JEVON [facility] [id number] Univers 11:45:00 11:45:00 ANGELA azul [facility] 2021-04-09 2021-04-09 [facility]ic [facility] 1.2.840.114 [id number] [facility] 11:24:27 11:39:27 ne Visit Angela Sharpe 350.1.13.10 ity of [place] [phone] [address] 2021-03-12 2021-03-12 [facility] 1.2.840.114 [id number] [facility] 10:20:35 12:11:47 ne Visit Angela Sharpe 350.1.13.10 ity of [place] [phone] [address] 2021-03-12 2021-03-12 Outpatient R JEVON [facility] [id number] Univers 11:45:00 11:45:00 ANGELA azul [facility] 2021-01-28 2021-01-28 Outpatient R JEVON [facility] [id number] Univers 11:45:00 11:45:00 ANGELA azul [facility] 2021-01-27 2021-01-27 Outpatient R JEVON [facility] [id number] Univers 14:30:00 14:30:00 ANGELA azul [facility] 2020-12-26 2020-12-26 Routine Jevon [facility] 1.2.592.415 [id number] Univers 10:34:29 10:49:29 Angela Sharpe 350.1.13.10 ity of [place] Profess[place] [phone] [address] 2020-12-26 2020-12-26 Outpatient R JEVON [facility] [id number] Univers 10:45:00 10:45:00 ANGELA [facility] 2020-12-24 2020-12-24 Outpatient R NALLELYMADIHA [facility] [id number] Univers 08:00:00 08:00:00 ANGELA itrebecca [facility] 2020-11-26 2020-11-27 Hospital Stella Wheeler [facility] 1.2.840.114 [id number] Univers 04:00:00 16:00:00 Encounter Duncan [place]pe 350.1.13.10 ity of [place] [phone] [facility] [address] [place] 2020-11-26 2020-11-26 [id number] Univers 11:30:00 11:30:00 [facility] 2020-11-26 2020-11-26 Orders Doctor LAILA 1.2.840.114 [id number] Univers 00:00:00 00:00:00 Only Unassigned, BRIANNA 350.1.13.10 ity of [place] [facility] 4.2.7.2.686 Ralf as [phone] [facility] [address] [place] 2020-11-25 2020-11-25 Laboratory Only, [facility] Test [facility] 1.2.840. 114 [id number] Univers 11:19:27 11:34:27 Only Stella Wheeler 350.1.13.10 ity of [place] [phone] [facility] [address] 2020-11-25 2020-11-25 Routine Room, [facility] Nst [facility] 1.2.840.1 14 [id number] Univers 09:55:48 10:55:14 Stella Wheeler 350.1.13.10 ity of [place] [phone] Il dical nal 134 [facility] 2020-11-25 2020-11-25 Outpatient R [facility] [id number] Univers 10:00:00 10:00:00 ity of [facility] 2020-11-25 2020-11-25 Orders Doctor LAILA 1.2.840.114 [id number] Univers 00:00:00 00:00:00 Only Unassigned, BRIANNA 350.1.13.10 ity of [place] [facility] 4.2.7.2.686 Ralf as [phone] [facility] [address] 2020-11-21 2020-11-21 Routine Room, [facility] 1.2.840.1 14 [id number] Univers 10:44:50 11:34:35 Stella Wheeler Cam [place] 350.1.13.10 ity of [place] [phone] Il dical nal 134 [facility] 2020-11-21 2020-11-21 Outpatient R LIAM STELLA [facility] [id number] Univers 11:00:00 11:00:00 ity of [facility] 2020-11-18 2020-11-19 Hospital Liam Stella [facility] 1.2.840.114 [id number] Univers 18:24:00 09:10:00 Encounter Cam [place] 350.1.13.10 ity of [place] [phone] [facility] [address] [place] 2020-11-18 2020-11-18 Routine Stella Wheeler [facility] 1.2.449.911 [id number] Univers 14:47:49 15:49:02 Cam [place] 350.1.13.10 ity of [place] [phone] Il dical nal 134 [facility] 2020-11-18 2020-11-18 Outpatient R LIAM STELLA [facility] [id number] Univers 14:45:00 14:45:00 ity of [facility] 2020-11-18 2020-11-18 Telephone Stella Wheeler [facility] 1.2.840.114 [id number] Univers 00:00:00 00:00:00 Cam [place] 350.1.13.10 i ty of [place] [phone] Il dical nal 134 [facility] 2020-11-11 2020-11-11 Application Development Liaison 2, Adc Lab [facility] 1.2.840.114 [id number] Univers 13:16:08 13:31:08 Visit Angela Escoto 350.1.13.10 ity of [place] [phone] Il dical nal 353 [facility] 2020-11-11 2020-11-11 Routine Jevon [facility] 1.2.027.693 [id number] Univers 11:24:40 12:22:36 Angela Sharpe 350.1.13.10 ity of [place] [phone] Il dical nal 134 [facility] 2020-11-11 2020-11-11 Outpatient R JEVON [facility] [id number] Univers 11:30:00 11:30:00 ANGELA ity [facility] 2020-11-11 2020-11-11 Orders Doctor LAILA 1.2.840.114 [id number] Univers 00:00:00 00:00:00 Only Unassigned, BRIANNA 350.1.13.10 ity of [place] [facility] 4.2.7.2.686 Ralf as [phone] [address] 2020-10-31 2020-10-31 Outpatient R JEVON [facility] [id number] Univers 11:15:00 11:15:00 ANGELA itrebecca [facility] 2020-10-17 2020-10-17 Routine Stella Wheeler [facility] 1.2.497.871 [id number] Univers 10:57:52 11:35:04 Duncan Shar[place] 350.1.13.10 ity of [place] [phone] Il dical nal 134 [facility] 2020-10-17 2020-10-17 Outpatient R STELLA WHEELER [facility] [id number] Univers 11:15:00 11:15:00 ity of [facility] 2020-10-10 2020-10-10 Outpatient R STELLA WHEELER [facility] [id number] Univers 13:45:00 13:45:00 ity of [facility] 2020-09-25 2020-09-25 Routine Angela Escoto [facility] 1.2.840.11 [id number] Univers 13:55:51 14:10:51 Stella Wheeler 350.1.13.10 ity of [place] [phone] Il dical nal 134 [facility] 2020-09-25 2020-09-25 Outpatient R STELLA HWEELER [facility] [id number] Univers 14:00:00 14:00:00 ity of [facility] 2020-09-13 2020-09-13 Nurse Nurse, [facility] 1.2.840.114 [id number] Univers 07:57:48 08:45:54 Visit Stella Wheeler 350.1.13.10 ity of [place] [phone] Il dical nal 134 [facility] 2020-09-13 2020-09-13 Outpatient R [facility] [id number] Univers 08:00:00 08:00:00 ity of [facility] 2020-09-12 2020-09-12 Application Development Liaison 2, [facility] Lab [facility] 1.2.840.114 [id number] Univers 10:09:26 10:24:26 Visit Stella Wheeler [place] 350.1.13.10 ity of [place].2.[place] [phone] Il dical nal 353 [facility] 2020-09-12 2020-09-12 Outpatient R [facility] [id number] Univers 10:15:00 10:15:00 ity of [facility] 2020-09-11 2020-09-11 Routine Jevon [facility] 1.2.646.259 [id number] Univers 15:56:47 16:11:47 Angela Sharpe 350.1.13.10 ity of [place] [phone] [address] 2020-09-11 2020-09-11 Outpatient R JEVON [facility] [id number] Univers 16:00:00 16:00:00 ANGELA ity [facility] 2020-08-14 2020-08-14 Application Development Liaison Ultrasound, [facility] 1.2 .840.114 [id number] Univers 12:53:32 13:25:02 Visit Nano Stroud [employer] 350.1.13.10 ity of [facility] 4.2.7.2.686 Ralf as MATERNAL [phone] [facility] [address] [place] [address] 2020-08-14 2020-08-14 Outpatient P [facility] [id number] Univers 13:00:00 13:00:00 ity [facility] 2020-07-18 2020-07-18 Routine Liam [facility] 1.2.475.239 [id number] Univers 15:50:18 16:58:13 Duncan [place] 350.1.13.10 ity of [place] [phone] [address] 2020-07-18 2020-07-18 Outpatient R LIAM [facility] [id number] Univers 15:45:00 15:45:00 ity [facility] 2020-07-17 2020-07-17 Application Development Liaison Ultrasound, [facility] 1.2 .840.114 [id number] Univers 09:04:59 10:04:59 Visit Jacqui Esposito [employer] 350.1.13.10 ity of [facility] 4.2.7.2.686 Ralf as MATERNAL [phone] [facility] & [address] 2020-07-17 2020-07-17 Outpatient P [facility] [id number] Univers 09:30:00 09:30:00 ity [facility] 2020-07-16 2020-07-16 Outpatient R WHEELER, [facility] [id number] Univers 15:45:00 15:45:00 ity of [facility] 2020-06-18 2020-06-18 Application Development Liaison 2, Adc Lab [facility] 1.2.840.114 [id number] Univers 15:08:41 15:23:41 Visit Angela Escoto 350.1.13.10 ity of [place] [phone] Il dical [facility] 353 [facility] 2020-06-18 2020-06-18 Routine Jevon [facility] 1.2.081.404 [id number] Univers 13:51:43 14:52:35 Angela Sharpe 350.1.13.10 ity of [place] [phone] Il dical [facility] 134 [facility] 2020-06-18 2020-06-18 Outpatient R JEVON [facility] [id number] Univers 14:30:00 14:30:00 ANGELA ity of [facility] 2020-06-14 2020-06-14 Telephone Stella Wheeler [facility] 1.2.840.114 [id number] Univers 00:00:00 00:00:00 Duncan Sharpe 350.1.13.10 i ty of [place] [phone] Il dic[address] 2020-06-03 2020-06-03 Outpatient R [facility] [id number] Univers 10:30:00 10:30:00 ity of [facility] 2020-06-01 2020-06-01 Outpatient R [facility] [id number] Univers 09:00:00 09:00:00 ity of [facility] 2020-05-30 2020-05-30 Outpatient R [facility] [id number] Univers 16:00:00 16:00:00 ity of [facility] 2020-05-21 2020-05-29 Initial WheelerMohamuden [facility] 1.2.735.046 [id number] Univers 14:22:34 15:36:37 Duncan Sharpe 350.1.13.10 ity of [place] [phone] Il dical nal 134 [facility] 2020-05-29 2020-05-29 Telephone Stella Wheeler [facility] 1.2.840.114 [id number] Univers 00:00:00 00:00:00 Cam [place] 350.1.13.10 i ty of [place] [phone] Il dical nal 134 [facility] 2020-05-23 2020-05-23 Telephone Stella Wheeler [facility] 1.2.840.114 [id number] Univers 00:00:00 00:00:00 Cam [place] 350.1.13.10 i ty of [place] [phone] Il dical nal 134 [facility] 2020-05-21 2020-05-21 Application Development Liaison 2, Adc Lab [facility] 1.2.840.114 [id number] Univers 16:02:06 16:17:06 Visit Stella Wheeler 350.1.13.10 ity of [place] [phone] Il dicmilli hitchcock 353 [facility] 2020-05-21 2020-05-21 Outpatient R STELLA WHEELER [facility] [id number] Univers 14:30:00 14:30:00 ity of [facility] 2020-05-21 2020-05-21 Orders Doctor LAILA 1.2.840.114 [id number] Univers 00:00:00 00:00:00 Only Unassigned, BRIANNA 350.1.13.10 ity of [place] [facility] 4.2.7.2.686 Ralf as [phone] [address] Results Test Description Test Time Test Comments Results Result Comments Source COMP. METABOLIC PANEL (04804) 2022-03-02 21:17:55 Test Item Value Reference Range Interpretation Comme nts NA (test code = 8495485020) 138 mmol/L 135-145 K (test code = 0628534091) 4.4 mmol/L 3.5-5 CL (test code = 1880297794) 105 mmol/L 98-108 CO2 TOTAL (test code = 9344183872) 24 mmol/L 23-31 AGAP (test code = 9454597917) 2-16 BUN (test code = 2584737660) 11 mg/dL 7-23 GLUCOSE (test code = 5446941774) 83 mg/dL 70-110 CREATININE (test code = 0.65 mg/dL 0.5-1.04 6184871804) TOTAL BILI (test code = 0.3 mg/dL 0.1-1.1 6081290256) CALCIUM (test code = 9913197841) 8.8 mg/dL 8.6-10.6 T PROTEIN (test code = 2420487674) 6.1 g/dL 6.3-8.2 L ALBUMIN (test code = 4382568433) 3.4 g/dL 3.5-5 L ALK PHOS (test code = 4596639280) 95 U/L 34-122 ALTv (test code = 1742-6) 26 U/L 5-35 AST(SGOT) (test code = 1126069312) 19 U/L 13-40 eGFR (test code = 1619808087) mL/min/1.73m2 ASA (test code = ASA) Association [...] tests). Lab Interpretation (test code = Abnormal 29728-7) [facility]00 Test Item Value Reference Range Interpretation [...]
[2023-02-16 17:48] LABS: Specific Gravity 1.016 (1.005-1.030)
[2023-02-16 17:53] LABS: Albumin 3.7 g/dL (3.4-5.0); Bilirubin Total 0.5 mg/dL (0.2-1.0); Potassium 3.9 mEq/L (3.5-5.1); Protein, Total 7.2 g/dL (6.4-8.2)
[2023-02-16 17:55] LABS: Hematocrit 43.9 % (36.0-45.0); Lymphocytes % 26.4 % (15.3-44.8); MCV 89.7 fL (80-100); MPV 10.8 fL (7.6-11.3)
[2023-02-16 17:59] LABS: Specific Gravity 1.016 (1.005-1.030); Urine Bacteria 20-50 /HPF (<20); Urine Bilirubin NEGATIVE (Negative); Urine Blood Negative (Negative); Urine Clarity Extremely Turbid (Clear); Urine Color Light-Yellow (Yellow); Urine Glucose NEGATIVE (Negative); Urine Protein NEGATIVE (Negative); Urine RBC <5 /HPF (None Seen); Urine Urobilinogen 1+ (Normal); Urine pH 7.5 (5.0-7.0)
--- NOTE | 2023-02-16 19:07 | RAD REPORT ---
EXAM DESCRIPTION: CTAbdomen Pelvis W Contrast - 02/16/2023 6:57 pm CLINICAL HISTORY: Abdominal pain. ABD PAIN COMPARISON: <Comparisons> TECHNIQUE: Biphasic CT imaging of the abdomen and pelvis was performed with 100 ml non-ionic IV cont rast. All CT scans are performed using dose optimization technique as appropriate and may include automated exposure control or mA/KV adjustment according to patient size. FINDINGS: The lung bases are clear. Cholecystectomy. The liver, spleen, pancreas, adrenal glands and kidneys are within normal limits. No bowel obstruction, free air, free fluid or abscess. The appendix is normal. No evidence of signi ficant lymphadenopathy. No suspicious bony findings. IMPRESSION: No acute intra-abdominal or pelvic finding.
--- NOTE | 2023-02-16 19:22 | ER ---
Nurse's Notes [facility]ly [facility] Name: Verenice Ovalle Age: 32 yrs Sex: Female : 1990 Arrival Date: 02/16/2023 Time: 16:54 Bed 10 Private MD: Diagnosis: Strain of muscle, fascia and tendon of abdomen Presentation: 02/16 17:05 Chief complaint: Patient states: abd pain that has gotten gradually worse over the last aa5 week, pt states "every movement I do makes my stomach hurt". Pt denies nausea/vomiting, reports some diarrhea. Coronavirus screen: diarrhea. Ebola Screen: Patient denies travel to an Ebola-affected area in the 21 days before illness onset. Initial Sepsis Screen: Does the patient meet any 2 criteria? HR > 90 bpm. Does the patient have a suspected source of infection? No. Patient's initial sepsis screen is negative. Risk Assessment: Do you want to hurt yourself or someone else? Patient reports no desire to harm self or others. Onset of symptoms was January 2023. 17:05 Acuity: YUDI 3 aa5 17:05 Method Of Arrival: Ambulatory aa5 SITE SPECIALIST: 17:08 LMP N/A - Irregular menses aa5 Historical: - Allergies: 17:07 PENICILLINS; aa5 - Home Meds: 17:07 None [Active]; aa5 - PMHx: 17:07 None; aa5 - PSHx: 17:08 Cholecystectomy November 2022; aa5 - Immunization history:: Adult Immunizations unknown. - Social history:: Smoking status: Reported history of juuling and/or vaping. Screenin:15 [facility] ED Fall Risk Assessment (Adult) History of falling in the last 3 months, kc6 including since admission No falls in past 3 months (0 pts) Confusion or Disorientation No (0 pts) Intoxicated or Sedated No (0 pts) Impaired Gait No (0 pts) Mobility Assist Device Used No (0 pt) Altered Elimination No (0 pt) Score/Fall Risk Level 0 - 2 = Low Risk Oriented to surroundings, Maintained a safe environment, Educated pt \\T\\ family on fall prevention, incl call for assistance when getting out of bed, Assessed \\T\\ reinforced patient's understanding of fall precautions, Hourly rounding (assess needs \\T\\ fall precautionary measures) done. Abuse screen: Denies threats or abuse. Denies injuries from another. Nutritional screening: No deficits noted. Tuberculosis screening: No symptoms or risk factors identified. Assessment: 17:15 General: Appears in no apparent distress. comfortable, Behavior is calm, cooperative, kc6 appropriate for age. Pain: Complains of pain in right upper quadrant and right lower quadrant. Neuro: Level of Consciousness is awake, alert, obeys commands, Oriented to person, place, time, situation, Appropriate for age. Cardiovascular: Capillary refill < 3 seconds. Respiratory: Airway is patent Trachea midline Respiratory effort is even, unlabored, Respiratory pattern is regular, symmetrical. GI: Abdomen is flat, non-distended, Bowel sounds present X 4 quads. Abd is soft X 4 quads Abdomen is tender to palpation in right upper quadrant and right lower quadrant Reports diarrhea, Patient currently denies nausea, vomiting. : No signs and/or symptoms were reported regarding the genitourinary system. EENT: No signs and/or symptoms were reported regarding the EENT system. Derm: No signs and/or symptoms reported regarding the dermatologic system. Skin is intact, is healthy with good turgor, Skin is pink, warm \\T\\ dry. Musculoskeletal: No signs and/or symptoms reported regarding the musculoskeletal system. Circulation, motion, and sensation intact. Capillary refill < 3 seconds, Range of motion: intact in all extremities. 18:15 Reassessment: Patient appears in no apparent distress at this time. No changes from kc6 previously documented assessment. Patient and/or family updated on plan of care and expected duration. Pain level reassessed. Patient is alert, oriented x 3, equal unlabored respirations, skin warm/dry/pink. 19:32 Reassessment: Patient and/or family updated on plan of care and expected duration. Pain ha1 level reassessed. Patient is alert, oriented x 3, equal unlabored respirations, skin warm/dry/pink. Vital Signs: 17:05 BP 144 / 104; Pulse 93; Resp 16 S; Temp 97.7(TE); Pulse Ox 100% on R/A; Weight 88.45 kg aa5 (R); Height 5 ft. 6 in. (R); 18:43 BP 142 / 85; Pulse 91; Resp 17 S; Pulse Ox 100% on R/A; kc6 19:32 BP 140 / 80; Pulse 89; Resp 18 S; Pulse Ox 99% on R/A; ha1 17:05 Body Mass Index 31.47 (88.45 kg, 167.64 cm) aa5 ED Course: 16:56 Patient arrived in ED. am2 16:58 Radha Mcginnis PA-C is PHCP. sb4 16:58 Patric Martinez MD is Attending Physician. sb4 16:58 Attending Physician role handed off by Patric Martinez MD kdr 16:58 Kenrcik Main MD is Attending Physician. kdr 17:05 Arm band placed on. aa5 17:07 Triage completed. aa5 17:13 Anya Jimenez, RAAD is Primary Nurse. kc6 17:15 Patient has correct armband on for positive identification. Bed in low position. Call kc6 light in reach. Side rails up X 1. 17:29 Inserted saline lock: 20 gauge in right antecubital area, using aseptic technique. kc6 Blood collected. 18:59 CT Abd/Pelvis - IV Contrast Only In Process Unspecified. EDMS 19:33 Provided Education on: medication administration. ha1 19:33 No provider procedures requiring assistance completed. IV discontinued, intact, ha1 bleeding controlled, No redness/swelling at site. Pressure dressing applied. Administered Medications: No medications were administered Medication: 19:33 VIS not applicable for this client. ha1 Outcome: 19:22 Discharge ordered by . sb4 19:33 Discharged to home ambulatory, with family. ha1 19:33 Condition: stable 19:33 Discharge instructions given to patient, family, Instructed on discharge instructions, follow up and referral plans. medication usage, Demonstrated understanding of instructions, follow-up care, medications, Prescriptions given X 1. 19:34 Patient left the ED. ha1 Signatures: Dispatcher [employer] EDMS Kenrick Main MD MD kdr Calderon, Audri RN RN aa5 Kira Jurado am2 Stacie Mars RN RN ha1 Anya Jimenez, RAAD RN kc6 Radha Mcginnis PA-C PA-C sb4 Corrections: (The following items were deleted from the chart) 17:08 17:07 PSHx: Cholecystectomy; aa5 aa5
--- NOTE | 2023-02-16 19:23 | EDPHYS ---
Physician Documentation [facility] Name: Verenice Ovalle Age: 32 yrs Sex: Female : 1990 Arrival Date: 02/16/2023 Time: 16:54 Bed 10 Private MD: ED Physician Kenrick Main HPI: 02/16 17:20 This 32 yrs old Female presents to ER via Ambulatory with complaints of Abdominal Pain. sb4 17:20 The patient presents with abdominal pain that is diffuse. Onset: The symptoms/episode sb4 began/occurred 2 week(s) ago. The symptoms do not radiate. The symptoms are described as achy. Modifying factors: The symptoms are alleviated by remaining still, the symptoms are aggravated by coughing, breathing deeply, jumping, movement. The patient has not experienced similar symptoms in the past. The patient has been recently seen by a physician:. 32 year old female presents with 2 weeks of diffuse abdominal pain. States her GB was removed in november. She states that even small movements cause pain. Denies n/v. Reports diarrhea, but attributes that to recent cholecystectomy. Denies fevers, urinary symptoms, shob. 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 - Social history:: Smoking status: Reported history of juuling and/or vaping. ROS: 17:20 Constitutional: Negative for fever, chills, and weight loss, Eyes: Negative for injury, sb4 pain, redness, and discharge, ENT: Negative for injury, pain, and discharge, Cardiovascular: Negative for chest pain, palpitations, and edema, Respiratory: Negative for shortness of breath, cough, wheezing, and pleuritic chest pain, MS/Extremity: Negative for injury and deformity, Skin: Negative for injury, rash, and discoloration, Neuro: Negative for headache, weakness, numbness, tingling, and seizure. 17:20 Abdomen/GI: Positive for abdominal pain, diarrhea, abdominal cramps, Negative for vomiting, constipation, abdominal distension, anorexia, dysphagia, hematemesis, black/tarry stool, rectal bleeding. 17:20 All other systems are negative. Exam: 17:20 Constitutional: This is a well developed, well nourished patient who is awake, alert, sb4 and in no acute distress. Head/Face: Normocephalic, atraumatic. Eyes: Extra-ocular motions intact. Periorbital areas with no swelling, redness, or edema. Cardiovascular: Regular rate and rhythm with a normal S1 and S2. Respiratory: Lungs have equal breath sounds bilaterally, clear to auscultation and percussion. No rales, rhonchi or wheezes noted. No increased work of breathing, no retractions or nasal flaring. Abdomen/GI: Soft, non-tender, no distension. Skin: Warm, dry with normal turgor. Normal color with no rashes, no lesions, and no evidence of cellulitis. MS/ Extremity: Pulses equal, no cyanosis. Neurovascular intact. Full, normal range of motion. Vital Signs: 17:05 BP 144 / 104; Pulse 93; Resp 16 S; Temp 97.7(TE); Pulse Ox 100% on R/A; Weight 88.45 kg aa5 (R); Height 5 ft. 6 in. (R); 18:43 BP 142 / 85; Pulse 91; Resp 17 S; Pulse Ox 100% on R/A; kc6 19:32 BP 140 / 80; Pulse 89; Resp 18 S; Pulse Ox 99% on R/A; ha1 17:05 Body Mass Index 31.47 (88.45 kg, 167.64 cm) aa5 MDM: 16:58 Patient medically screened. sb4 17:20 Differential diagnosis: post op seroma, muscle strain/tear, pancreatitis, gastritis, sb4 ulcer, GI bleed. 19:21 Data reviewed: vital signs, nurses notes, lab test result(s), radiologic studies, I sb4 have discussed the patient's presentation/case with the attending Emergency Department Physician; and as a result, I will discharge patient. Counseling: I had a detailed discussion with the patient and/or guardian regarding: the historical points, exam findings, and any diagnostic results supporting the discharge/admit diagnosis, lab results, radiology results, to return to the emergency department if symptoms worsen or persist or if there are any questions or concerns that arise at home. 02/16 17:16 Order name: CBC with Diff; Complete Time: 18:00 sb4 02/16 17:16 Order name: CMP; Complete Time: 17:59 sb4 02/16 17:16 Order name: Lipase; Complete Time: 17:59 sb4 02/16 17:16 Order name: Test, Urine; Complete Time: 17:59 sb4 02/16 17:16 Order name: Urinalysis w/ reflexes; Complete Time: 18:00 sb4 02/16 17:16 Order name: CT Abd/Pelvis - IV Contrast Only; Complete Time: 19:19 sb4 02/16 17:16 Order name: IV Saline Lock; Complete Time: 17:29 sb4 02/16 17:16 Order name: Labs collected and sent; Complete Time: 17:29 sb4 Administered Medications: No medications were administered Disposition: 20:32 Co-signature as Attending Physician, Patric Martinez MD I reviewed the patient's care rn provided by the Advanced Practice Provider and agree with the diagnosis and treatment plan. Disposition Summary: 02/16/23 19:22 Discharge Ordered Location: Home sb4 Problem: an ongoing problem sb4 Symptoms: are unchanged sb4 Condition: Stable sb4 Diagnosis - Strain of muscle, fascia and tendon of abdomen sb4 Followup: sb4 - With: Private Physician - When: As needed - Reason: Recheck today's complaints, Continuance of care, Re-evaluation by your physician Discharge Instructions: - Discharge Summary Sheet sb4 Forms: - Medication Reconciliation Form sb4 - Thank You Letter sb4 - Antibiotic Education sb4 - Prescription Opioid Use sb4 - Patient Portal Instructions sb4 Prescriptions: - orphenadrine citrate 100 mg Oral Tablet Sustained Release - take 1 tablet by ORAL route 2 times per day As needed; 20 tablet; Refills: 0, sb4 Product Selection Permitted Signatures: Dispatcher [employer] Patric Foster MD MD rn Calderon, Audri, RN RN [email or web address] Radha Mcginnis PA-C PA-C sb4 Corrections: (The following items were deleted from the chart) 17:08 17:07 PSHx: Cholecystectomy; aaDuncan horner
[2023-02-16 19:53] VITALS: TEMP 97.7
[2023-02-16 19:56] VITALS: BP 140/80; O2SAT 99
== END 2023-02-16 19:34 | disposition home or self-care (01) ==
LOC: ER 16:54
DX: S39.011A Strain of muscle, fascia and tendon of abdomen, initial encounter (principal); Z88.0 Allergy status to penicillin
CPT/HCPCS: 85025; 81001; 36415; 81025; 83690; 80053; 74177; 99284; Q9967